=== PATIENT | male | born 1930 | race Two or more races ===

== ENCOUNTER 2017-06-06 03:20 | Inpatient (IN) | payer MEDICARE, OTHER ==
[2017-06-06] VITALS (54 sets, daily range): BP systolic 82–132; BP diastolic 40–76
[~2017-06-06] VITALS: Ht 165.1 cm; Wt 60.8 kg
[~2017-06-06 03:20] MED LIST: ACET650T10 GT; AMLO10TA2 PO; BISA10SU8 RC; COLC0.6T67 GT; DOCU-141 PO; FERR325T24 PO; HYDR-3974 PO; LEVE500T9 GT; MAGN400O6 GT; MULT1CAP34 GT; NA P133E RC; PANT40TA4 PO
--- NOTE | 2017-06-06 03:22 | NUR ---
PT TO ER BED 5. PT [facility]IB[facility] FROM [facility] C/O "TACHYCARDIA/HYPOTENSION AND BLOOD IN GTUBE". PT PLACED ON NRB @15LPM, ROOM AIR O2 SAT AT 81. PT PLACED IN GOWN AND ON GEOPHYSICS PROFESSOR. PT TACHYCARDIC AT 112/RESP EVEN TACHYPNEIC AT 28/NAD NOTED/SKIN WARM AND DRY, RECTAL TEMP AT 102.4/NOTED DARK COLORED DIARRHEA/AOX1. MD AT BEDSIDE. PT HAS F/C AND GTUBE ON ARRIVAL. NOTED DRESSING TO SACRAL AREA.
[2017-06-06] MEDS ORDERED: IV NS 0.9% 1,000 ML BAG IV ONE ×3 (03:30→05:00)
--- NOTE | 2017-06-06 03:35 | NUR ---
18G IV TO R FA X 1 ATTEMPT USING ASEPTIC TECH, BLOOD CULT X 2 AND BLOOD HANDED OVER TO LAB AT BEDSIDE. URINE SPECIMEN FROM SAMANO CATH OBTAINED AND HANDED OVER TO LAB.
[2017-06-06] MEDS ORDERED: PANTOPRAZOLE 40 MG VIAL ONE (03:37)
[2017-06-06] MEDS ORDERED: ACETAMINOPHEN ES 500 MG TABLET ONE (03:38)
[2017-06-06] MEDS ORDERED: PIPERACILLIN /TAZOBACTAM 3.375 G VIAL IV ONE (03:38)
[2017-06-06] MEDS ORDERED: VANCOMYCIN 1 GM VIAL ONE (03:38)
--- NOTE | 2017-06-06 03:45 | NUR ---
EMT AT BEDSIDE TO OBTAIN EKG.
[2017-06-06] MEDS ORDERED: PANTOPRAZOLE 40 MG VIAL IV ONE (04:00)
[2017-06-06] MEDS ORDERED: ACETAMINOPHEN 160 MG/5 ML GT ONE (04:00)
[2017-06-06] MEDS ORDERED: PIPERACILLIN /TAZOBACTAM 3.375 G in IV D5W 50 ML IV ONE (04:00)
[2017-06-06] MEDS ORDERED: VANCOMYCIN 1 GM in IV D5W 250 ML IV ONE (04:00)
--- NOTE | 2017-06-06 04:06 | NUR ---
XRAY AT BEDSIDE.
[2017-06-06 04:14] LABS: APPEARANCE,URINE SL CLOUDY (CLEAR); BILIRUBIN,URINE NEGATIVE (NEGATIVE); BLOOD, URINE 1+ Ery/uL (NEGATIVE); COLOR,URINE YELLOW (YELLOW); KETONES,URINE NEGATIVE (NEGATIVE); LEUKOCYTE ESTERASE ,URINE 1+ (NEGATIVE); NITRITE, URINE NEGATIVE (NEGATIVE); PROTEIN,URINE 1+ mg/dl (NEGATIVE); UGLUCOSE NEGATIVE (NEGATIVE); UROBILINOGEN,URINE 0.2 EU/dL (0.2)
[2017-06-06 04:18] LABS: BASOPHILS # (AUTO) 0.1 /CMM (0.0-0.2); BASOPHILS % (AUTO) 0.3 % (0.0-2.0); EOSINOPHILS # (AUTO) 0.2 /CMM (0.0-0.7); EOSINOPHILS % (AUTO) 1.2 % (0.0-6.0); HEMATOCRIT 28 % (39-51); HEMOGLOBIN 9.7 g/dL (13.5-17.5); LYMPHOCYTES # (AUTO) 0.8 /CMM (0.8-4.8); LYMPHOCYTES % (AUTO) 4.3 % (20.0-44.0); MEAN CORPUSCULAR HEMOGLOBIN 33 PG (26.0-33.0); MEAN CORPUSCULAR HGB CONC 34 g/dl (31.0-36.0); MEAN CORPUSCULAR VOLUME 95 fL (80-96); MONOCYTES # (AUTO) 1.3 /CMM (0.1-1.30); MONOCYTES % (AUTO) 7.4 % (2.0-12.0); NEUTROPHILS # (AUTO) 15.1 /CMM (1.8-8.9); NEUTROPHILS % (AUTO) 86.8 % (43.0-81.0); PLATELET COUNT (AUTO) 357 /CMM (150-450); RDW COEFFICIENT OF VARIATION 15.7 (11.5-15.0); RED BLOOD CELL COUNT(AUTO) 2.97 MIL/uL (4.5-6.0); WHITE BLOOD COUNT (AUTO) 17.5 K/uL (4.3-11.0)
[2017-06-06 04:28] LABS: CALCIUM, SERUM 8.9 mg/dL (8.5-10.1); CARBON DIOXIDE 24 mmol/L (21-32); CHLORIDE 118 mmol/L (98-107); CREATININE 1.8 mg/dL (0.6-1.3); GLUCOSE 108 mg/dL (74-106); POTASSIUM 4.9 mmol/L (3.5-5.1); SODIUM SERUM 153 mmol/L (136-145); UREA NITROGEN, BLOOD 34 mg/dL (7-18)
[2017-06-06 04:30] LABS: BACTERIA,URINE None seen /HPF (None Seen); CALCIUM OXALATE CRYSTALS,UR Few /HPF (None Seen); SQUAMOUS EPITHELIAL CELL,UR Few /HPF (None Seen); YEAST,URINE Many /HPF (None Seen)
[2017-06-06 04:34] LABS: ALANINE AMINOTRANSFERASE 10 U/L (12-78); ALBUMIN 1.5 g/dL (3.4-5.0); ALKALINE PHOSPHATASE 85 U/L (46-116); ASPARTATE AMINOTRANSFERASE 25 U/L (15-37); BILIRUBIN,TOTAL 0.3 mg/dL (0.2-1.0); TOTAL PROTEIN, SERUM 6.1 g/dL (6.4-8.2)
[2017-06-06 04:36] LABS: TROPONIN I < 0.017 ng/mL (0.00-0.056)
[2017-06-06 04:38] LABS: INR 1.05 (0.87-1.13)
[2017-06-06 04:47] LABS: BAND % (MANUAL) 3 % (0.0-5.0); EOSINOPHILS % (MANUAL) 2 % (0-4); LYMPHOCYTES % (MANUAL) 5 % (16-48); MONOCYTES % (MANUAL) 4 % (0-11.0); NEUTROPHILS % (MANUAL) 86 (42-76)
--- NOTE | 2017-06-06 05:11 | NUR ---
SETUP AT BEDSIDE FOR CENTRAL LINE PROCEDURE.
--- NOTE | 2017-06-06 05:34 | NUR ---
AT BEDSIDE FOR CENTRAL LINE PLACEMENT.
--- NOTE | 2017-06-06 06:07 | NUR ---
CALLED WOOD TYPE FINISHER FOR ICU BED
--- NOTE | 2017-06-06 06:07 | NUR ---
CENTRAL LINE TO THE LEFT INTERNAL JUGULAR PLACED BY MD USING CHAIR TRIMMER.
--- NOTE | 2017-06-06 06:10 | NUR ---
ICU 261
[2017-06-06] MEDS ORDERED: NOREPINEPHRINE 4 MG/4 ML AMPUL IV ONE (06:14)
--- NOTE | 2017-06-06 06:18 | NUR ---
XRAY AT BEDSIDE TO CHECK PLACEMENT OF CENTRAL LINE.
--- NOTE | 2017-06-06 06:27 | NUR ---
LEVOPHED 8MG STARTED AT 1MCG/MIN PER MD ORDER. TITRATE PER PROTOCOL.
[2017-06-06] MEDS ORDERED: NOREPINEPHRINE 8 MG in IV D5W 500 ML IV PRN ×8 (06:30→09:30)
--- NOTE | 2017-06-06 06:39 | NUR ---
REPORT GIVEN TO SAE BRUNNER FOR BRYN.
--- NOTE | 2017-06-06 06:43 | NUR ---
LEVOPHED AT 1MCG/MIN INFUSING TO ICU.
[2017-06-06] MEDS ORDERED: ZOLPIDEM TARTRATE 5 MG TABLET PO PRN (07:00)
[2017-06-06] MEDS ORDERED: IV NS 0.9% 1,000 ML IV PRN (07:00)
[2017-06-06] MEDS ORDERED: ONDANSETRON HCL/PF 4 MG/2 ML VIAL IVP PRN (07:00)
[2017-06-06] MEDS ORDERED: ACETAMINOPHEN 325 MG TABLET PO PRN (07:00)
--- NOTE | 2017-06-06 07:00 | NUR ---
LITIGATION SECRETARY RCD PT FROM ER ON ROOM AIR DUSKY COLORED SPO2 70s; PER ER REPORT PT ON NRB MASK. BL SOFT WRIST RESTRAINTS IN PLACE HOWEVER NO ORDER NOTED WILL REMOVE AND ASSESS NEED; SBP 80s WILL START LEVOPHED AT 2 MCG/MIN.
--- NOTE | 2017-06-06 07:05 | NUR ---
HARBOR MASTER C PHYLLIS DOLL WIGS HACKLER AT BEDSIDE TO EVAL PT WITH ORDER FOR ABG.
--- NOTE | 2017-06-06 07:30 | NUR ---
DEVICE PROCESSING ENGINEER NOTES RECEIVED PATIENT LETHARGIC , RESPONSIVE TO TACTILE STIMULI , ON 15LPM NON REBREATHER MASK SPO2 OF 97% AFIB 85 ON BEDSIDE MONITOR , GT PATENT AND INTACT CLAMPED , GREENISH GASTRIC FLUID NOTED UPON ASPIRATION , NO BLEEDING NOTED , FC DRAINING VIA GRAVITY , ON VICKEY BED , SKIN ASSESSMENT DONE , TOOK PICTURES AND PLACED IN THE CHART , WILL ORDER WOUND CONSULT , L IJ TLC PATENT AND INTACT WITH LEVOPHED @ 2MCG/MIN , NS @ 100 ML/HR INFUSING WELL , R FA # 18 PATENT AND INTACT SL , BILATERAL SOFT WRIST RESTRAINS IN PLACE , VISUAL CHECK PER PROTOCOL , ALL NEEDS ATTENDED , BED ON LOW AND LOCKED POSITION , APPLIED PADDED SIDE RAILS X2 , HOB @ 35 , WILL CONTINUE TO MONITOR , AWAITING FOR ADMISSION ORDERS .
[2017-06-06 07:33] LABS: ABG BASE EXCESS -2.4 mmol/L; ABG OXYGEN SATURATION 91.1 % (92.0-98.5); ABG PCO2 34.8 mmHg (35.0-45.0); ABG PH 7.415 (7.350-7.450); AaDO2 609.2 mmHg; COHb 0.3 % (0.5-1.5); MetHb 0.6 % (0.0-1.5); O2Hb 90.3 % (94.0-97.0); SITE, ABG Right Brachial; VENT MODE, BG NON REBREATHER
[2017-06-06 07:52] LABS: BILIRUBIN,DIRECT 0.1 mg/dL (0.0-0.2)
[2017-06-06] MEDS ORDERED: MICAFUNGIN SODIUM 150 MG in IV NS 0.9% 100 ML IV SCH (08:00)
[2017-06-06] MEDS: AMLODIPINE BESYLATE 10 MG TABLET PO SCH (08:37)
[2017-06-06] MEDS ORDERED: FEE PK DOSING 1 MIN EA MC ONE (08:46)
[2017-06-06] MEDS ORDERED: HEPARIN SODIUM, PORCINE 5000 UNITS/1 ML VIAL SQ SCH (09:00)
[2017-06-06] MEDS: FERROUS SULFATE (325 MG) 325 MG/TAB TABLET PO SCH (09:08)
[2017-06-06] MEDS: MULTIVITAMINS,THERAGRAN 1 UDTAB TABLET PO SCH (09:08)
[2017-06-06] MEDS: LEVETIRACETAM (250 MG) 250 MG TABLET PO SCH ×3 (09:08→21:04)
[2017-06-06] MEDS: DOCUSATE SODIUM 100 MG CAPSULE PO SCH ×2 (09:08→16:05)
[2017-06-06] MEDS: COLCHICINE 0.6 MG TABLET PO SCH (09:10)
--- NOTE | 2017-06-06 12:00 | NUR ---
WHITE KID BUFFER NOTES SEEN AND EVALUATED BY TERI GRAHAM , DISCUSSED WOUND ASSESSMENT , BIG MACHINE CONSULTANT AWARE , AWAITING FOR WOUND TX ORDER
[2017-06-06 12:29] LABS: HEMOGLOBIN 7.7 g/dL (13.5-17.5)
[2017-06-06] MEDS: PIPERACILLIN /TAZOBACTAM 2.25 G in IV D5W 50 ML IV SCH ×2 (13:00→16:59)
[2017-06-06] MEDS: IV 1/2NS 1000 ML 1,000 ML IV PRN ×2 (13:05→20:59)
--- NOTE | 2017-06-06 13:20 | NUR ---
CLINICAL ENGINEERING DIRECTOR NOTES AND DAUGHTER AT BEDSIDE , DISCUSSED PLAN OF WOUND DEBRIDEMENT OF SACRAL AND RIGHT BUTTOCK WOUND , DAUGHTER TRANSLATING THE PROCEDURE TO HER MOTHER IN MONTSERRATIAN , DISCUSSED RISK AND BENEFITS OF THE PROCEDURE , AGREED , DR HERRERA AT BEDSIDE , DISCUSSED PATIENT CHIEF COMPLAINT AND DIAGNOSIS , LABS , ABG RESULT AND CHEST XRAY , NOTED WITH MODERATE AMOUNT OF DARK TARRY STOOL , STOOL OB SENT TO LAB , OFF PRESSORS WITH SBP OF 100'S , AWARE AWAITING FOR ORDERS Addendum: 06/06/17 at 1829 by RAMIN AYALA RN PER KEEP PATIENT NPO EXCEPT MEDS
--- NOTE | 2017-06-06 13:27 | NUR ---
SPUDDER NOTES CALLED DR VILLARREAL , DISCUSSED REPEAT H/H RESULT , AWARE , AWAITING FOR ORDERS
[2017-06-06] MEDS ORDERED: IV LR 1000 ML 1,000 ML IV ONE (16:00)
--- NOTE | 2017-06-06 16:00 | NUR ---
ENVIRONMENTAL PROJECTS ADVISOR NOTES SEEN AND EVALUATED BY DR PETERSON , NOTIFIED PT IS OFF PRESSORS SINCE 929 WITH SBP OF 90-100'S , ON 15LPM MASK SPO2 OF 100% DISCUSSED LABS , ABG , CHEST XRAY RESULT , REVIEWED ACTUAL CHEST XRAY FILM TO VERIFY L IJ TLC PLACEMENT , PER MD CENTRAL LINE ON THE RIGHT PLACE , PENDING 1 UNIT PRBC 'S PT HAD MODERATE DARK TARRY STOOL , AWARE
[2017-06-06] MEDS: PANTOPRAZOLE 40 MG VIAL IV SCH (16:06)
[2017-06-06] MEDS: Z GUARD REMEDY 2 OZ OINT TP PRN (16:59)
[2017-06-06 18:11] LABS: HEMOGLOBIN 7.4 g/dL (13.5-17.5)
--- NOTE | 2017-06-06 18:28 | NUR ---
SUCTION DRUM DRIER OPERATOR NOTES TITRATED O2 TO 10LPM MASK , NOTED WITH DESATURATION @ 70% , PLACED BACK PT TO NON REBREATHER MASK @ 15LPM , SPO2 OF 97%
[2017-06-07] VITALS (30 sets, daily range): BP systolic 91–147; BP diastolic 52–77
[2017-06-07] MEDS: PIPERACILLIN /TAZOBACTAM 2.25 G in IV D5W 50 ML IV SCH ×4 (00:15→17:00)
[2017-06-07] MEDS: VANCOMYCIN 0.75 GM in IV D5W 250 ML IV SCH (04:02)
[2017-06-07 04:41] LABS: BASOPHILS % (AUTO) 0.2 % (0.0-2.0); EOSINOPHILS # (AUTO) 1.5 /CMM (0.0-0.7); EOSINOPHILS % (AUTO) 12.7 % (0.0-6.0); HEMATOCRIT 21 % (39-51); LYMPHOCYTES # (AUTO) 0.5 /CMM (0.8-4.8); LYMPHOCYTES % (AUTO) 4.2 % (20.0-44.0); MEAN CORPUSCULAR HEMOGLOBIN 31 PG (26.0-33.0); MEAN CORPUSCULAR HGB CONC 32 g/dl (31.0-36.0); MEAN CORPUSCULAR VOLUME 95 fL (80-96); MONOCYTES # (AUTO) 0.5 /CMM (0.1-1.30); MONOCYTES % (AUTO) 4.5 % (2.0-12.0); NEUTROPHILS # (AUTO) 9.4 /CMM (1.8-8.9); NEUTROPHILS % (AUTO) 78.4 % (43.0-81.0); PLATELET COUNT (AUTO) 199 /CMM (150-450); RDW COEFFICIENT OF VARIATION 16.7 (11.5-15.0)
[2017-06-07 04:51] LABS: HEMOGLOBIN 6.7 g/dL (13.5-17.5)
[2017-06-07 05:03] LABS: CALCIUM, SERUM 7.7 mg/dL (8.5-10.1); CARBON DIOXIDE 28 mmol/L (21-32); CHLORIDE 121 mmol/L (98-107); CREATININE 1.5 mg/dL (0.6-1.3); GLUCOSE 73 mg/dL (74-106); MAGNESIUM 1.6 mg/dL (1.8-2.4); PHOSPHORUS 3.1 mg/dL (2.5-4.9); SODIUM SERUM 151 mmol/L (136-145); UREA NITROGEN, BLOOD 39 mg/dL (7-18)
[2017-06-07 05:04] LABS: CHOLESTEROL 60 mg/dL (<200); HDL CHOLESTEROL 18 mg/dL (40-60); LDL 28 mg/dL (0-99); TRIGLYCERIDES 70 mg/dL (30-150)
[2017-06-07 05:29] LABS: EOSINOPHILS % (MANUAL) 9 % (0-4); LYMPHOCYTES % (MANUAL) 7 % (16-48); MONOCYTES % (MANUAL) 3 % (0-11.0); NEUTROPHILS % (MANUAL) 81 (42-76)
--- NOTE | 2017-06-07 07:05 | NUR ---
RN INITIAL NOTES RECEIVED PT ASLEEP, EASY TO AROUSE. PT ON NON-REBREATHER AT 15LPM. HOB ELEVATED. NO RESPIRATORY DISTRESS NOTED. NO SIGNS OF PAIN NOTED. LIJ TLC IN PLACE. IVF INFUSING. GT IN PLACE, CLAMPED. FC IN PLACE. BLE ELEVATED. PT COMFORTABLE. WILL CONTINUE TO MONITOR.
[2017-06-07] MEDS ORDERED: PANTOPRAZOLE 40 MG TABLET.DR PO SCH (07:30)
[2017-06-07] MEDS: LEVETIRACETAM (250 MG) 250 MG TABLET PO SCH ×2 (08:16→21:04)
[2017-06-07] MEDS: PANTOPRAZOLE 40 MG VIAL IV SCH ×2 (08:16→17:00)
[2017-06-07] MEDS: COLCHICINE 0.6 MG TABLET PO SCH (08:16)
[2017-06-07] MEDS: FERROUS SULFATE (325 MG) 325 MG/TAB TABLET PO SCH (08:16)
[2017-06-07] MEDS: DOCUSATE SODIUM 100 MG CAPSULE PO SCH ×2 (08:16→17:00)
[2017-06-07] MEDS: MULTIVITAMINS,THERAGRAN 1 UDTAB TABLET PO SCH (08:16)
[2017-06-07] MEDS: AMLODIPINE BESYLATE 10 MG TABLET PO SCH (08:16)
--- NOTE | 2017-06-07 08:48 | NUR ---
RN NOTES 1 UNIT OF PRBC STARTED TRANSFUSING. RI TLC IN PLACE. AFEBRILE. VITAL SIGNS STABLE. WILL CLOSELY MONITOR. Addendum: 06/07/17 at 1846 by SINDI SANTOS RN [id number] 1 UNIT OF PRBC TRANSFUSED. NO BT REACTION NOTED. PT REMAINS AFEBRILE. TOLERATED WELL. WILL CLOSELY MONITOR.
[2017-06-07 09:30] LABS: ABG BASE EXCESS -5.6 mmol/L; ABG OXYGEN SATURATION 97.9 % (92.0-98.5); ABG PCO2 31.1 mmHg (35.0-45.0); ABG PH 7.395 (7.350-7.450); ABG PO2 169.7 mmHg (75.0-100.0); AaDO2 512.2 mmHg; COHb 0.3 % (0.5-1.5); MetHb 2.2 % (0.0-1.5); O2Hb 95.5 % (94.0-97.0); SITE, ABG Left Radial; VENT MODE, BG NON REBREATHER
[2017-06-07] MEDS: IV 1/2NS 1000 ML 1,000 ML IV PRN ×2 (09:31→21:22)
--- NOTE | 2017-06-07 09:50 | NUR ---
RN NOTES SEEN AND EXAMINED BY DR. VILLARREAL. AWARE OF LAB VALUES: WBC 12., HGB 6.7, HCT 21, PLATELET 199. NO SIGNS OF ACTIVE BLEEDING NOTED. 1 UNIT OF PRBC TRANSFUSING. SODIUM 151, BUN 19, CREA 1.5. MD ORDERED CONSULT WITH DR. GRIFFIN FOR GI BLEED AND STANDING ORDER TO GIVE 2 UNITS OF PRBC FOR HGB<7. WILL RECHECK H/H 1 HR POST BT. WILL CONTINUE TO MONITOR.
--- NOTE | 2017-06-07 10:04 | NUR ---
WOUND CARE CONSULT WOUND CARE RECEIVED CONSULT. WOUND CARE WILL DEFER TO SURGICAL TEAM AT THIS TIME SURGICAL TEAM FOLLOWING. TREATMENT ORDERS PER SURGICAL TEAM. PATIENT WITH NAFISA AT 11, ALL PRESSURE ULCER PREVENTION MEASURES NOTED TO BE IN PLACE AT THIS TIME.
--- NOTE | 2017-06-07 10:15 | NUR ---
RN NOTES SEEN AND EXAMINED BY DR. ALCARAZ. PT ON NON-REBREATHER AT 15LPM. HOB ELEVATED. AWARE OF LATEST CXR RESULT. AWARE OF ABG RESULT AND ORDERED PLACE ON AT 6LPM AND KEEP O2 SAT ABOVE 91%. WILL CLOSELY MONITOR.
--- NOTE | 2017-06-07 11:15 | NUR ---
RN NOTES SP SACRAL DEBRIDEMENT BY DR. HUYNH. COVERED WITH MEPILEX. WILL KEEP CLEAN AND DRY. WILL REPOSITION Q2. WILL CONTINUE TO MONITOR.
[2017-06-07] MEDS ORDERED: Magnesium 1GM/D5W 100ML PREMIX 100 ML IV SCH (11:30)
[2017-06-07] MEDS: HYDROCODONE/APAP 5/325MG 1 EACH TABLET PO PRN (12:32)
[2017-06-07 13:37] LABS: HEMOGLOBIN 7.8 g/dL (13.5-17.5)
--- NOTE | 2017-06-07 16:30 | NUR ---
RN NOTES SEEN AND EXAMINED BY ROBIN PAREKH. REVIEWED H&P, CURRENT MEDS AND LAB VALUES. ORDERED EGD IN AM. AT BEDSIDE AWARE. CONSENT OBTAINED FROM . WILL KEEP PT NPO. NO SIGNS OF ACTIVE BLEEDING NOTED. WILL MONITOR.
--- NOTE | 2017-06-07 18:42 | NUR ---
RN CLOSING NOTES PT KEPT ON 02 AT 6PM VIA NC. KEPT 02 SAT >91%. KEPT HOB ELEVATED. NO RESPIRATORY DISTRESS NOTED. NO SIGNS OF PAIN NOTED. IV LINE IN PLACE. AWAITING FOR MIDLINE INSERTION. IVF INFUSING. GT CLAMPED. FC IN PLACE. KEPT CLEAN AND DRY. TX PROVIDED ORDERED. REPOSITIONED Q2. KEPT COMFORTABLE. WILL ENDORSE FOR CONTINUITY OF CARE.
--- NOTE | 2017-06-07 18:59 | NUR ---
RN NOTES [facility] CALLED REGARDING POSITIVE MRSA NARES RESULT FOR PT. DR. HERRERA AWARE. ORDERED CONTACT ISOLATION AND BACTROBAN. WILL CONTINUE TO MONITOR.
[2017-06-07 19:29] LABS: HEMOGLOBIN 8.6 g/dL (13.5-17.5)
--- NOTE | 2017-06-07 20:00 | NUR ---
PARK SERVICES SPECIALIST - NOTES - PT KEPT ON 02 AT 6PM VIA NC. KEPT 02 SAT >91%. KEPT HOB ELEVATED. NO RESPIRATORY DISTRESS NOTED. NO SIGNS OF PAIN NOTED. IV LINE IN PLACE. AWAITING FOR MIDLINE INSERTION. IVF INFUSING. GT CLAMPED. FC IN PLACE. KEPT CLEAN AND DRY. TX PROVIDED ORDERED. REPOSITIONED Q2. KEPT COMFORTABLE. WILL CONTINUE TO MONITOR
[2017-06-07] MEDS: MUPIROCIN OINT 2% 22 GM TUBE SCH (21:00)
--- NOTE | 2017-06-07 21:00 | NUR ---
Left upper arm midline inserted by saul Evans, JIM.
[2017-06-08] VITALS (24 sets, daily range): BP systolic 115–140; BP diastolic 58–77
[2017-06-08 05:04] LABS: BASOPHILS % (AUTO) 0.3 % (0.0-2.0); EOSINOPHILS # (AUTO) 2.7 /CMM (0.0-0.7); HEMATOCRIT 23 % (39-51); HEMOGLOBIN 7.9 g/dL (13.5-17.5); LYMPHOCYTES # (AUTO) 0.5 /CMM (0.8-4.8); LYMPHOCYTES % (AUTO) 4.9 % (20.0-44.0); MEAN CORPUSCULAR HEMOGLOBIN 33 PG (26.0-33.0); MEAN CORPUSCULAR HGB CONC 34 g/dl (31.0-36.0); MEAN CORPUSCULAR VOLUME 97 fL (80-96); MONOCYTES # (AUTO) 0.5 /CMM (0.1-1.30); NEUTROPHILS # (AUTO) 6.1 /CMM (1.8-8.9); NEUTROPHILS % (AUTO) 62.1 % (43.0-81.0); PLATELET COUNT (AUTO) 202 /CMM (150-450); RDW COEFFICIENT OF VARIATION 15.9 (11.5-15.0); RED BLOOD CELL COUNT(AUTO) 2.41 MIL/uL (4.5-6.0); WHITE BLOOD COUNT (AUTO) 9.8 K/uL (4.3-11.0)
[2017-06-08 05:11] LABS: EOSINOPHILS % (AUTO) 27.7 % (0.0-6.0)
[2017-06-08 05:28] LABS: CALCIUM, SERUM 7.1 mg/dL (8.5-10.1); CARBON DIOXIDE 23 mmol/L (21-32); CHLORIDE 116 mmol/L (98-107); CREATININE 1.5 mg/dL (0.6-1.3); GLUCOSE 56 mg/dL (74-106); MAGNESIUM 1.8 mg/dL (1.8-2.4); PHOSPHORUS 3.4 mg/dL (2.5-4.9); POTASSIUM 3.6 mmol/L (3.5-5.1); SODIUM SERUM 146 mmol/L (136-145); UREA NITROGEN, BLOOD 35 mg/dL (7-18)
[2017-06-08] MEDS: PIPERACILLIN /TAZOBACTAM 2.25 G in IV D5W 50 ML IV SCH ×6 (05:38→23:15)
[2017-06-08] MEDS: VANCOMYCIN 0.75 GM in IV D5W 250 ML IV SCH (05:38)
[2017-06-08 05:44] LABS: EOSINOPHILS % (MANUAL) 22 % (0-4); LYMPHOCYTES % (MANUAL) 2 % (16-48); MONOCYTES % (MANUAL) 5 % (0-11.0); NEUTROPHILS % (MANUAL) 71 (42-76)
--- NOTE | 2017-06-08 07:10 | NUR ---
RN INITIAL NOTES RECEIVED PT ASLEEP, EASY TO AROUSE. PT ON 02 AT 6LPM VIA NC. HOB ELEVATED. NO RESPIRATORY DISTRESS NOTED. NO SIGNS OF PAIN NOTED. RADHA MIDLINE IN PLACE. IVF INFUSING. GT IN PLACE, CLAMPED. FC IN PLACE. BLE ELEVATED. PT COMFORTABLE. WILL CONTINUE TO MONITOR.
[2017-06-08] MEDS: PANTOPRAZOLE 40 MG VIAL IV SCH (08:34)
[2017-06-08] MEDS: LEVETIRACETAM (250 MG) 250 MG TABLET PO SCH ×2 (08:34→20:30)
[2017-06-08] MEDS: COLCHICINE 0.6 MG TABLET PO SCH (08:42)
[2017-06-08] MEDS: MULTIVITAMINS,THERAGRAN 1 UDTAB TABLET PO SCH (08:42)
[2017-06-08] MEDS: DOCUSATE SODIUM 100 MG CAPSULE PO SCH ×2 (08:42→17:04)
[2017-06-08] MEDS: FERROUS SULFATE (325 MG) 325 MG/TAB TABLET PO SCH (08:42)
[2017-06-08] MEDS: AMLODIPINE BESYLATE 10 MG TABLET PO SCH (08:45)
[2017-06-08 09:25] LABS: INR 1.02 (0.87-1.13)
[2017-06-08] MEDS: IV 1/2NS 1000 ML 1,000 ML IV PRN ×2 (09:26→22:12)
--- NOTE | 2017-06-08 09:30 | NUR ---
RN NOTES SEEN AND EXAMINED BY DR. ALCARAZ. PT ON AT 6LPM VIA NC. 02 SAT >91%. HOB ELEVATED. PT FOR EGD. WILL CONTINUE TO MONITOR.
--- NOTE | 2017-06-08 09:50 | NUR ---
RN NOTES PT LEFT FOR EGD. PT AWAKE, A/0X1. ON 02 AT 6LPM VIA NC. VS WNL. RADHA MIDLINE IN PLACE. LEFT IN STABLE CONDITION
--- NOTE | 2017-06-08 11:01 | NUR ---
RN NOTES DR. JAMA IN THE UNIT. PT IN THE RECOVERY ROOM, SP EGD. MD AWARE OF LAB VALUES AND EGD RESULT. DR. HARTMANN IN THE UNIT. PER DR. HARTMANN, MAY START GTF. WILL CLOSELY MONITOR ONCE PT GETS BACK IN THE UNIT FROM RECOVERY.
--- NOTE | 2017-06-08 11:10 | NUR ---
RN NOTES PT BACK FOR RECOVERY. SP EGD. PT DROWSY, ON 02 MASK AT 10LPM. PT CONNECTED TO MONITOR. HOB ELEVATED. NO SIGNS OF PAIN NOTED. ALL ORDERED NOTED AND CARRIED OUT. WILL START GTF ORDERED BY DR. HARTMANN. WILL CLOSELY MONITOR.
[2017-06-08] MEDS: MUPIROCIN OINT 2% 22 GM TUBE SCH ×2 (11:46→20:31)
[2017-06-08 12:19] LABS: THYROID STIMULATING HORMONE 118.23 uIU/mL (0.358-3.74)
[2017-06-08] MEDS: FIBERSOURCE HN 1,000 ML BOTTLE GT PRN (15:29)
[2017-06-08] MEDS ORDERED: PANTOPRAZOLE 40 MG TABLET.DR PO SCH (17:00)
--- NOTE | 2017-06-08 18:37 | NUR ---
RN CLOSING NOTES NO SIGNIFICANT CHANGE NOTED. TOLERATING 6LPM VIA NC. HOB ELEVATED. NO RESPIRATORY DISTRESS NOTED. MIDLINE IN PLACE. IVF INFUSING. GT IN PLACE. GTF STARTED. NO RESIDUAL NOTED. FC IN PLACE. TX PROVIDED ORDERED. KEPT CLEAN AND DRY. REPOSITIONED Q2. BLE ELEVATED.KEPT COMFORTABLE. WILL ENDORSE FOR CONTINUITY OF CARE.
[2017-06-08] MEDS: FLUCONAZOLE (100 MG) 100 MG TABLET PO SCH (19:34)
--- NOTE | 2017-06-08 20:00 | NUR ---
WOOD ROUTER - NOTES - PT KEPT ON 02 AT 6PM VIA NC. KEPT 02 SAT >91%. KEPT HOB ELEVATED. NO RESPIRATORY DISTRESS NOTED. NO SIGNS OF PAIN NOTED. RADHA MIDLINE AND RIGHT HAND 20G IV LINE IN PLACE. AWAITING FOR MIDLINE INSERTION. IVF INFUSING. PEG WITH FIBERSOURCE @ 20 ML/HR, GOAL 60 ML/HR, NO RESIDUALS TOLERATING WELL. FC IN PLACE. KEPT CLEAN AND DRY. TX PROVIDED ORDERED. REPOSITIONED Q2. KEPT COMFORTABLE. WILL CONTINUE TO MONITOR
[2017-06-09] VITALS (25 sets, daily range): BP systolic 101–138; BP diastolic 45–85
[2017-06-09] MEDS: VANCOMYCIN 0.75 GM in IV D5W 250 ML IV SCH (04:49)
[2017-06-09 05:08] LABS: BASOPHILS % (AUTO) 0.5 % (0.0-2.0); EOSINOPHILS # (AUTO) 2.8 /CMM (0.0-0.7); HEMATOCRIT 25 % (39-51); HEMOGLOBIN 8.4 g/dL (13.5-17.5); LYMPHOCYTES # (AUTO) 0.5 /CMM (0.8-4.8); MEAN CORPUSCULAR HEMOGLOBIN 32 PG (26.0-33.0); MEAN CORPUSCULAR HGB CONC 34 g/dl (31.0-36.0); MEAN CORPUSCULAR VOLUME 95 fL (80-96); MONOCYTES # (AUTO) 0.4 /CMM (0.1-1.30); MONOCYTES % (AUTO) 5.1 % (2.0-12.0); NEUTROPHILS % (AUTO) 51.8 % (43.0-81.0); PLATELET COUNT (AUTO) 187 /CMM (150-450); WHITE BLOOD COUNT (AUTO) 7.6 K/uL (4.3-11.0)
[2017-06-09 05:12] LABS: EOSINOPHILS % (AUTO) 36.6 % (0.0-6.0)
[2017-06-09 05:28] LABS: CALCIUM, SERUM 7.5 mg/dL (8.5-10.1); CARBON DIOXIDE 19 mmol/L (21-32); CHLORIDE 113 mmol/L (98-107); CREATININE 1.6 mg/dL (0.6-1.3); GLUCOSE 83 mg/dL (74-106); POTASSIUM 3.7 mmol/L (3.5-5.1); SODIUM SERUM 144 mmol/L (136-145); UREA NITROGEN, BLOOD 32 mg/dL (7-18)
[2017-06-09 06:03] LABS: NEUTROPHILS % (MANUAL) 57 (42-76)
[2017-06-09 06:04] LABS: BAND % (MANUAL) 1 % (0.0-5.0); EOSINOPHILS % (MANUAL) 34 % (0-4); LYMPHOCYTES % (MANUAL) 5 % (16-48); MONOCYTES % (MANUAL) 3 % (0-11.0)
[2017-06-09] MEDS: PIPERACILLIN /TAZOBACTAM 2.25 G in IV D5W 50 ML IV SCH ×4 (06:06→23:04)
--- NOTE | 2017-06-09 06:39 | NUR ---
PT DESATTING INTO LOW 80S AND STARTING TO HAVE ECTOPY PVCS, COUPLETS ON 6L NC, PT SOUNDS VERY CONGESTED UNABLE TO EFFECTIVELY CLEAR SECRETIONS, NT SUCTION DONE X2 WITH THICK MUCUS SUCTIONED, DR BAIN NOTIFIED, AND ORDERED BREATHING TREATMENTS, WILL CONTINUE TO MONITOR
--- NOTE | 2017-06-09 07:39 | NUR ---
GEAR SETTER NOTES RECEIVED PATIENT AROUSABLE TO VERBAL STIMULI , NOT IN ACUTE DISTRESS , SPO2 OF 94% VIA 6LPM NC , SR WITH 1ST DEGREE AV BLOCK 61 ON BEDSIDE MONITOR , GT PATENT AND INTACT WITH GT FEEDING OF FIBERSOURCE @ 60ML/HR TOLERATING WELL WITH NO RESIDUALS NOTED , FC DRAINING VIA GRAVITY , ON VICKEY BED , RADHA MIDLINE PATENT AND INTACT WITH 1/2 NS @ 100ML/HR INFUSING WELL , R HAND # 20 PATENT AND INTACT SL , BILATERAL SOFT WRIST RESTRAINS IN PLACE , VISUAL CHECK PER PROTOCOL , ALL NEEDS ATTENDED , BED ON LOW AND LOCKED POSITION , PADDED SIDE RAILS X2 , HOB @ 35 , WILL CONTINUE TO MONITOR ,
[2017-06-09] MEDS: FERROUS SULFATE (325 MG) 325 MG/TAB TABLET PO SCH (08:02)
[2017-06-09] MEDS: MULTIVITAMINS,THERAGRAN 1 UDTAB TABLET PO SCH (08:02)
[2017-06-09] MEDS: AMLODIPINE BESYLATE 10 MG TABLET PO SCH (08:02)
[2017-06-09] MEDS: PANTOPRAZOLE 40 MG/PACK PACK GT SCH ×2 (08:02→21:26)
[2017-06-09] MEDS: DOCUSATE SODIUM 100 MG CAPSULE PO SCH ×2 (08:02→17:00)
[2017-06-09] MEDS: COLCHICINE 0.6 MG TABLET PO SCH (08:02)
[2017-06-09] MEDS: LEVETIRACETAM (250 MG) 250 MG TABLET PO SCH ×2 (08:06→21:26)
[2017-06-09] MEDS: MUPIROCIN OINT 2% 22 GM TUBE SCH ×2 (08:07→21:27)
[2017-06-09] MEDS: FLUCONAZOLE (100 MG) 100 MG TABLET PO SCH (08:07)
[2017-06-09 08:08] LABS: T3, FREE 1.2 pg/mL (2.0-4.4)
[2017-06-09] MEDS: ACETYLCYSTEINE 10% SOLN 400 MG/4 ML VIAL NEB SCH ×3 (08:47→23:13)
[2017-06-09] MEDS: IPRATROPIUM NEB FS 0.5 MG/2.5 ML AMPUL.NEB NEB SCH ×3 (08:47→19:23)
[2017-06-09] MEDS: ALBUTEROL FS 2.5 MG/0.5 ML VIAL.NEB NEB SCH ×5 (08:47→23:13)
--- NOTE | 2017-06-09 09:30 | NUR ---
RN NOTES SEEN AND EXAMINED BY DR. ALCARAZ. DISCUSSED LABS , PENDING ABG RESULT , PT ON AT 6LPM VIA NC. 02 SAT >92%-94%. NOTED WITH CONGESTION , DEEP SUCTION PATIENT NOTED WITH THICK SECRETIONS WITH MUCUS PLUG , AFEBRILE , V/S STABLE , DISCUSSED RESULT OF EGD , PT NOTED OT HAVE DARK TARRY STOOLS . Addendum: 06/09/17 at 0934 by RAMIN AYALA RN DISCUSSED THAT PATIENT HAD EPISODES OF DESATURATION LAST NIGHT SPO2 OF 70-80% ON 6LPM , DEEP SUCTION PATIENT , AND PLACED ON NON REBREATHER MASK PER NIGHT RN ,
[2017-06-09 09:40] LABS: ABG BASE EXCESS -6.7 mmol/L; ABG OXYGEN SATURATION 95.9 % (92.0-98.5); ABG PH 7.403 (7.350-7.450); ABG PO2 88.1 mmHg (75.0-100.0); AaDO2 251.3 mmHg; COHb 0.3 % (0.5-1.5); MetHb 0.5 % (0.0-1.5); O2Hb 95.1 % (94.0-97.0); SITE, ABG Right Radial; VENT MODE, BG ON RESP TX MASK
[2017-06-09] MEDS: IV 1/2NS 1000 ML 1,000 ML IV PRN ×2 (10:10→18:33)
--- NOTE | 2017-06-09 11:13 | NUR ---
WOOL SHEARER NOTES SEEN AND EVALUATED BY DR JAMA , PT MORE AWAKE , DISCUSSED LABS , CHEST XRAY AND ABG RESULT , CURRENTLY @ 6LPM NC SPO2 OF 90-92% , DEEP SUCTIONED PT NOTED WITH MUCUS PLUG AND THICK YELLOWISH SECRETIONS , AFEBRILE NOTED WITH MOD AMOUNT OF DARK TARRY STOOLS , MD AWARE
--- NOTE | 2017-06-09 11:31 | NUR ---
BRANCH SPECIALIST NOTES PATIENT NOTEDWITH DESATURATION SPO2 OF 87-88 SUSTAINING , DEEP SUCTIONED PT NOTED WITH THICK SECRETIONS , PLACED PT ON 10LPM SIMPLE MASK, WILL CONTINUE TO MONITOR
--- NOTE | 2017-06-09 12:36 | NUR ---
PENS AND PENCILS DIPPER NOTES RELAYED ABG RESULT TO DR ALCARAZ , NO NEW ORDERS RECEIVED .
[2017-06-09] MEDS: FIBERSOURCE HN 1,000 ML BOTTLE GT PRN (13:06)
--- NOTE | 2017-06-09 13:10 | NUR ---
FISHER POUND NET OR TRAP NOTES SEEN AND EVALUATED BY IGLESIA KELLY , DISCUSSED LABS , V/S , NOTED WITH MODERATE AMOUNT OF DARK TARRY STOOLS , TOLERATING GT FEEDING , SENIOR TABLEAU DEVELOPER AWARE
[2017-06-09] MEDS: HYDROCODONE/APAP 5/325MG 1 EACH TABLET PO PRN (13:28)
--- NOTE | 2017-06-09 20:40 | NUR ---
received pt from day shift, alert, does not follow commands, SR 1 degree AV block, on simple mask at 8L, sat well, lungs congested/diminished, deep suction done, GT feeding tolerates well, f/c low output MD aware, v/s stable, no pain, pt turned and repositioned.
[2017-06-10] VITALS (25 sets, daily range): BP systolic 107–135; BP diastolic 57–73
--- NOTE | 2017-06-10 00:31 | NUR ---
pt is resting in the bed, v/s stable, no pain, pt turned and repositioned q2hrs.
[2017-06-10] MEDS: ALBUTEROL FS 2.5 MG/0.5 ML VIAL.NEB NEB SCH ×6 (02:45→23:12)
[2017-06-10] MEDS: IPRATROPIUM NEB FS 0.5 MG/2.5 ML AMPUL.NEB NEB SCH ×4 (02:45→19:01)
[2017-06-10] MEDS: IV 1/2NS 1000 ML 1,000 ML IV PRN ×2 (03:36→17:02)
--- NOTE | 2017-06-10 04:21 | NUR ---
pt is resting in the bed, no acute distress overnight, tolerates feeding, v/s stable, no pain, pt cleaned, changed and repositioned q2hrs.
[2017-06-10] MEDS: PIPERACILLIN /TAZOBACTAM 2.25 G in IV D5W 50 ML IV SCH ×4 (05:14→23:21)
[2017-06-10] MEDS: VANCOMYCIN 0.75 GM in IV D5W 250 ML IV SCH (05:14)
[2017-06-10 05:22] LABS: BASOPHILS % (AUTO) 0.3 % (0.0-2.0); EOSINOPHILS # (AUTO) 2.5 /CMM (0.0-0.7); HEMATOCRIT 24 % (39-51); HEMOGLOBIN 8.2 g/dL (13.5-17.5); LYMPHOCYTES # (AUTO) 0.5 /CMM (0.8-4.8); LYMPHOCYTES % (AUTO) 6.3 % (20.0-44.0); MEAN CORPUSCULAR HEMOGLOBIN 33 PG (26.0-33.0); MEAN CORPUSCULAR HGB CONC 34 g/dl (31.0-36.0); MEAN CORPUSCULAR VOLUME 96 fL (80-96); MONOCYTES # (AUTO) 0.7 /CMM (0.1-1.30); MONOCYTES % (AUTO) 8.2 % (2.0-12.0); NEUTROPHILS # (AUTO) 4.4 /CMM (1.8-8.9); NEUTROPHILS % (AUTO) 54.5 % (43.0-81.0); PLATELET COUNT (AUTO) 173 /CMM (150-450); RDW COEFFICIENT OF VARIATION 16.1 (11.5-15.0)
[2017-06-10 05:35] LABS: EOSINOPHILS % (AUTO) 30.7 % (0.0-6.0)
[2017-06-10 05:43] LABS: CALCIUM, SERUM 7.1 mg/dL (8.5-10.1); CARBON DIOXIDE 21 mmol/L (21-32); CHLORIDE 109 mmol/L (98-107); CREATININE 1.7 mg/dL (0.6-1.3); GLUCOSE 114 mg/dL (74-106); MAGNESIUM 1.5 mg/dL (1.8-2.4); POTASSIUM 3.7 mmol/L (3.5-5.1); SODIUM SERUM 139 mmol/L (136-145); UREA NITROGEN, BLOOD 33 mg/dL (7-18)
[2017-06-10 06:03] LABS: EOSINOPHILS % (MANUAL) 27 % (0-4); LYMPHOCYTES % (MANUAL) 2 % (16-48); MONOCYTES % (MANUAL) 8 % (0-11.0); NEUTROPHILS % (MANUAL) 63 (42-76)
--- NOTE | 2017-06-10 07:15 | NUR ---
CONTRACTS MANAGER NOTES ISO MRSA NARES. PT RESTING COMFORTABLY. DNR INTUBATION OKAY. SR AVB. SIMPLE MASK 8L. HOB ELEVATED. FIBERSOURCE 60ML HR PEG. SACRUM STAGE III, SCROTAL ABRASION. RADHA MIDLINE 1/2 NS @100ML. MG 1.5L. OB STOOL POS HGB STABLE PROTONIX. BED IN LOW LOCKED POSITION. CALL LIGHT IN REACH. SIDE RAILS UP X 2. WILL CONT TO MONITOR CLOSELY.
[2017-06-10] MEDS: ACETYLCYSTEINE 10% SOLN 400 MG/4 ML VIAL NEB SCH ×3 (07:33→23:13)
[2017-06-10] MEDS: FERROUS SULFATE (325 MG) 325 MG/TAB TABLET PO SCH (08:33)
[2017-06-10] MEDS: LEVOTHYROXINE SODIUM 75 MCG TABLET PO SCH (08:33)
[2017-06-10] MEDS: FLUCONAZOLE (100 MG) 100 MG TABLET PO SCH (08:33)
[2017-06-10] MEDS: MULTIVITAMINS,THERAGRAN 1 UDTAB TABLET PO SCH (08:33)
[2017-06-10] MEDS: COLCHICINE 0.6 MG TABLET PO SCH (08:33)
[2017-06-10] MEDS: PANTOPRAZOLE 40 MG/PACK PACK GT SCH ×2 (08:34→20:54)
[2017-06-10] MEDS: MUPIROCIN OINT 2% 22 GM TUBE SCH ×2 (08:34→20:54)
[2017-06-10] MEDS: LEVETIRACETAM (250 MG) 250 MG TABLET PO SCH ×2 (08:34→20:54)
[2017-06-10] MEDS: DOCUSATE SODIUM 100 MG CAPSULE PO SCH ×2 (08:34→17:00)
[2017-06-10] MEDS: AMLODIPINE BESYLATE 10 MG TABLET PO SCH (08:34)
[2017-06-10] MEDS ORDERED: Magnesium 1GM/D5W 100ML PREMIX 100 ML IV SCH (10:28)
[2017-06-10] MEDS: FIBERSOURCE HN 1,000 ML BOTTLE GT PRN (13:17)
--- NOTE | 2017-06-10 17:51 | NUR ---
CLINICAL TEAM LEAD CLOSING NOTE AAO1. HOB ELEVATED. GT FEED 60 ML HR NO RESIDUALS. 1/2 NS @ 100 ML/HR. IV PATENT AND INTACT. NO ACUTE EVENTS. PT TO BE HELD IN ICU OVERNIGHT. REDUCED TO 6LNC SATS >92%. SR AVB. BED IN LOW LOCKED POSITION. SIDE RAILS U PX 3. AT BEDSIDE. BED BATH AND LINEN CHANGE AT THIS TIME. WILL ENDORSE REPORT TO NOC RN.
--- NOTE | 2017-06-10 20:33 | NUR ---
received pt from day shift, alert, follows simple commands, SR, NC on 6L 02, sat well, lungs congested, pitting edema all extremities, GT to feeding, f/c good output, restraints on, v/s stable, no pain, pt turned and repositioned.
[2017-06-10] MEDS ORDERED: ACETYLCYSTEINE 20% SOLN 800 MG/4 ML VIAL ONE (23:09)
[2017-06-10] MEDS ORDERED: ACETYLCYSTEINE 10% SOLN 400 MG/4 ML VIAL ONE (23:11)
[2017-06-11] VITALS (24 sets, daily range): BP systolic 94–124; BP diastolic 47–84
--- NOTE | 2017-06-11 00:18 | NUR ---
pt is resting in the bed, v/s stable, no pain, tolerates feeding, pt turned and repositioned q2hrs.
[2017-06-11] MEDS: IV 1/2NS 1000 ML 1,000 ML IV PRN ×2 (02:22→14:46)
[2017-06-11] MEDS: ALBUTEROL FS 2.5 MG/0.5 ML VIAL.NEB NEB SCH ×6 (03:25→22:40)
[2017-06-11] MEDS: IPRATROPIUM NEB FS 0.5 MG/2.5 ML AMPUL.NEB NEB SCH ×4 (03:25→19:35)
[2017-06-11] MEDS: VANCOMYCIN 0.75 GM in IV D5W 250 ML IV SCH ×2 (04:04→05:00)
--- NOTE | 2017-06-11 04:20 | NUR ---
pt is resting in the bed, no acute distress overnight, SR, on simple mask at 8L, tolerates feeding, v/s stable, no pain, pt cleaned, changed and repositioned q2hrs.
[2017-06-11 05:08] LABS: CALCIUM, SERUM 7.1 mg/dL (8.5-10.1); CARBON DIOXIDE 20 mmol/L (21-32); CHLORIDE 110 mmol/L (98-107); CREATININE 1.6 mg/dL (0.6-1.3); GLUCOSE 81 mg/dL (74-106); MAGNESIUM 1.8 mg/dL (1.8-2.4); POTASSIUM 3.8 mmol/L (3.5-5.1); SODIUM SERUM 140 mmol/L (136-145); UREA NITROGEN, BLOOD 30 mg/dL (7-18)
[2017-06-11] MEDS: PIPERACILLIN /TAZOBACTAM 2.25 G in IV D5W 50 ML IV SCH ×3 (05:12→17:25)
[2017-06-11 05:21] LABS: BASOPHILS % (AUTO) 0.2 % (0.0-2.0); EOSINOPHILS # (AUTO) 2.8 /CMM (0.0-0.7); HEMATOCRIT 23 % (39-51); LYMPHOCYTES # (AUTO) 0.4 /CMM (0.8-4.8); LYMPHOCYTES % (AUTO) 5.7 % (20.0-44.0); MEAN CORPUSCULAR HEMOGLOBIN 35 PG (26.0-33.0); MEAN CORPUSCULAR HGB CONC 35 g/dl (31.0-36.0); MEAN CORPUSCULAR VOLUME 100 fL (80-96); MONOCYTES # (AUTO) 0.7 /CMM (0.1-1.30); MONOCYTES % (AUTO) 9.3 % (2.0-12.0); NEUTROPHILS # (AUTO) 3.2 /CMM (1.8-8.9); NEUTROPHILS % (AUTO) 45.2 % (43.0-81.0); PLATELET COUNT (AUTO) 153 /CMM (150-450); RDW COEFFICIENT OF VARIATION 16.2 (11.5-15.0); RED BLOOD CELL COUNT(AUTO) 2.31 MIL/uL (4.5-6.0); WHITE BLOOD COUNT (AUTO) 7.2 K/uL (4.3-11.0)
[2017-06-11 05:22] LABS: EOSINOPHILS % (AUTO) 39.6 % (0.0-6.0)
[2017-06-11 06:09] LABS: BAND % (MANUAL) 5 % (0.0-5.0); EOSINOPHILS % (MANUAL) 44 % (0-4); LYMPHOCYTES % (MANUAL) 4 % (16-48); MONOCYTES % (MANUAL) 9 % (0-11.0); NEUTROPHILS % (MANUAL) 38 (42-76)
[2017-06-11] MEDS: LEVOTHYROXINE SODIUM 75 MCG TABLET PO SCH (07:30)
[2017-06-11] MEDS: ACETYLCYSTEINE 10% SOLN 400 MG/4 ML VIAL NEB SCH ×3 (07:35→22:40)
[2017-06-11] MEDS: AMLODIPINE BESYLATE 10 MG TABLET PO SCH (09:00)
[2017-06-11] MEDS: LEVETIRACETAM (250 MG) 250 MG TABLET PO SCH ×2 (09:59→21:43)
[2017-06-11] MEDS: PANTOPRAZOLE 40 MG/PACK PACK GT SCH ×2 (10:00→21:43)
[2017-06-11] MEDS: COLCHICINE 0.6 MG TABLET PO SCH (10:00)
[2017-06-11] MEDS: DOCUSATE SODIUM 100 MG CAPSULE PO SCH ×2 (10:01→16:05)
[2017-06-11] MEDS: FERROUS SULFATE (325 MG) 325 MG/TAB TABLET PO SCH (10:01)
[2017-06-11] MEDS: MULTIVITAMINS,THERAGRAN 1 UDTAB TABLET PO SCH (10:01)
[2017-06-11] MEDS: FLUCONAZOLE (100 MG) 100 MG TABLET PO SCH (10:02)
[2017-06-11] MEDS: ASCORBIC ACID 500 MG TABLET PO SCH (10:02)
[2017-06-11] MEDS: MUPIROCIN OINT 2% 22 GM TUBE SCH ×2 (10:02→21:44)
[2017-06-11] MEDS: ZINC SULFATE 220 MG CAPSULE PO SCH (10:02)
[2017-06-11 11:07] LABS: ALBUMIN 1.1 g/dL (3.4-5.0)
[2017-06-11] MEDS ORDERED: ALBUMIN 25% 12.5 GM/50 ML BOTTLE IV ONE (12:00)
[2017-06-11] MEDS ORDERED: ALBUMIN 25% 25 GM in PREMIX 1 EA IV ONE (12:30)
[2017-06-11] MEDS: METOCLOPRAMIDE HCL 10 MG/2 ML VIAL IV SCH ×2 (16:17→21:43)
--- NOTE | 2017-06-11 19:00 | NUR ---
RN NOTE PT REMAINED STABLE, ON SIMPLE MASK 8 L/MIN, WHEN RELEASED FROM RESTRAINS, PT GRABS ONTO TUBES, ALL MEDS GIVEN AND NEEDS MET, KEPT CLEAN AND DRY, PT HAD HIGH RESIDUALS, 420ML WHICH DECREASED BY THE END OF SHIFT TO 80 ML. SAFETY MEASURERS AND ISOLATION PRECAUTIONS MAINTAINED, WILL ENDORSE TO FUEL VERIFICATION TECHNICIAN.
[2017-06-11] MEDS: FIBERSOURCE HN 1,000 ML BOTTLE GT PRN (21:50)
[2017-06-12] VITALS (23 sets, daily range): BP systolic 93–118; BP diastolic 48–80
[2017-06-12] MEDS: PIPERACILLIN /TAZOBACTAM 2.25 G in IV D5W 50 ML IV SCH ×4 (00:31→17:08)
[2017-06-12] MEDS: IV 1/2NS 1000 ML 1,000 ML IV PRN ×3 (01:22→22:53)
[2017-06-12] MEDS: IPRATROPIUM NEB FS 0.5 MG/2.5 ML AMPUL.NEB NEB SCH ×4 (01:40→20:05)
[2017-06-12] MEDS: ALBUTEROL FS 2.5 MG/0.5 ML VIAL.NEB NEB SCH ×6 (01:40→23:52)
[2017-06-12] MEDS: METOCLOPRAMIDE HCL 10 MG/2 ML VIAL IV SCH ×4 (03:48→21:45)
[2017-06-12] MEDS ORDERED: VANCOMYCIN 0.75 GM in IV D5W 250 ML IV SCH (05:00)
[2017-06-12 05:25] LABS: BASOPHILS % (AUTO) 0.3 % (0.0-2.0); EOSINOPHILS # (AUTO) 2.8 /CMM (0.0-0.7); HEMATOCRIT 23 % (39-51); HEMOGLOBIN 7.9 g/dL (13.5-17.5); LYMPHOCYTES # (AUTO) 0.4 /CMM (0.8-4.8); LYMPHOCYTES % (AUTO) 5.1 % (20.0-44.0); MEAN CORPUSCULAR HEMOGLOBIN 35 PG (26.0-33.0); MEAN CORPUSCULAR HGB CONC 35 g/dl (31.0-36.0); MEAN CORPUSCULAR VOLUME 100 fL (80-96); MONOCYTES # (AUTO) 0.6 /CMM (0.1-1.30); MONOCYTES % (AUTO) 8.9 % (2.0-12.0); NEUTROPHILS # (AUTO) 3.4 /CMM (1.8-8.9); NEUTROPHILS % (AUTO) 46.9 % (43.0-81.0); PLATELET COUNT (AUTO) 127 /CMM (150-450); RDW COEFFICIENT OF VARIATION 16.3 (11.5-15.0); RED BLOOD CELL COUNT(AUTO) 2.27 MIL/uL (4.5-6.0); WHITE BLOOD COUNT (AUTO) 7.2 K/uL (4.3-11.0)
[2017-06-12 05:29] LABS: CALCIUM, SERUM 7.2 mg/dL (8.5-10.1); CARBON DIOXIDE 21 mmol/L (21-32); CHLORIDE 109 mmol/L (98-107); CREATININE 1.6 mg/dL (0.6-1.3); GLUCOSE 64 mg/dL (74-106); SODIUM SERUM 139 mmol/L (136-145); UREA NITROGEN, BLOOD 27 mg/dL (7-18)
[2017-06-12 05:39] LABS: EOSINOPHILS % (AUTO) 38.8 % (0.0-6.0)
[2017-06-12 06:16] LABS: BAND % (MANUAL) 4 % (0.0-5.0); EOSINOPHILS % (MANUAL) 48 % (0-4); LYMPHOCYTES % (MANUAL) 4 % (16-48); MONOCYTES % (MANUAL) 8 % (0-11.0); NEUTROPHILS % (MANUAL) 36 (42-76)
[2017-06-12] MEDS: LEVOTHYROXINE SODIUM 75 MCG TABLET PO SCH (07:30)
[2017-06-12] MEDS: ACETYLCYSTEINE 10% SOLN 400 MG/4 ML VIAL NEB SCH ×3 (07:35→23:30)
--- NOTE | 2017-06-12 07:50 | NUR ---
RN INITIAL NOTES RECEIVED PT AWAKE AND RESPONSIVE; NAD. REMAINS ON O2 INH @ 8 l/MIN AND TOLERATING WELL. IVF INFUSING WELL . GT IN PLACE ; HOB KEPT ELEVATED. SAMANO CATH DRAINING TO CLEAR YELLOW URINE OUTPUT. SR ON THE MONITOR WITH 1ST DEGREE AV BLOCK. SAFETY AND COMFORT ENSURED. WILL MONITOR
[2017-06-12] MEDS: COLCHICINE 0.6 MG TABLET PO SCH (09:13)
[2017-06-12] MEDS: FERROUS SULFATE (325 MG) 325 MG/TAB TABLET PO SCH (09:14)
[2017-06-12] MEDS: ZINC SULFATE 220 MG CAPSULE PO SCH (09:14)
[2017-06-12] MEDS: DOCUSATE SODIUM 100 MG CAPSULE PO SCH ×2 (09:14→16:17)
[2017-06-12] MEDS: LEVETIRACETAM (250 MG) 250 MG TABLET PO SCH ×2 (09:14→21:45)
[2017-06-12] MEDS: ASCORBIC ACID 500 MG TABLET PO SCH (09:14)
[2017-06-12] MEDS: FLUCONAZOLE (100 MG) 100 MG TABLET PO SCH (09:15)
[2017-06-12] MEDS: MULTIVITAMINS,THERAGRAN 1 UDTAB TABLET PO SCH (09:15)
[2017-06-12] MEDS: AMLODIPINE BESYLATE 10 MG TABLET PO SCH (09:15)
[2017-06-12] MEDS: PANTOPRAZOLE 40 MG/PACK PACK GT SCH ×2 (09:15→21:45)
[2017-06-12] MEDS: MUPIROCIN OINT 2% 22 GM TUBE SCH ×2 (09:16→21:49)
[2017-06-12 10:17] LABS: ALBUMIN 1.5 g/dL (3.4-5.0); CALCIUM, SERUM 7.5 mg/dL (8.5-10.1)
--- NOTE | 2017-06-12 19:00 | NUR ---
CD REACTOR OPERATOR NOTES Received patient awake,alert,with Portex tracheostomy ,on Trache collar 35%(8Liters O2),able to talk with trache,coherent and appropriate,not in distress,.Unable to move both upper extremities,very weak on both lower ecxtremities but able to move.New PICC line QUINTEN .Comfort care done,needs attended.Old G tube site on left lower abdomen draining cream colored drainage.Suctioned via trache,obtained thick bloodtinged ,secretions. 2100 PM bath done,sacral decub care done. 2200 Finger stick=92 mg/dl, held Lantus dose for tonight ( patient has no feeding ). Addendum: 06/13/17 at 0546 by COLLIN BINGHAM RN Above note in error,wrong patient.
--- NOTE | 2017-06-12 19:00 | NUR ---
VIOLIN MAKER HAND NOTES Received patient asleep,but easily awakens,responds to name calling.On O2 via simole face mask @ 8 liters,O2 sat ,92-96%.Not in acute distress,breathing regular,non labored.Feeding via GT with residual=10 ml. IV access Midline RADHA.Comfort care done,needs attended.
--- NOTE | 2017-06-12 19:10 | NUR ---
RN CLOSING NOTES PT RESTING IN BED; ON 8 L /MIN O2 INH VIA MASK. RESTRAINTS RELEASED AND ROM DONE AT INTERVALS; SKIN AND CIRCULATION WNL. SUCTIONED NEEDED. GT FEEDING TOLERATED WELL; HOB KEPT ELEVATED AND ASPIRATION PRECAUTION OBSERVED AT ALL TIMES. TURNED AND REPOSITION. IVF INFUSING WELL. ON SINUS RHYTHM . ENDORSED TO NEXT SHIFT RN FOR CONTINUITY OF CARE IN STABLE CONDITION
--- NOTE | 2017-06-12 22:00 | NUR ---
sap portal developer NOTES 2200 Remains stable,desaturates on and off to 88-89%.Suctioned orally and nasally,obtained some bloody secretions .Repoistioned,PM care done.
[2017-06-13] VITALS (25 sets, daily range): BP systolic 98–130; BP diastolic 33–66
--- NOTE | 2017-06-13 | NUR ---
HOSPITALITY HOUSE SUPERVISOR nOTES Status unchanged,seems more responsive,still desaturates on and off,although no signs of respiratory distress.Frequent suvtioning done,maintained on high balbuena's position.Aspiration precaution observed.
[2017-06-13] MEDS: PIPERACILLIN /TAZOBACTAM 2.25 G in IV D5W 50 ML IV SCH ×5 (01:21→23:05)
[2017-06-13] MEDS: IPRATROPIUM NEB FS 0.5 MG/2.5 ML AMPUL.NEB NEB SCH ×5 (01:30→19:09)
[2017-06-13] MEDS: METOCLOPRAMIDE HCL 10 MG/2 ML VIAL IV SCH ×4 (03:12→20:26)
[2017-06-13] MEDS: ALBUTEROL FS 2.5 MG/0.5 ML VIAL.NEB NEB SCH ×5 (03:58→19:09)
--- NOTE | 2017-06-13 04:00 | NUR ---
BOBBIN DRIER NOTES AM care done,sacral decub care done.Feeding residual = 80 ml.Stable,awake,alert ,not in distress saturating 90-95% ,titrated O2 as needed..Pulmonary toileting done.
[2017-06-13] MEDS: FIBERSOURCE HN 1,000 ML BOTTLE GT PRN (05:29)
[2017-06-13 06:16] LABS: BASOPHILS % (AUTO) 0.1 % (0.0-2.0); EOSINOPHILS # (AUTO) 2.5 /CMM (0.0-0.7); HEMATOCRIT 23 % (39-51); HEMOGLOBIN 7.8 g/dL (13.5-17.5); LYMPHOCYTES # (AUTO) 0.4 /CMM (0.8-4.8); LYMPHOCYTES % (AUTO) 6.4 % (20.0-44.0); MEAN CORPUSCULAR HEMOGLOBIN 30 PG (26.0-33.0); MEAN CORPUSCULAR HGB CONC 33 g/dl (31.0-36.0); MEAN CORPUSCULAR VOLUME 90 fL (80-96); MONOCYTES # (AUTO) 0.6 /CMM (0.1-1.30); MONOCYTES % (AUTO) 9.6 % (2.0-12.0); NEUTROPHILS # (AUTO) 2.5 /CMM (1.8-8.9); NEUTROPHILS % (AUTO) 41.9 % (43.0-81.0); PLATELET COUNT (AUTO) 121 /CMM (150-450); RDW COEFFICIENT OF VARIATION 16.7 (11.5-15.0); RED BLOOD CELL COUNT(AUTO) 2.59 MIL/uL (4.5-6.0); WHITE BLOOD COUNT (AUTO) 6.1 K/uL (4.3-11.0)
[2017-06-13 06:30] LABS: CARBON DIOXIDE 21 mmol/L (21-32); CHLORIDE 108 mmol/L (98-107); CREATININE 1.7 mg/dL (0.6-1.3); GLUCOSE 103 mg/dL (74-106); MAGNESIUM 1.5 mg/dL (1.8-2.4); POTASSIUM 3.8 mmol/L (3.5-5.1); SODIUM SERUM 138 mmol/L (136-145); UREA NITROGEN, BLOOD 28 mg/dL (7-18)
[2017-06-13 06:41] LABS: ALBUMIN 1.2 g/dL (3.4-5.0)
[2017-06-13] MEDS: ACETYLCYSTEINE 10% SOLN 400 MG/4 ML VIAL NEB SCH ×3 (07:21→23:30)
--- NOTE | 2017-06-13 08:00 | NUR ---
PHILOSOPHY SPECIALIST NOTE PATIENT IN BED , ALL NEEDS ATTENDED , ON TELE MONITOR SR 67 , WITH G TUBE FEEDING FIBERSOURCE AT 60 ML PER HOUR KEEP HOB ELEVATED ,WILL MONITOR FOR RESIDUAL ,LT UPPER ARM MID LINE IN PLACE, NO S]S INFECTION NOTED , BED ON LOWEST AND LOCKED POSITION , ON FACE MASK 8L ,SAT 94% ON IVF ORDERED ,WITH SAMANO CATH TO GRAVITY WITH YELLOW COLOR URINE , CONT SOFT RESTRAIN , PATIENT AT RISK TO REMOVE ALL LINES ,WILL CONT TO MONITOR CLOSELY
[2017-06-13] MEDS: LEVETIRACETAM (250 MG) 250 MG TABLET PO SCH ×2 (08:46→20:25)
[2017-06-13] MEDS: FERROUS SULFATE (325 MG) 325 MG/TAB TABLET PO SCH (08:46)
[2017-06-13] MEDS: COLCHICINE 0.6 MG TABLET PO SCH (08:47)
[2017-06-13] MEDS: ASCORBIC ACID 500 MG TABLET PO SCH (08:47)
[2017-06-13] MEDS: ZINC SULFATE 220 MG CAPSULE PO SCH (08:47)
[2017-06-13] MEDS: MULTIVITAMINS,THERAGRAN 1 UDTAB TABLET PO SCH (08:47)
[2017-06-13] MEDS: PANTOPRAZOLE 40 MG/PACK PACK GT SCH ×2 (08:47→20:26)
[2017-06-13] MEDS: FLUCONAZOLE (100 MG) 100 MG TABLET PO SCH (08:47)
[2017-06-13] MEDS: DOCUSATE SODIUM 100 MG CAPSULE PO SCH ×2 (08:47→16:14)
[2017-06-13] MEDS: AMLODIPINE BESYLATE 10 MG TABLET PO SCH (08:48)
[2017-06-13] MEDS: MUPIROCIN OINT 2% 22 GM TUBE SCH ×2 (08:50→20:31)
[2017-06-13] MEDS: LEVOTHYROXINE SODIUM 75 MCG TABLET PO SCH (08:55)
--- NOTE | 2017-06-13 09:39 | NUR ---
BREAD PAN GREASER NOTER RT AT BEDSIDE OROPHARYNGEAL SUCTION DONE WITH MOD AMT PICK TINGED SECRETION AND YELLOW COLOR NOTED , REPOSITION DONE, KEEP CLEAN DRY , DR THORNE AT BEDSIDE NOTIFIED THAT PATIENT ON IVF 1/2NS AT 100 ML PER HOUR, AWARE THAT G TUBE RESIDUAL 12O ML AT THIS TIME ,WILL MONITOR CLOSELY, MOUTH CARE DONE Addendum: 06/13/17 at 1732 by YAZMIN HOBBS RN CORRECTION IVF AT 75 ML PER HOUR
[2017-06-13 09:49] LABS: EOSINOPHILS % (MANUAL) 36 % (0-4); LYMPHOCYTES % (MANUAL) 1 % (16-48); MONOCYTES % (MANUAL) 7 % (0-11.0); NEUTROPHILS % (MANUAL) 56 (42-76)
[2017-06-13] MEDS ORDERED: Calcium Gluconate 1GM/10ML 9.3 MEQ in IV D5W 250 ML IV ONE (10:00)
[2017-06-13] MEDS: Magnesium 1GM/D5W 100ML PREMIX 100 ML IV SCH ×2 (10:08→12:42)
[2017-06-13] MEDS ORDERED: Magnesium 1GM/D5W 100ML PREMIX 100 ML IV SCH (10:30)
--- NOTE | 2017-06-13 11:34 | NUR ---
IVU RN NOTE DR TRIVEDI BOTANY TEACHER AT BESIDE ,SPOKE WITH FAMILY , ALSO DR NOTIFIED THAT PATIENT NOW ON 8L OF O2 BY SIMPLE MASK ,SAT 92-91% STATED WILL CONT TO MONITOR CLOSELY
--- NOTE | 2017-06-13 12:01 | NUR ---
CAN REFORMING MACHINE OPERATOR NOTE ON BREATHING TX BY RT ALL NEEDS ATTENDED, FAMILY AT BESIDE
[2017-06-13] MEDS: IV 1/2NS 1000 ML 1,000 ML IV PRN (13:38)
--- NOTE | 2017-06-13 15:39 | NUR ---
CLICKER OPERATOR NOTE PER DAUGHTER REQUEST , CHANGED SOFT RESTRAIN TO MITTENS , PATIENT STILL TRYING TO REMOVE ALL LINES AND FACE MASK , WILL CONT TO MONITOR CLOSELY, TRYING TO WEAN FROM RESTRAIN BUT PATIENT STILL TRYING TO REMOVE ALL LINES
[2017-06-13] MEDS: MICAFUNGIN SODIUM 100 MG in IV NS 0.9% 100 ML IV SCH (15:53)
--- NOTE | 2017-06-13 18:03 | NUR ---
NETSUITE CONSULTANT NOTE IGLESIA SOFTWARE ENGINEER DEVELOPER FOR DR HARTMANN GI DOCTOR SEEN PATIENT NOTIFIED THAT EARLIER RESIDUAL FROM G TUBE WAS 120ML AND LATEST 20 ML AND AWARE THAT HG TODAY 7.8
--- NOTE | 2017-06-13 18:48 | NUR ---
ADJUNCT INSTRUCTOR CHEMISTRY NOTE PATIENT IN BED , ALL NEEDS ATTENDED ,RESTING COMFORTABLY IN BED ,STILL WITH SIMPLE MASK WITH 8L OF O2, SAT 93% , KEEP HOB ELEVATED AT ALL TIME ,NOTED RESIDUAL 20 ML ,CONT ON G TUBE FEEDING ORDERED , WILL CONT TO MONITOR CLOSELY
--- NOTE | 2017-06-13 19:30 | NUR ---
RN INITIAL NOTES RECEIVED PATIENT IN BED, AWAKE, ALERT AND ORIENTED X1 TO SELF, MONTSERRATIAN SPEAKING. BREATHING IS EVEN AND NONLABORED, CURRENTLY RECEIVING BREATHING TREATMENT BY RT, OTHERWISE ON O2 VIA SIMPLE MASK @ 8LPM, TOLERATING WELL, FREE FROM ANY S/S OF RESPIRATORY DISTRESS AT THIS TIME. GT PATENT AND INTACT, FLUSHED WITH 30ML WATER. NOTED WITH APPROXIMATELY 20 ML OF STRAW COLORED GASTRIC RESIDUALS. BILATERAL MITTENS IN PLACE, REMOVED TO ASSESS FOR CIRCULATION, REAPPLIED. CALL LIGHT LEFT WITHIN EASY REACH, BED IN LOWEST AND LOCKED POSITION. WILL CONTINUE TO CLOSELY MONITOR.
[2017-06-14] VITALS (25 sets, daily range): BP systolic 97–140; BP diastolic 49–76
[2017-06-14] MEDS: ALBUTEROL FS 2.5 MG/0.5 ML VIAL.NEB NEB SCH ×7 (00:11→23:36)
[2017-06-14] MEDS: IPRATROPIUM NEB FS 0.5 MG/2.5 ML AMPUL.NEB NEB SCH ×4 (01:27→19:40)
[2017-06-14] MEDS: METOCLOPRAMIDE HCL 10 MG/2 ML VIAL IV SCH ×4 (02:00→20:47)
--- NOTE | 2017-06-14 04:00 | NUR ---
RN NOTES FULL BED BATH RENDERED, WOUND CARE PERFORMED PRESCRIBED, SKIN ISSUES PHOTOGRAPHED AND DOCUMENTED PER PROTOCOL, PATIENT TOLERATED PROCEDURE WELL. DEEP NASOTRACHEAL SUCTION PERFORMED, WITH MODERATE AMOUNT OF PINK TINGED OUTPUT
[2017-06-14 05:23] LABS: CALCIUM, SERUM 7.8 mg/dL (8.5-10.1); CARBON DIOXIDE 22 mmol/L (21-32); CHLORIDE 107 mmol/L (98-107); CREATININE 1.6 mg/dL (0.6-1.3); GLUCOSE 78 mg/dL (74-106); POTASSIUM 4.1 mmol/L (3.5-5.1); SODIUM SERUM 138 mmol/L (136-145); UREA NITROGEN, BLOOD 28 mg/dL (7-18)
[2017-06-14 05:24] LABS: CALCIUM, SERUM 7.4 mg/dL (8.5-10.1); MAGNESIUM 1.9 mg/dL (1.8-2.4)
[2017-06-14] MEDS: PIPERACILLIN /TAZOBACTAM 2.25 G in IV D5W 50 ML IV SCH ×3 (06:02→17:38)
[2017-06-14] MEDS: FIBERSOURCE HN 1,000 ML BOTTLE GT PRN (06:06)
[2017-06-14] MEDS: IV 1/2NS 1000 ML 1,000 ML IV PRN (06:06)
[2017-06-14] MEDS: ACETYLCYSTEINE 10% SOLN 400 MG/4 ML VIAL NEB SCH ×3 (06:57→23:30)
--- NOTE | 2017-06-14 07:00 | NUR ---
RN CLOSING NOTES PATIENT RESTING IN BED, APPEARS COMFORTABLE, NO ACUTE CHANGES THROUGHOUT SHIFT. WILL ENDORSE THE PATIENT TO THE AM SHIFT NURSE FOR BRYN
--- NOTE | 2017-06-14 07:30 | NUR ---
RN NOTES RECEIVED PATIENT IN BED ASLEEP WITH BREATHING NORMAL, EVEN AND UNLABORED. NO SOB NOTED. NO ACUTE DISTRESS NOTED. ON 8L O2 VIA MASK. SATURATING WELL. TELE MONITOR REVEALS SR, HR=80. RADHA MIDLINE IS PATENT AND INTACT, RUNNING IVF PER ORDER. ON GT FEED, FIBERSOURCE @60CC/HR, TOLERATED WELL. POSITIVE PLACEMENT. HOB ELEVATED. ASPIRATION PRECAUTION TAKEN. F/C IS PATENT AND INTACT, DRAINING WITH GRAVITY. KEPT CLEAN, DRY AND COMFORTABLE. ALL NEEDS ATTENDED. SAFETY MEASURE OBSERVED. CALL LIGHT WITH IN REACH. WILL CONT TO MONITOR.
[2017-06-14] MEDS ORDERED: VANCOMYCIN 0.75 GM in IV D5W 250 ML IV SCH (08:00)
[2017-06-14] MEDS: LEVOTHYROXINE SODIUM 75 MCG TABLET PO SCH (08:27)
[2017-06-14] MEDS: AMLODIPINE BESYLATE 10 MG TABLET PO SCH (08:34)
[2017-06-14] MEDS: COLCHICINE 0.6 MG TABLET PO SCH (08:34)
[2017-06-14] MEDS: ZINC SULFATE 220 MG CAPSULE PO SCH (08:34)
[2017-06-14] MEDS: MULTIVITAMINS,THERAGRAN 1 UDTAB TABLET PO SCH (08:34)
[2017-06-14] MEDS: LEVETIRACETAM (250 MG) 250 MG TABLET PO SCH ×2 (08:34→20:47)
[2017-06-14] MEDS: ASCORBIC ACID 500 MG TABLET PO SCH (08:34)
[2017-06-14] MEDS: PANTOPRAZOLE 40 MG/PACK PACK GT SCH ×2 (08:35→20:47)
[2017-06-14] MEDS: MUPIROCIN OINT 2% 22 GM TUBE SCH ×2 (08:58→20:48)
[2017-06-14] MEDS: FERROUS SULFATE (325 MG) 325 MG/TAB TABLET PO SCH (08:58)
[2017-06-14] MEDS: DOCUSATE SODIUM LIQ 100 MG/10 ML UDC GT SCH ×2 (09:39→17:38)
[2017-06-14] MEDS ORDERED: Calcium Gluconate 1GM/10ML 9.3 MEQ in IV D5W 250 ML IV ONE (11:00)
[2017-06-14] MEDS: MICAFUNGIN SODIUM 100 MG in IV NS 0.9% 100 ML IV SCH (17:38)
--- NOTE | 2017-06-14 18:36 | NUR ---
RN NOTES PATIENT ENDORSED TO NEXT SHIFT IN STABLE
--- NOTE | 2017-06-14 18:50 | NUR ---
RN NOTES PATIENT ENDORSED TO NEXT SHIFT IN STABLE CONDITION WITH BREATHING NORMAL, EVEN AND UNLABORED. NO SOB NOTED. NO ACUTE DISTRESS NOTED. KEPT CLEAN, DRY AND COMFORTABLE. ALL NEEDS ATTENDED. SAFETY MEASURE OBSERVED. CALL LIGHT WITH IN REACH. WILL CONT TO MONITOR.
--- NOTE | 2017-06-14 20:00 | NUR ---
PIZZA HUT TEAM MEMBER NOTE PT IN BED LETHARGIC. NO DISTRESS OR DISCOMFORT NOTED. NO S/S OF PAIN NOTED. ON TELE SR WITH 1ST DEGREE OF AV BLOCK HR 72. F/C INTACT AND PATENT DRAINING YELLOWISH COLOR URINE. GTF FIBERSOURCE 60 ML/HR INFUSING WELL, 20 ML RESIDUAL NOTED. QUINTEN WITH MID LINE INTACT AND PATENT INFUSING 1/2 NS @75 ML/HR, NO S/S OF INFILTRATION NOTED. KEPT HOB ELEVATED. BILATERAL HAND MITTENS ON. REPOSITION HIM Q2H, KEPT HIM DRY AND CLEAN. SIDE RAILS UP X 3 AND CALL LIGHT WITHIN REACH. VSS. CONTINUE TO MONITOR. Addendum: 06/14/17 at 2133 by FANNY TRAN RN PT ON SIMPLE MASK O2 10 L, O2 SAT 94%.
[2017-06-14] MEDS: LEVOFLOXACIN (250MG) 250 MG TABLET PO SCH (20:47)
[2017-06-15] VITALS (24 sets, daily range): BP systolic 96–126; BP diastolic 49–69
[2017-06-15] MEDS: FIBERSOURCE HN 1,000 ML BOTTLE GT PRN (00:55)
[2017-06-15] MEDS: IV 1/2NS 1000 ML 1,000 ML IV PRN ×2 (00:56→15:28)
[2017-06-15] MEDS: IPRATROPIUM NEB FS 0.5 MG/2.5 ML AMPUL.NEB NEB SCH ×4 (01:30→20:10)
[2017-06-15] MEDS ORDERED: LORAZEPAM INJ 2 MG/ML VIAL IV PRN (03:30)
[2017-06-15] MEDS: METOCLOPRAMIDE HCL 10 MG/2 ML VIAL IV SCH ×5 (03:39→21:03)
--- NOTE | 2017-06-15 04:00 | NUR ---
HISTOLOGY MANAGER NOTE BED BATH GIVEN. ALSO WOUND TX GIVEN ORDERED. PT TOLERATED WELL. BM X 1.
[2017-06-15] MEDS: ALBUTEROL FS 2.5 MG/0.5 ML VIAL.NEB NEB SCH ×4 (04:03→20:10)
[2017-06-15 04:57] LABS: EOSINOPHILS # (AUTO) 2.4 /CMM (0.0-0.7); HEMATOCRIT 25 % (39-51); HEMOGLOBIN 8.5 g/dL (13.5-17.5); LYMPHOCYTES # (AUTO) 0.5 /CMM (0.8-4.8); MEAN CORPUSCULAR HEMOGLOBIN 33 PG (26.0-33.0); MEAN CORPUSCULAR HGB CONC 34 g/dl (31.0-36.0); MEAN CORPUSCULAR VOLUME 96 fL (80-96); MONOCYTES # (AUTO) 0.6 /CMM (0.1-1.30); MONOCYTES % (AUTO) 10.3 % (2.0-12.0); NEUTROPHILS # (AUTO) 2.6 /CMM (1.8-8.9); NEUTROPHILS % (AUTO) 42.7 % (43.0-81.0); PLATELET COUNT (AUTO) 118 /CMM (150-450); RDW COEFFICIENT OF VARIATION 17.6 (11.5-15.0); RED BLOOD CELL COUNT(AUTO) 2.59 MIL/uL (4.5-6.0); WHITE BLOOD COUNT (AUTO) 6.1 K/uL (4.3-11.0)
[2017-06-15 05:15] LABS: CALCIUM, SERUM 7.7 mg/dL (8.5-10.1); CARBON DIOXIDE 23 mmol/L (21-32); CHLORIDE 105 mmol/L (98-107); CREATININE 1.5 mg/dL (0.6-1.3); GLUCOSE 83 mg/dL (74-106); POTASSIUM 4.3 mmol/L (3.5-5.1); SODIUM SERUM 137 mmol/L (136-145); UREA NITROGEN, BLOOD 27 mg/dL (7-18)
[2017-06-15 05:34] LABS: EOSINOPHILS % (MANUAL) 28 % (0-4); LYMPHOCYTES % (MANUAL) 8 % (16-48); MONOCYTES % (MANUAL) 9 % (0-11.0); NEUTROPHILS % (MANUAL) 55 (42-76)
--- NOTE | 2017-06-15 06:43 | NUR ---
CHILD AND YOUTH PROGRAM ASSISTANT NOTE PT IN BED ASLEEP, AROUSABLE. NO DISTRESS OR DISCOMFORT NOTED. NO S/S OF PAIN NOTED. GT INTACT AND PATENT INFUSING FIBERSOURCE AT 60 ML/HR, 25 ML RESIDUAL NOTED. KEPT HOB ELEVATED. ON TELE SR WITH 1ST DEGREE AV BLOCK HR 68. F/C INTACT AND PATENT DRAINING YELLOWISH COLOR URINE. KEPT HIM DRY AND CLEAN. ALL NEEDS ATTENDED. SIDE RAILS UP X 3 AND CALL LIGHT WITHIN REACH. WILL ENDORSE TO DAY SHIFT NURSE FOR CONTINUE TO CARE.
[2017-06-15] MEDS: ACETYLCYSTEINE 10% SOLN 400 MG/4 ML VIAL NEB SCH ×3 (07:10→23:30)
--- NOTE | 2017-06-15 08:00 | NUR ---
ICU/RN INITIAL NOTES,AM RECEIVED REPORT FROM NIGHT NURSE. PT LETHARGIC, OPENS EYES, DOES NOT FOLLOW SIMPLE COMMANDS. PT ON SIMPLE MASK, TOLERATING WELL, NO ACUTE DISTRESS NOTED. PT ON TELE, SINUS RHYTHM WITH FIRST DEGREE AV BLOCK. PT NOTED TO BE SLIGHTLY HYPOTHERMIC, BEAR HUGGER INITIATED PER MD. SAMANO CATH IN PLACE, DRAINING YELLOW URINE. TUBE FEEDING INFUSING AT ORDERED VIA GTUBE. WILL CONTINUE TO MONITOR RESIDUAL. PT TURNED AND REPOSITIONED. ALL NEEDS WILL BE MET, SAFETY MEASURES TAKEN, BED IN LOW POSITION, SIDE RAILS UP, CALL LIGHT WITHIN REACH WILL CONTINUE CARE.
[2017-06-15] MEDS: LEVETIRACETAM (250 MG) 250 MG TABLET PO SCH ×2 (08:28→20:09)
[2017-06-15] MEDS: LEVOTHYROXINE SODIUM 75 MCG TABLET PO SCH (08:28)
[2017-06-15] MEDS: ZINC SULFATE 220 MG CAPSULE PO SCH (08:28)
[2017-06-15] MEDS: COLCHICINE 0.6 MG TABLET PO SCH (08:28)
[2017-06-15] MEDS: PANTOPRAZOLE 40 MG/PACK PACK GT SCH ×2 (08:28→20:10)
[2017-06-15] MEDS: MULTIVITAMINS,THERAGRAN 1 UDTAB TABLET PO SCH (08:28)
[2017-06-15] MEDS: DOCUSATE SODIUM LIQ 100 MG/10 ML UDC GT SCH ×2 (08:28→17:00)
[2017-06-15] MEDS: FERROUS SULFATE (325 MG) 325 MG/TAB TABLET PO SCH (08:28)
[2017-06-15] MEDS: ASCORBIC ACID 500 MG TABLET PO SCH (08:29)
[2017-06-15] MEDS: AMLODIPINE BESYLATE 10 MG TABLET PO SCH (08:29)
[2017-06-15] MEDS: MUPIROCIN OINT 2% 22 GM TUBE SCH ×2 (08:30→20:23)
--- NOTE | 2017-06-15 09:00 | NUR ---
ICU/RN: JORGE HELD DUE TO SHORTAGE. NOTIFIED
[2017-06-15 10:44] LABS: ABG BASE EXCESS -2.8 mmol/L; ABG PCO2 36.8 mmHg (35.0-45.0); ABG PO2 54.8 mmHg (75.0-100.0); AaDO2 260.3 mmHg; COHb 0.3 % (0.5-1.5); MetHb 0.7 % (0.0-1.5); O2Hb 86.1 % (94.0-97.0); SITE, ABG Right Radial; VENT MODE, BG SIMPLE MASK
--- NOTE | 2017-06-15 11:00 | NUR ---
ICU/RN: PER MD, ABG DONE, PT PLACED ON 15 LITERS NON REBREATHER MASK, WILL CONTINUE TO MONITOR
--- NOTE | 2017-06-15 19:25 | NUR ---
ICU/RN ENDING NOTES,AM REPORT ENDORSED TO NIGHT NURSE FOR BRYN. ALL NEEDS MET, SAFETY MEASURE TAKEN. ON 15LITERS NRB MASK. SINUS ON TELE. SAMANO IN PLACE, DRAINING YELLOW URINE. BED IN LOW POSITION, SIDE RAILS UP, CALL LIGHT WITHIN REACH,WILL CONTINUE CARE
[2017-06-15] MEDS: LEVOFLOXACIN (250MG) 250 MG TABLET PO SCH (20:10)
--- NOTE | 2017-06-15 20:53 | NUR ---
received pt from day shift, lethargic, does not follow commands, SR, on non rebreather at 15L, sat well, lungs congested, pitting edema all extremities, GT to feeding tolerates well, f/c good output, diaper on, v/s stable, no pain, pt turned and repositioned.
[2017-06-16] VITALS (28 sets, daily range): BP systolic 105–136; BP diastolic 35–76
--- NOTE | 2017-06-16 00:23 | NUR ---
pt is resting in the bed, v/s stable, no pain, deep suctioning done, sat well, tolerates feeding, pt turned and repositioned q2hrs.
[2017-06-16] MEDS: ALBUTEROL FS 2.5 MG/0.5 ML VIAL.NEB NEB SCH ×4 (01:50→19:34)
[2017-06-16] MEDS: IPRATROPIUM NEB FS 0.5 MG/2.5 ML AMPUL.NEB NEB SCH ×4 (01:50→19:34)
[2017-06-16] MEDS: METOCLOPRAMIDE HCL 10 MG/2 ML VIAL IV SCH ×4 (02:25→20:13)
[2017-06-16] MEDS: FIBERSOURCE HN 1,000 ML BOTTLE GT PRN (03:11)
[2017-06-16] MEDS: IV 1/2NS 1000 ML 1,000 ML IV PRN ×2 (03:12→16:28)
--- NOTE | 2017-06-16 04:33 | NUR ---
pt is resting in the bed, no acute distress overnight, alert, does not follow commands, on non rebreather at 15L, sat well, tolerates feeding, good urine output, v/s stable, no pain, pt cleaned, changed and repositioned q2hrs.
[2017-06-16 05:13] LABS: CALCIUM, SERUM 7.6 mg/dL (8.5-10.1); CARBON DIOXIDE 24 mmol/L (21-32); CHLORIDE 104 mmol/L (98-107); CREATININE 1.5 mg/dL (0.6-1.3); GLUCOSE 77 mg/dL (74-106); POTASSIUM 4.7 mmol/L (3.5-5.1); SODIUM SERUM 136 mmol/L (136-145); UREA NITROGEN, BLOOD 27 mg/dL (7-18)
[2017-06-16] MEDS: ACETYLCYSTEINE 10% SOLN 400 MG/4 ML VIAL NEB SCH ×3 (07:31→23:28)
--- NOTE | 2017-06-16 08:00 | NUR ---
ICU/RN INITIAL NOTES,AM RECEIVED REPORT FROM NIGHT NURSE. PT LETHARGIC, OPENS EYES, DOES NOT FOLLOW SIMPLE COMMANDS. PT ON NON REBREATHER MASK, 15 LITERS. NO ACUTE DISTRESS NOTED. PT ON TELE, SINUS RHYTHM WITH FIRST DEGREE AV BLOCK. SAMANO CATH IN PLACE, DRAINING YELLOW URINE. TUBE FEEDING INFUSING AT ORDERED VIA GTUBE. WILL CONTINUE TO MONITOR RESIDUAL. PT TURNED AND REPOSITIONED. ALL NEEDS WILL BE MET, SAFETY MEASURES TAKEN, BED IN LOW POSITION, SIDE RAILS UP, CALL LIGHT WITHIN REACH WILL CONTINUE CARE.
[2017-06-16] MEDS: DOCUSATE SODIUM LIQ 100 MG/10 ML UDC GT SCH ×2 (09:00→16:18)
[2017-06-16] MEDS: MUPIROCIN OINT 2% 22 GM TUBE SCH ×2 (09:11→20:14)
[2017-06-16] MEDS: MULTIVITAMINS,THERAGRAN 1 UDTAB TABLET PO SCH (09:22)
[2017-06-16] MEDS: LEVETIRACETAM (250 MG) 250 MG TABLET PO SCH ×2 (09:22→20:13)
[2017-06-16] MEDS: PANTOPRAZOLE 40 MG/PACK PACK GT SCH ×2 (09:22→20:13)
[2017-06-16] MEDS: ASCORBIC ACID 500 MG TABLET PO SCH (09:22)
[2017-06-16] MEDS: FERROUS SULFATE (325 MG) 325 MG/TAB TABLET PO SCH (09:22)
[2017-06-16] MEDS: LEVOTHYROXINE SODIUM 75 MCG TABLET PO SCH (09:22)
[2017-06-16] MEDS: COLCHICINE 0.6 MG TABLET PO SCH (09:22)
[2017-06-16] MEDS: ZINC SULFATE 220 MG CAPSULE PO SCH (09:26)
[2017-06-16] MEDS: AMLODIPINE BESYLATE 10 MG TABLET PO SCH (09:27)
--- NOTE | 2017-06-16 10:30 | NUR ---
ICU/RN: MD ROUNDS PT SEEN AND ASSESSED BY WARDROBE ATTENDANT, ABG DONE, PT CONTINUES TO STAY ON NON REBREATHER MASK. WILL CONTINUE TO MONITOR AND ASSESS.
[2017-06-16 14:28] LABS: ABG BASE EXCESS 0.1 mmol/L; ABG OXYGEN SATURATION 91.4 % (92.0-98.5); ABG PCO2 39.3 mmHg (35.0-45.0); ABG PH 7.414 (7.350-7.450); AaDO2 609.7 mmHg; COHb 0.3 % (0.5-1.5); MetHb 1.1 % (0.0-1.5); O2Hb 90.1 % (94.0-97.0); SITE, ABG Right Radial; VENT MODE, BG NON REBREATHER
[2017-06-16] MEDS: FUROSEMIDE 40 MG/4 ML VIAL IV SCH (15:24)
[2017-06-16] MEDS: LEVOFLOXACIN (250MG) 250 MG TABLET PO SCH (20:13)
--- NOTE | 2017-06-16 20:39 | NUR ---
received pt from day shift, lethargic, does not follow commands, SR, on non rebreather at 15L, lungs congested, pitting edema all extremities, GT to feeding tolerates well, f/c good output, mittens on, v/s stable, no pain, pt turned and repositioned.
[2017-06-17] VITALS (61 sets, daily range): BP systolic 84–135; BP diastolic 42–74
--- NOTE | 2017-06-17 00:21 | NUR ---
pt is resting in the bed, v/s stable, no pain, pt turned and repositioned q2hrs.
[2017-06-17] MEDS: IPRATROPIUM NEB FS 0.5 MG/2.5 ML AMPUL.NEB NEB SCH ×4 (01:51→19:38)
[2017-06-17] MEDS: ALBUTEROL FS 2.5 MG/0.5 ML VIAL.NEB NEB SCH ×4 (01:51→19:38)
[2017-06-17] MEDS: METOCLOPRAMIDE HCL 10 MG/2 ML VIAL IV SCH ×5 (04:08→23:24)
--- NOTE | 2017-06-17 04:26 | NUR ---
pt is resting in the bed, no acute distress overnight, SR, on non rebreather, sat well, tolerates feeding, good urine output, v/s stable, no pain, pt cleaned, changed and repositioned q2hrs.
[2017-06-17] MEDS: IV 1/2NS 1000 ML 1,000 ML IV PRN ×2 (04:34→18:02)
[2017-06-17 05:26] LABS: CALCIUM, SERUM 7.4 mg/dL (8.5-10.1); CARBON DIOXIDE 26 mmol/L (21-32); CHLORIDE 102 mmol/L (98-107); CREATININE 1.6 mg/dL (0.6-1.3); GLUCOSE 78 mg/dL (74-106); POTASSIUM 4.5 mmol/L (3.5-5.1); SODIUM SERUM 135 mmol/L (136-145); UREA NITROGEN, BLOOD 29 mg/dL (7-18)
[2017-06-17] MEDS: ACETYLCYSTEINE 10% SOLN 400 MG/4 ML VIAL NEB SCH ×3 (07:35→23:30)
--- NOTE | 2017-06-17 08:00 | NUR ---
MANAGER MSW: pt.is obtunded, can open eyes by touch, no eyes contact, spont.arms weak activity, on B.mittens, SR, SBP 112-126 over night, on NRBM 100% 15L flow during days, O2 sat. 93-96%, pO2 54-64%, spoke with RT/going to give resp.Tx, nasopharyngeal suction
[2017-06-17] MEDS: LEVOTHYROXINE SODIUM 75 MCG TABLET PO SCH (08:24)
[2017-06-17] MEDS: ASCORBIC ACID 500 MG TABLET PO SCH (08:49)
[2017-06-17] MEDS: PANTOPRAZOLE 40 MG/PACK PACK GT SCH ×2 (08:49→20:18)
[2017-06-17] MEDS: LEVETIRACETAM (250 MG) 250 MG TABLET PO SCH ×2 (08:49→20:18)
[2017-06-17] MEDS: COLCHICINE 0.6 MG TABLET PO SCH (08:49)
[2017-06-17] MEDS: DOCUSATE SODIUM LIQ 100 MG/10 ML UDC GT SCH ×2 (08:49→17:28)
[2017-06-17] MEDS: FERROUS SULFATE (325 MG) 325 MG/TAB TABLET PO SCH (08:49)
[2017-06-17] MEDS: ZINC SULFATE 220 MG CAPSULE PO SCH (08:49)
[2017-06-17] MEDS: FUROSEMIDE 40 MG/4 ML VIAL IV SCH (08:50)
[2017-06-17] MEDS: AMLODIPINE BESYLATE 10 MG TABLET PO SCH (08:50)
[2017-06-17] MEDS: MULTIVITAMINS,THERAGRAN 1 UDTAB TABLET PO SCH (08:50)
[2017-06-17] MEDS: MUPIROCIN OINT 2% 22 GM TUBE SCH ×2 (08:53→20:19)
--- NOTE | 2017-06-17 10:00 | NUR ---
GLASS TUBE BENDER: pt.was nasopharyngeal suctioned with large yellowish thick secretion, getting resp.Tx, O2 sat. 87-90% now, is in room, updated with all above, last ABGs, pt.is on NRBM for last couple days per night nurse report, neurostatus, VS, I/O, GTF, ordered: intubate pt.
--- NOTE | 2017-06-17 10:05 | NUR ---
AUTOMATIC DIE CUTTING MACHINE OPERATOR: notified pharmacy: no Reglan is in pyxis
--- NOTE | 2017-06-17 10:15 | NUR ---
CHIEF ENGINEER DRILLING AND RECOVERY: spoke with pt.daughter Malika for code status confirmation and pt. Luxembourgish translation by Malika, they confirmed with charge nurse verification: status - DNR, Ok for intubation, ER MD was paged
--- NOTE | 2017-06-17 10:40 | NUR ---
TAX AUDITOR: pt.is on NRBM 15L now, O2 sat. 98-100%, RR WNL, SR, SBP over 100, pt.room is prepared for intubation, ER MD is in unit/notified re pt.history, current condition, ABGs, VS, labs, status, evaluated pt., charge nurse, RT are in room, but MD was called back to ER for emergency STAT. Intubation waiting.
--- NOTE | 2017-06-17 11:20 | NUR ---
RN ENT: pt.is intubated by ER , O2sat. 98-100%, SR, BP WNL, Diprivan gtt order placed in
[2017-06-17] MEDS: PROPOFOL 100 ML IV PRN (11:51)
[2017-06-17] MEDS ORDERED: ETOMIDATE 2 MG/ML VIAL IV ONE (14:47)
[2017-06-17] MEDS ORDERED: SUCCINYLCHOLINE CHLORIDE 20 MG/ML VIAL IV ONE (14:47)
[2017-06-17 14:54] LABS: ABG BASE EXCESS 0.5 mmol/L; ABG OXYGEN SATURATION 98.6 % (92.0-98.5); ABG PCO2 42.5 mmHg (35.0-45.0); ABG PH 7.396 (7.350-7.450); ABG PO2 193.4 mmHg (75.0-100.0); AaDO2 477.1 mmHg; COHb 0.3 % (0.5-1.5); MetHb 0.6 % (0.0-1.5); O2Hb 97.7 % (94.0-97.0); PEEP,BG 5 cm H2O; SITE, ABG Right Radial; VT, ABG 450 mL
--- NOTE | 2017-06-17 15:00 | NUR ---
CONTRACT WRITER: pt.is sedated well, rest, reactive by pain, ST, O2 sat. 98-100%, SBP over 90, Reglan 5mg IV was given at 13.00, before pyxis was empty
--- NOTE | 2017-06-17 16:53 | NUR ---
PT ORALLY INTUBATED BY BERTA MEEHAN WITH 7.0 ETT SECURED AT 21CM. SETTINGS ORDERED ZERO DISTRESS NOTED. B/S EQUAL. POSITIVE C02 EXCHANGE. PT PLACED ON VENT. ALARMS SET AND AUDIBLE. MOD. SEVERINO SPUTUM. VENT PLUGGED INTO RED OUTLET. Addendum: 06/17/17 at 1655 by JOSE MCCAULEY RT Amended: Links added.
--- NOTE | 2017-06-17 17:32 | NUR ---
MAGISTRATE JUDGE: last dose of Reglan 5 mg IV was given at 12.30 (got available dose from pyxis at 12.00), changed schedule time for same q6hr regime per MD order. next dose at 18.00. Pt.is sedated well, O2sat. 98-100%, SR, SBP over 90, was notified before re with ABG, CXR after intubation, see new orders
[2017-06-17] MEDS: LEVOFLOXACIN (250MG) 250 MG TABLET PO SCH (20:18)
--- NOTE | 2017-06-17 20:51 | NUR ---
received pt from day shift, s/p intubation, sedated on Diprivan at 5mcg, SR, on the vent, lungs congested/diminished, GT to feeding, low residual, f/c good output, mittens on, v/s stable, no pain, pt turned and repositioned, family at the bedside.
[2017-06-18] VITALS (63 sets, daily range): BP systolic 82–120; BP diastolic 39–57
--- NOTE | 2017-06-18 00:35 | NUR ---
pt is resting in the bed, v/s stable, no pain, pt turned and repositioned q2hrs.
[2017-06-18] MEDS: IPRATROPIUM NEB FS 0.5 MG/2.5 ML AMPUL.NEB NEB SCH ×4 (01:51→19:01)
[2017-06-18] MEDS: ALBUTEROL FS 2.5 MG/0.5 ML VIAL.NEB NEB SCH ×4 (01:51→19:01)
--- NOTE | 2017-06-18 04:40 | NUR ---
pt is resting in the bed, no acute distress overnight, on Diprivan at 5mcg, SR, tolerates feeding, v/s stable, no pain, pt cleaned, changed and repositioned q2hrs.
[2017-06-18 04:56] LABS: CALCIUM, SERUM 7.6 mg/dL (8.5-10.1); CARBON DIOXIDE 30 mmol/L (21-32); CHLORIDE 99 mmol/L (98-107); CREATININE 1.6 mg/dL (0.6-1.3); GLUCOSE 76 mg/dL (74-106); POTASSIUM 4.4 mmol/L (3.5-5.1); SODIUM SERUM 133 mmol/L (136-145); UREA NITROGEN, BLOOD 31 mg/dL (7-18)
[2017-06-18] MEDS: METOCLOPRAMIDE HCL 10 MG/2 ML VIAL IV SCH ×4 (05:50→23:44)
[2017-06-18] MEDS: PROPOFOL 100 ML IV PRN ×2 (05:50→23:44)
[2017-06-18] MEDS: IV 1/2NS 1000 ML 1,000 ML IV PRN (06:11)
[2017-06-18] MEDS: ACETYLCYSTEINE 10% SOLN 400 MG/4 ML VIAL NEB SCH ×3 (07:25→23:30)
--- NOTE | 2017-06-18 07:26 | NUR ---
mucomyst not given. medication unavailable Addendum: 06/18/17 at 0727 by DICKSON SCHWARZ RT Amended: Links added.
[2017-06-18] MEDS: LEVOTHYROXINE SODIUM 75 MCG TABLET PO SCH (07:50)
--- NOTE | 2017-06-18 07:56 | NUR ---
RESEARCH CONSULTANT: pt. is sedated well with 5mcg/kg/m Diprivan gtt and was rest over night per report, on B.mittens, SR, SBP 97-109, MAP 70-75, O2 sat. 95-100% on 60% FiO2, GTF residual 15ml, I/O 400ml negative, Na 133, getting IVF 1/2NS@75ml/h, Lasix 40mg IV daily, will s/w MD
[2017-06-18] MEDS: AMLODIPINE BESYLATE 10 MG TABLET PO SCH (09:00)
[2017-06-18] MEDS: PANTOPRAZOLE 40 MG/PACK PACK GT SCH ×2 (09:07→20:04)
[2017-06-18] MEDS: ASCORBIC ACID 500 MG TABLET PO SCH (09:07)
[2017-06-18] MEDS: DOCUSATE SODIUM LIQ 100 MG/10 ML UDC GT SCH ×2 (09:07→17:00)
[2017-06-18] MEDS: COLCHICINE 0.6 MG TABLET PO SCH (09:07)
[2017-06-18] MEDS: LEVETIRACETAM (250 MG) 250 MG TABLET PO SCH ×2 (09:07→20:04)
[2017-06-18] MEDS: MULTIVITAMINS,THERAGRAN 1 UDTAB TABLET PO SCH (09:07)
[2017-06-18] MEDS: FERROUS SULFATE (325 MG) 325 MG/TAB TABLET PO SCH (09:07)
[2017-06-18] MEDS: MUPIROCIN OINT 2% 22 GM TUBE SCH ×2 (09:08→20:05)
[2017-06-18] MEDS: ZINC SULFATE 220 MG CAPSULE PO SCH (09:08)
[2017-06-18 09:35] LABS: ABG BASE EXCESS 2.5 mmol/L; ABG OXYGEN SATURATION 94.4 % (92.0-98.5); ABG PCO2 45.4 mmHg (35.0-45.0); ABG PH 7.402 (7.350-7.450); ABG PO2 78.8 mmHg (75.0-100.0); AaDO2 299.1 mmHg; COHb 0.3 % (0.5-1.5); MetHb 1.4 % (0.0-1.5); O2Hb 92.8 % (94.0-97.0); SITE, ABG Right Radial; VENT MODE, BG AC 12 450 60% +5
--- NOTE | 2017-06-18 10:15 | NUR ---
HIDE DYER: pt.daughter is at BS/got detailed report re POC, pt.VS, I/O, orders, skin problem, suctions amount, sedation
--- NOTE | 2017-06-18 10:30 | NUR ---
COLLISION TECHNICIAN: notified re pt.current condition, VS, SBP 90-100, I/O, IVF, labs, Lasix, BP meds, see new orders
--- NOTE | 2017-06-18 11:15 | NUR ---
HUNTER GUIDE: RICHARD Sherman is in room, updated with all above
--- NOTE | 2017-06-18 11:30 | NUR ---
FIELD LOGISTICS COORDINATOR: is in room, updated with pt.VS, suctions amount, I/O, IVF, GTF, sedation level, see new orders
[2017-06-18] MEDS: FUROSEMIDE 40 MG/4 ML VIAL IV SCH (12:12)
--- NOTE | 2017-06-18 13:30 | NUR ---
AUTOMOTIVE ACCESSORY INSTALLER: stopped Diprivan gtt for sedation vacation
[2017-06-18] MEDS ORDERED: IV NS 0.9% 250 ML IV ONE (14:00)
--- NOTE | 2017-06-18 14:17 | NUR ---
CHIP APPLYING MACHINE TENDER: pt.is off of sedation, can open eyes spontaneously/by touch for seconds, little grimacing, coughing, bitting ETT, arms activity+, unable to follow commands, will resume sedation
--- NOTE | 2017-06-18 15:00 | NUR ---
THERAPIST'S ASSISTANT: pt., daughter got detailed report re pt.condition, VS, orders, POC. GLADYS Sutton updated with GTF, I/O, meds, VS
--- NOTE | 2017-06-18 16:15 | NUR ---
CLEANER HOUSEKEEPING: GTF residual 110ml, hold for 2 hrs, HOB over 40
--- NOTE | 2017-06-18 18:00 | NUR ---
INDUSTRIAL ELECTRICIAN: GT residual 30ml, restarted GTF
--- NOTE | 2017-06-18 18:08 | NUR ---
PT REC'D ORALLY INTUBATED ON CURRENT VENT SETTINGS CHARTED. NO SOB OR DISTRESS NOTED. NO CHANGES MADE THROUGH OUT THE SHIFT. VENT PLUGGED INTO RED OUTLET. ALARMS ARE SET AND AUDIBLE. DARWIN JAMES BEDSIDE. WILL CONTINUE TO MONITOR Addendum: 06/18/17 at 1809 by DICKSON SCHWARZ RT Amended: Links added.
[2017-06-18] MEDS: LEVOFLOXACIN (250MG) 250 MG TABLET PO SCH (20:04)
[2017-06-18] MEDS: FIBERSOURCE HN 1,000 ML BOTTLE GT PRN (23:43)
--- NOTE | 2017-06-18 23:58 | NUR ---
Received pt on vent support, pt stable on current settings, no SOB or respiratory distress noted, ventilator is plugged into red outlet, alarms audible and on. Ambu bag at bedside, will continue monitoring per MDS orders. Addendum: 06/18/17 at 2358 by TRACY LOUIS RT Amended: Links added.
[2017-06-19] VITALS (52 sets, daily range): BP systolic 58–106; BP diastolic 33–59
[2017-06-19] MEDS: IPRATROPIUM NEB FS 0.5 MG/2.5 ML AMPUL.NEB NEB SCH ×4 (01:23→19:39)
[2017-06-19] MEDS: ALBUTEROL FS 2.5 MG/0.5 ML VIAL.NEB NEB SCH ×4 (01:23→19:39)
[2017-06-19 05:11] LABS: BASOPHILS % (AUTO) 0.1 % (0.0-2.0); EOSINOPHILS # (AUTO) 2.1 /CMM (0.0-0.7); HEMATOCRIT 23 % (39-51); HEMOGLOBIN 8.1 g/dL (13.5-17.5); LYMPHOCYTES # (AUTO) 0.5 /CMM (0.8-4.8); LYMPHOCYTES % (AUTO) 6.8 % (20.0-44.0); MEAN CORPUSCULAR HEMOGLOBIN 36 PG (26.0-33.0); MEAN CORPUSCULAR HGB CONC 35 g/dl (31.0-36.0); MEAN CORPUSCULAR VOLUME 102 fL (80-96); MONOCYTES # (AUTO) 0.8 /CMM (0.1-1.30); MONOCYTES % (AUTO) 11.3 % (2.0-12.0); NEUTROPHILS # (AUTO) 4.1 /CMM (1.8-8.9); NEUTROPHILS % (AUTO) 54.3 % (43.0-81.0); PLATELET COUNT (AUTO) 136 /CMM (150-450); RDW COEFFICIENT OF VARIATION 20.2 (11.5-15.0); RED BLOOD CELL COUNT(AUTO) 2.25 MIL/uL (4.5-6.0); WHITE BLOOD COUNT (AUTO) 7.5 K/uL (4.3-11.0)
[2017-06-19 05:17] LABS: CALCIUM, SERUM 7.6 mg/dL (8.5-10.1); CARBON DIOXIDE 30 mmol/L (21-32); CHLORIDE 97 mmol/L (98-107); CREATININE 1.7 mg/dL (0.6-1.3); GLUCOSE 95 mg/dL (74-106); MAGNESIUM 1.3 mg/dL (1.8-2.4); PHOSPHORUS 2.9 mg/dL (2.5-4.9); POTASSIUM 4.1 mmol/L (3.5-5.1); SODIUM SERUM 134 mmol/L (136-145); UREA NITROGEN, BLOOD 31 mg/dL (7-18)
[2017-06-19 05:26] LABS: EOSINOPHILS % (AUTO) 27.5 % (0.0-6.0)
[2017-06-19 05:56] LABS: BAND % (MANUAL) 5 % (0.0-5.0); EOSINOPHILS % (MANUAL) 21 % (0-4); LYMPHOCYTES % (MANUAL) 8 % (16-48); MONOCYTES % (MANUAL) 13 % (0-11.0); NEUTROPHILS % (MANUAL) 53 (42-76)
[2017-06-19] MEDS: ACETYLCYSTEINE 10% SOLN 400 MG/4 ML VIAL NEB SCH ×3 (07:35→22:39)
[2017-06-19] MEDS: FERROUS SULFATE (325 MG) 325 MG/TAB TABLET PO SCH (08:35)
[2017-06-19] MEDS: ASCORBIC ACID 500 MG TABLET PO SCH (08:35)
[2017-06-19] MEDS: ZINC SULFATE 220 MG CAPSULE PO SCH (08:35)
[2017-06-19] MEDS: MULTIVITAMINS,THERAGRAN 1 UDTAB TABLET PO SCH (08:35)
[2017-06-19] MEDS: FUROSEMIDE 40 MG/4 ML VIAL IV SCH ×2 (08:35→09:00)
[2017-06-19] MEDS: PANTOPRAZOLE 40 MG/PACK PACK GT SCH ×2 (08:35→20:03)
[2017-06-19] MEDS: LEVETIRACETAM (250 MG) 250 MG TABLET PO SCH ×2 (08:35→20:03)
[2017-06-19] MEDS: COLCHICINE 0.6 MG TABLET PO SCH (08:35)
[2017-06-19] MEDS: DOCUSATE SODIUM LIQ 100 MG/10 ML UDC GT SCH ×2 (08:35→17:00)
[2017-06-19] MEDS: LEVOTHYROXINE SODIUM 75 MCG TABLET PO SCH (08:35)
[2017-06-19] MEDS: MUPIROCIN OINT 2% 22 GM TUBE SCH ×2 (08:36→20:03)
[2017-06-19] MEDS: METOCLOPRAMIDE HCL 10 MG/2 ML VIAL IV SCH ×3 (08:40→17:04)
--- NOTE | 2017-06-19 10:36 | NUR ---
HEADHUNTER NOTE 0720: Received patient sedated, lethargic. With ETT to vent, tolerated settings. NO respiratory distress noted at this time. With GT intact, feeding tolerated, no residuals noted at this time. Kept HOB elevated. SR 1st AVB 70's on the monitor. Corbin cath intact, noted with clear yellow urine drained to BSD. With B hand mittens on for safety. On isolation prec for MRSA nares, maintained and observed. 0800: Turned off Diprivan for sedation vacation, will monitor need of sedation medication. Reglan given as ordered for no available in the flat spring assembler per previous shift. 0900: Held Lasix for low BP, will continue to monitor, noted with good UOP at this time. 1030: No any significant changes noted at this time. Turned and repositioned q2. Patient lethargic, able to open eyes when called. Noted respond to touch and light pain. No any distress noted at this time.
[2017-06-19] MEDS: Magnesium 1GM/D5W 100ML PREMIX 100 ML IV SCH ×2 (12:13→13:12)
--- NOTE | 2017-06-19 18:35 | NUR ---
SPANISH LITERATURE PROFESSOR NOTE No any significant changes noted. Able to gather specimen for CDiff test, noted with one time loose stool, held Colace for the afternoon dose. Kept clean, warm and dry.Needs attended. Isolation precaution maintained and observed. and daughter visited and given update, all questions and concerns were answered
--- NOTE | 2017-06-19 19:45 | NUR ---
DRIVER MATERIAL HANDLER INITIAL NOTE RECEIVED PATIENT FROM DIANE QUEVEDO. PT IN BED. ON VENT. INTUBATED WITH VENT SETTINGS AC12 TV 450 FIO2 40 PEEP 5. LUNG SOUNDS DIMINISHED. BOWEL SOUNDS PRESENT. GT FEEDING FIBERSOURCE AT 60ML/HR WITH 30CC RESIDUAL. SAMANO INTACT AND DRAINING URINE. IV PATENT AND INTACT. REPOSITIONED FOR COMFORT. BED IN LOW LOCKED POSITION. WILL CONTINUE TO MONITOR.
--- NOTE | 2017-06-19 20:37 | NUR ---
PT RECEIVED INTUBATED ON [facility] VENT. NO RESP DISTRESS NOTED. PT TOLERATING VENT SETTINGS. SX'D FOR SML AMT OF THIN SECRETIONS. VENT ALARMS SET AND AUDIBLE. AMBU BAG AT BEDSIDE. VENT PLUGGED INTO RED OUTLET. WILL CONTINUE TO MONITOR. Addendum: 06/19/17 at 2037 by RAFAT BRANTLEY RT Amended: Links added.
[2017-06-19] MEDS: FIBERSOURCE HN 1,000 ML BOTTLE GT PRN (22:17)
[2017-06-20] VITALS (42 sets, daily range): BP systolic 81–122; BP diastolic 42–61
[2017-06-20] MEDS: IPRATROPIUM NEB FS 0.5 MG/2.5 ML AMPUL.NEB NEB SCH ×4 (01:02→19:57)
[2017-06-20] MEDS: ALBUTEROL FS 2.5 MG/0.5 ML VIAL.NEB NEB SCH ×4 (01:02→19:57)
[2017-06-20 04:57] LABS: EOSINOPHILS # (AUTO) 1.9 /CMM (0.0-0.7); HEMATOCRIT 24 % (39-51); HEMOGLOBIN 7.9 g/dL (13.5-17.5); LYMPHOCYTES # (AUTO) 0.6 /CMM (0.8-4.8); LYMPHOCYTES % (AUTO) 7.3 % (20.0-44.0); MEAN CORPUSCULAR HEMOGLOBIN 31 PG (26.0-33.0); MEAN CORPUSCULAR HGB CONC 34 g/dl (31.0-36.0); MEAN CORPUSCULAR VOLUME 93 fL (80-96); MONOCYTES # (AUTO) 0.8 /CMM (0.1-1.30); MONOCYTES % (AUTO) 10.1 % (2.0-12.0); NEUTROPHILS # (AUTO) 4.4 /CMM (1.8-8.9); NEUTROPHILS % (AUTO) 57.5 % (43.0-81.0); PLATELET COUNT (AUTO) 154 /CMM (150-450); RDW COEFFICIENT OF VARIATION 19.6 (11.5-15.0); RED BLOOD CELL COUNT(AUTO) 2.53 MIL/uL (4.5-6.0); WHITE BLOOD COUNT (AUTO) 7.7 K/uL (4.3-11.0)
[2017-06-20 04:58] LABS: EOSINOPHILS % (AUTO) 25.1 % (0.0-6.0)
[2017-06-20 05:15] LABS: CALCIUM, SERUM 7.6 mg/dL (8.5-10.1); CARBON DIOXIDE 29 mmol/L (21-32); CHLORIDE 97 mmol/L (98-107); CREATININE 1.6 mg/dL (0.6-1.3); GLUCOSE 96 mg/dL (74-106); MAGNESIUM 1.7 mg/dL (1.8-2.4); POTASSIUM 4.2 mmol/L (3.5-5.1); SODIUM SERUM 133 mmol/L (136-145); UREA NITROGEN, BLOOD 32 mg/dL (7-18)
[2017-06-20 05:28] LABS: EOSINOPHILS % (MANUAL) 19 % (0-4); LYMPHOCYTES % (MANUAL) 9 % (16-48); MONOCYTES % (MANUAL) 7 % (0-11.0); NEUTROPHILS % (MANUAL) 65 (42-76)
[2017-06-20] MEDS: METOCLOPRAMIDE HCL 10 MG/2 ML VIAL IV SCH ×5 (06:00→23:47)
[2017-06-20] MEDS: ACETYLCYSTEINE 10% SOLN 400 MG/4 ML VIAL NEB SCH ×3 (07:35→23:24)
--- NOTE | 2017-06-20 07:40 | NUR ---
RN INITIAL NOTE PATIENT RECEIVED RESTING IN BED, TRANSFER CARE FROM LEONIDAS: ICU NURSE. PATIENT IS SLEEPING, UNRESPONSIVE. NO S/S OF PAIN OR DISCOMFORT. SINUS RHYTHM WITH FIRST DEGREE AV BLOCK ON TELE MONITOR. HEART RATE: 78. PATIENT IS INTUBATED. TOLERATING VENT SETTINGS WELL. GTUBE FLUSHED, PATENT. TOLERATING FEEDING WELL. PLACEMENT VERIFIED. SAMANO CATHETER DRAINING TO GRAVITY. SKIN IS WARM AND DRY TO TOUCH. IV SITE FLUSHED, PATENT. SAFETY PRECAUTIONS IMPLEMENTED: BED IN LOCKED, LOW POSITION WITH TWO SIDE RAILS UP. CALL LIGHT AND BELONGINGS WITHIN EASY REACH. WILL CONTINUE TO MONITOR.
[2017-06-20] MEDS: PANTOPRAZOLE 40 MG/PACK PACK GT SCH ×2 (09:29→21:52)
[2017-06-20] MEDS: COLCHICINE 0.6 MG TABLET PO SCH (09:29)
[2017-06-20] MEDS: DOCUSATE SODIUM LIQ 100 MG/10 ML UDC GT SCH ×2 (09:29→16:19)
[2017-06-20] MEDS: LEVETIRACETAM (250 MG) 250 MG TABLET PO SCH ×2 (09:29→21:53)
[2017-06-20] MEDS: ASCORBIC ACID 500 MG TABLET PO SCH (09:30)
[2017-06-20] MEDS ORDERED: Magnesium 1GM/D5W 100ML PREMIX 100 ML IV SCH (09:30)
[2017-06-20] MEDS: FERROUS SULFATE (325 MG) 325 MG/TAB TABLET PO SCH (09:30)
[2017-06-20] MEDS: MULTIVITAMINS,THERAGRAN 1 UDTAB TABLET PO SCH (09:30)
[2017-06-20] MEDS: FUROSEMIDE 40 MG/4 ML VIAL IV SCH (09:30)
[2017-06-20] MEDS: ZINC SULFATE 220 MG CAPSULE PO SCH (09:30)
[2017-06-20] MEDS: LEVOTHYROXINE SODIUM 75 MCG TABLET PO SCH (09:36)
[2017-06-20] MEDS: MUPIROCIN OINT 2% 22 GM TUBE SCH ×2 (09:51→21:54)
[2017-06-20] MEDS: FIBERSOURCE HN 1,000 ML BOTTLE GT PRN (16:19)
[2017-06-20] MEDS: HYDROGEL DRESSING 90 GM TUBE TP SCH (18:51)
--- NOTE | 2017-06-20 20:00 | NUR ---
agricultural labor camp manager notes pts received intubated on mechanical vent with ac settings will tolerated , with ett of 7.5 /21cm lips no sob no distress noted , hob elevated for aspiration precaution , gt feeding on progress no residual noted, v/s stable afebrile all needs attended too call light with in reach , kept pts clean dry and comfortable
[2017-06-21] VITALS (39 sets, daily range): BP systolic 82–114; BP diastolic 40–64
[2017-06-21] MEDS: IPRATROPIUM NEB FS 0.5 MG/2.5 ML AMPUL.NEB NEB SCH ×4 (01:09→19:46)
[2017-06-21] MEDS: ALBUTEROL FS 2.5 MG/0.5 ML VIAL.NEB NEB SCH ×4 (01:09→19:46)
[2017-06-21] MEDS: METOCLOPRAMIDE HCL 10 MG/2 ML VIAL IV SCH ×3 (05:00→15:32)
[2017-06-21 05:32] LABS: BASOPHILS % (AUTO) 0.2 % (0.0-2.0); EOSINOPHILS # (AUTO) 1.4 /CMM (0.0-0.7); EOSINOPHILS % (AUTO) 23.3 % (0.0-6.0); HEMATOCRIT 25 % (39-51); HEMOGLOBIN 8.5 g/dL (13.5-17.5); LYMPHOCYTES # (AUTO) 0.6 /CMM (0.8-4.8); LYMPHOCYTES % (AUTO) 10.1 % (20.0-44.0); MEAN CORPUSCULAR HEMOGLOBIN 33 PG (26.0-33.0); MEAN CORPUSCULAR HGB CONC 34 g/dl (31.0-36.0); MEAN CORPUSCULAR VOLUME 98 fL (80-96); MONOCYTES # (AUTO) 0.7 /CMM (0.1-1.30); MONOCYTES % (AUTO) 11.3 % (2.0-12.0); NEUTROPHILS # (AUTO) 3.3 /CMM (1.8-8.9); NEUTROPHILS % (AUTO) 55.1 % (43.0-81.0); PLATELET COUNT (AUTO) 168 /CMM (150-450); RDW COEFFICIENT OF VARIATION 19.7 (11.5-15.0); RED BLOOD CELL COUNT(AUTO) 2.55 MIL/uL (4.5-6.0); WHITE BLOOD COUNT (AUTO) 5.9 K/uL (4.3-11.0)
[2017-06-21 05:56] LABS: CALCIUM, SERUM 7.7 mg/dL (8.5-10.1); CARBON DIOXIDE 33 mmol/L (21-32); CHLORIDE 95 mmol/L (98-107); CREATININE 1.7 mg/dL (0.6-1.3); GLUCOSE 98 mg/dL (74-106); MAGNESIUM 1.8 mg/dL (1.8-2.4); PHOSPHORUS 2.2 mg/dL (2.5-4.9); POTASSIUM 4.5 mmol/L (3.5-5.1); SODIUM SERUM 132 mmol/L (136-145); UREA NITROGEN, BLOOD 34 mg/dL (7-18)
[2017-06-21 06:21] LABS: BAND % (MANUAL) 1 % (0.0-5.0); EOSINOPHILS % (MANUAL) 15 % (0-4); LYMPHOCYTES % (MANUAL) 7 % (16-48); MONOCYTES % (MANUAL) 4 % (0-11.0); NEUTROPHILS % (MANUAL) 73 (42-76)
--- NOTE | 2017-06-21 06:41 | NUR ---
icu manager notes pts remains in bed intubated and remains on vent on ac settings well tolerated, on contact isolation mrsa nares . precautionary measures observed all the time , v/s stable afebrile sating 95-97 % no sob no distress noted , will endorse to rn daY SHIFT FOR CONTINUITY OF CARE.
--- NOTE | 2017-06-21 07:30 | NUR ---
CYLINDER MACHINE OPERATOR INITIAL NOTES RECEIVED PATIENT FROM CYLINDER MACHINE OPERATOR DIANNE, PATIENT IS SLEEPING, LETHARGIC, INTUBATED WITH ETT 7.0/ 22 CM AT THE LIP, SATURATING 99% O2 SAT ON TELE MONITOR SR 79 HR, FC TO GRAVITY DRAINING YELLOW CLEAR URINE, G-TUBE FEEDING FIBERSOURCE 60 ML/HR, NO RESIDUAL NOTED, HOB ELEVATED, IV RADHA MIDLINE, BED IN LOW AND LOCKED POSITION, WILL CONTINUE TO MONITOR CLOSELY.
[2017-06-21] MEDS: ACETYLCYSTEINE 10% SOLN 400 MG/4 ML VIAL NEB SCH ×3 (07:35→23:30)
[2017-06-21] MEDS: ASCORBIC ACID 500 MG TABLET PO SCH (08:34)
[2017-06-21] MEDS: FUROSEMIDE 40 MG/4 ML VIAL IV SCH (08:34)
[2017-06-21] MEDS: ZINC SULFATE 220 MG CAPSULE PO SCH (08:34)
[2017-06-21] MEDS: MULTIVITAMINS,THERAGRAN 1 UDTAB TABLET PO SCH (08:34)
[2017-06-21] MEDS: PANTOPRAZOLE 40 MG/PACK PACK GT SCH ×2 (08:34→21:51)
[2017-06-21] MEDS: COLCHICINE 0.6 MG TABLET PO SCH (08:34)
[2017-06-21] MEDS: FERROUS SULFATE (325 MG) 325 MG/TAB TABLET PO SCH (08:34)
[2017-06-21] MEDS: LEVETIRACETAM (250 MG) 250 MG TABLET PO SCH ×2 (08:34→21:51)
[2017-06-21] MEDS: LEVOTHYROXINE SODIUM 75 MCG TABLET PO SCH (08:34)
[2017-06-21] MEDS: HYDROGEL DRESSING 90 GM TUBE TP SCH (08:35)
[2017-06-21] MEDS: DOCUSATE SODIUM LIQ 100 MG/10 ML UDC GT SCH ×2 (08:35→15:32)
[2017-06-21] MEDS: MUPIROCIN OINT 2% 22 GM TUBE SCH ×2 (08:36→21:53)
[2017-06-21] MEDS: FIBERSOURCE HN 1,000 ML BOTTLE GT PRN (10:27)
--- NOTE | 2017-06-21 13:15 | NUR ---
PUBLIC HEALTH SANITARIAN NOTES REPORT GIVEN TO PUBLIC HEALTH SANITARIAN KIM FOR CONTINUITY OF CARE, PATIENT RESTING IN BED NO DISTRESS NOTED. FAMILY AT BEDSIDE.
--- NOTE | 2017-06-21 14:00 | NUR ---
icu note- received report from karthik for tabatha familt at bedside, pt resting comfortably, will monitor closely
[2017-06-21] MEDS ORDERED: NEUTRA PHOS 1 POWD.PACKET NG ONE (16:00)
[2017-06-21] MEDS: IV NS 0.9% 250 ML IV PRN (16:06)
--- NOTE | 2017-06-21 19:40 | NUR ---
MANUFACTURING ENGINEERING PROFESSOR INITIAL NOTE PT RECEIVED RESTING COMFORTABLE. ETT 7.0 AND 22 AT THE LIP WITH SETTINGS WELL TOLERATED. HOB ELEVATED AND ON ASPIRATION PRECAUTIONS. GTUBE FEEDING WELL TOLERATED AND NO RESIDUALS NOTED. IV RADHA MIDLINE CLEAN, PATENT AND FLUSHING WELL. SAMANO CATHETER IN PLACE AND DRAINING BY GRAVITY. CONTACT ISOLATION PRECAUTIONS OBSERVED. WILL CONTINUE TO MONITOR.
[2017-06-22] VITALS (38 sets, daily range): BP systolic 93–124; BP diastolic 43–66
[2017-06-22] MEDS ORDERED: METOCLOPRAMIDE HCL 10 MG/2 ML VIAL ONE ×2 (00:04→00:05)
[2017-06-22] MEDS: METOCLOPRAMIDE HCL 10 MG/2 ML VIAL IV SCH ×3 (00:07→11:37)
[2017-06-22] MEDS: ALBUTEROL FS 2.5 MG/0.5 ML VIAL.NEB NEB SCH ×4 (01:31→19:52)
[2017-06-22] MEDS: IPRATROPIUM NEB FS 0.5 MG/2.5 ML AMPUL.NEB NEB SCH ×4 (01:31→19:52)
[2017-06-22] MEDS: FIBERSOURCE HN 1,000 ML BOTTLE GT PRN (05:25)
[2017-06-22 05:30] LABS: CALCIUM, SERUM 7.8 mg/dL (8.5-10.1); CARBON DIOXIDE 32 mmol/L (21-32); CHLORIDE 96 mmol/L (98-107); CREATININE 1.7 mg/dL (0.6-1.3); GLUCOSE 106 mg/dL (74-106); MAGNESIUM 1.7 mg/dL (1.8-2.4); PHOSPHORUS 2.4 mg/dL (2.5-4.9); POTASSIUM 4.9 mmol/L (3.5-5.1); SODIUM SERUM 132 mmol/L (136-145); UREA NITROGEN, BLOOD 36 mg/dL (7-18)
--- NOTE | 2017-06-22 06:57 | NUR ---
SENIOR ACCOUNTING ASSOCIATE CLOSING NOTE PT REMAINED STABLE DURING SHIFT. NO ACUTE DISTRESS NOTED. ETT 7.0 AND 22CM AT THE LIP. HOB REMAINED ELEVATED. ON ASPIRATION PRECAUTIONS. NO RESIDUALS NOTED TO GTUBE FEEDING. REPOSITIONED Q2H. KEPT CLEAN AND DRY. ISOLATION PRECAUTIONS OBSERVED. ALL NEEDS ATTENDED TO PROMPTLY. WILL ENDORSE TO NEXT SHIFT FOR CONTINUITY OF CARE.
[2017-06-22] MEDS: ACETYLCYSTEINE 10% SOLN 400 MG/4 ML VIAL NEB SCH ×3 (07:04→23:30)
--- NOTE | 2017-06-22 07:05 | NUR ---
PT RECEIVED ORALLY INTUBATED ON MECHANICAL VENT W/ SETTINGS PER MD. VENT IN RED OUTLET, VENT ALARMS CHECKED AND AUDIBLE. PT SX'ED AND LAVAGED PRN TO MOD AMOUNTS OF THICK PALE YELLOW SECRETIONS. ETT SECURED WITH ANCHOFAST, PATENT, CLEAN AND DRY. BREATH SOUNDS EQUAL, DIMINISHED. PLAN IS TO CONTINUE CURRENT CARE UNDER MD ORDERS AND MONITOR FOR CHANGES IN STATUS. Addendum: 06/22/17 at 0742 by SHANKAR YOUNG RT Amended: Links added.
--- NOTE | 2017-06-22 07:20 | NUR ---
ICU/RN - Initial Notes Received pt orally intubated to mechanical vent with settings as ordered. No s/s of respiratory distress. Pt lethargic, moved to localized pain. On tele SR 1st deg AVB 77. Corbin catheter intact draining urine to gravity. GT intact, tolerating tube feeding well. Safety and comfort measures in place. Will continue to monitor pt closely.
[2017-06-22] MEDS: PANTOPRAZOLE 40 MG/PACK PACK GT SCH ×2 (08:09→21:08)
[2017-06-22] MEDS: FUROSEMIDE 40 MG/4 ML VIAL IV SCH (08:09)
[2017-06-22] MEDS: MULTIVITAMINS,THERAGRAN 1 UDTAB TABLET PO SCH (08:09)
[2017-06-22] MEDS: HYDROGEL DRESSING 90 GM TUBE TP SCH (08:09)
[2017-06-22] MEDS: ASCORBIC ACID 500 MG TABLET PO SCH (08:09)
[2017-06-22] MEDS: COLCHICINE 0.6 MG TABLET PO SCH (08:09)
[2017-06-22] MEDS: DOCUSATE SODIUM LIQ 100 MG/10 ML UDC GT SCH ×2 (08:09→16:23)
[2017-06-22] MEDS: LEVETIRACETAM (250 MG) 250 MG TABLET PO SCH ×2 (08:09→21:08)
[2017-06-22] MEDS: ZINC SULFATE 220 MG CAPSULE PO SCH (08:09)
[2017-06-22] MEDS: FERROUS SULFATE (325 MG) 325 MG/TAB TABLET PO SCH (08:09)
[2017-06-22] MEDS: LEVOTHYROXINE SODIUM 75 MCG TABLET PO SCH (08:09)
[2017-06-22] MEDS: MUPIROCIN OINT 2% 22 GM TUBE SCH ×2 (08:10→21:08)
[2017-06-22] MEDS ORDERED: Magnesium 1GM/D5W 100ML PREMIX 100 ML IV SCH (09:59)
[2017-06-22] MEDS: IV NS 0.9% 250 ML IV PRN (10:12)
--- NOTE | 2017-06-22 11:25 | NUR ---
ICU/RN - Notes ABG on CPAP: pH 7.462 pCO2 45.7 pO2 67.7 HCO3 31.[address] Stephen. No change on vent settings per MD.
[2017-06-22] MEDS ORDERED: NEUTRA PHOS 1 POWD.PACKET NG ONE (14:00)
[2017-06-22] MEDS: METOCLOPRAMIDE HCL 10 MG/10 ML UDC PO SCH (17:32)
[2017-06-22] MEDS ORDERED: METOCLOPRAMIDE HCL 10 MG/10 ML UDC PO SCH (18:00)
--- NOTE | 2017-06-22 18:05 | NUR ---
ICU/RN - Notes Pt tolerating CPAP well with no s/s of respiratory distress. Pt appears comfortable with eyes closed.
--- NOTE | 2017-06-22 19:20 | NUR ---
RN INITIAL NOTE RECEIVED PT IN NO ACUTE DISTRESS IN BED. PT IS OBTUNDED. PT IS ON O2 VIA ETT THAT IS CLEAN DRY AND INTACT. ETT IS 12/05 AT THE LIP. PT IS ON CPAP SETTINGS @ PSV 12 PEEP 5. PT IS ON TELE WITH SR WITH 1ST DEGREE AV BLOCK IN THE 80'S. PT HAS GTUBE THAT IS CLEAN DRY INTACT AND PATENT WITH FREE WATER FLUSH. PT IS ON GTUBE FEEDING FIBERSOURCE @ 60ML/HR AND TOLERATING WELL WITH 0 RESIDUAL. PT HAS F/C THAT IS CLEAN DRY INTACT AND PATENT WITH YELLOW URINE DRAINING. PT HAS RADHA MIDLINE THAT IS CLEAN DRY INTACT AND PATENT WITH NS @ TKO. BED IN LOW LOCK POSITION WITH RIALS UP X 2. CALL LIGHT WITHIN REACH AND ALL SAFETY MEASURES ENSURED AND CARRIED OUT. WILL CONTINUE TO MONITOR PT.
--- NOTE | 2017-06-22 21:23 | NUR ---
PT RECEIVED ON VENT VIA CHARTED SETTINGS AND ROUTE. VENT PLUGGED INTO RED OUTLET. VENT ALARMS SET AND AUDIBLE. DISCONNECT ALARMS CHECKED. AMBU BAG AT BEDSIDE. TOLERATING VENT SETTINGS. Addendum: 06/22/17 at 2124 by SLOAN BATES RT Amended: Links added.
[2017-06-22] MEDS ORDERED: PIPERACILLIN /TAZOBACTAM 2.25 G VIAL IV ONE (23:54)
[2017-06-23] VITALS (39 sets, daily range): BP systolic 89–128; BP diastolic 18–87
[2017-06-23] MEDS: METOCLOPRAMIDE HCL 10 MG/10 ML UDC PO SCH ×3 (00:01→11:04)
[2017-06-23] MEDS: IPRATROPIUM NEB FS 0.5 MG/2.5 ML AMPUL.NEB NEB SCH ×4 (01:19→20:05)
[2017-06-23] MEDS: ALBUTEROL FS 2.5 MG/0.5 ML VIAL.NEB NEB SCH ×4 (01:19→20:05)
[2017-06-23 05:04] LABS: CALCIUM, SERUM 8.1 mg/dL (8.5-10.1); CARBON DIOXIDE 35 mmol/L (21-32); CHLORIDE 95 mmol/L (98-107); CREATININE 1.7 mg/dL (0.6-1.3); GLUCOSE 94 mg/dL (74-106); MAGNESIUM 1.7 mg/dL (1.8-2.4); PHOSPHORUS 3.3 mg/dL (2.5-4.9); POTASSIUM 4.9 mmol/L (3.5-5.1); SODIUM SERUM 132 mmol/L (136-145); UREA NITROGEN, BLOOD 39 mg/dL (7-18)
--- NOTE | 2017-06-23 07:25 | NUR ---
RN NOTE PT REMAINS IN NO ACUTE DISTRESS IN BED. PT DID NOT HAVE ANY SIGNIFICANT CHANGE IN CONDITION DURING SHIFT. PT TOLERATED VENT SETTING WELL. ALL NEEDS MET, ALL ORDERS CARRIED OUT. WILL ENDORSE CARE TO AM RN FOR CONTINUITY OF CARE.
[2017-06-23] MEDS: ACETYLCYSTEINE 10% SOLN 400 MG/4 ML VIAL NEB SCH ×3 (07:35→23:41)
[2017-06-23] MEDS: ASCORBIC ACID 500 MG TABLET PO SCH (08:19)
[2017-06-23] MEDS: ZINC SULFATE 220 MG CAPSULE PO SCH (08:19)
[2017-06-23] MEDS: LEVOTHYROXINE SODIUM 75 MCG TABLET PO SCH (08:19)
[2017-06-23] MEDS: COLCHICINE 0.6 MG TABLET PO SCH (08:19)
[2017-06-23] MEDS: DOCUSATE SODIUM LIQ 100 MG/10 ML UDC GT SCH ×2 (08:19→16:45)
[2017-06-23] MEDS: LEVETIRACETAM (250 MG) 250 MG TABLET PO SCH ×2 (08:19→20:30)
[2017-06-23] MEDS: FERROUS SULFATE (325 MG) 325 MG/TAB TABLET PO SCH (08:19)
[2017-06-23] MEDS: FUROSEMIDE 40 MG/4 ML VIAL IV SCH (08:19)
[2017-06-23] MEDS: PANTOPRAZOLE 40 MG/PACK PACK GT SCH ×2 (08:19→20:30)
[2017-06-23] MEDS: MULTIVITAMINS,THERAGRAN 1 UDTAB TABLET PO SCH (08:19)
[2017-06-23] MEDS: MUPIROCIN OINT 2% 22 GM TUBE SCH ×2 (08:20→20:30)
[2017-06-23] MEDS: HYDROGEL DRESSING 90 GM TUBE TP SCH (08:20)
--- NOTE | 2017-06-23 08:45 | NUR ---
PLACED PT ON COOL AEROSOL 40%, 10/L PER DR ALCARAZ. KEEP SAT > 94%. PT LINDA WELL AT THIS TIME. HR-89, SPO2: 96%, RESP RATE: 25. NO RESP DISTRESS NOTED. WILL CONTINUE TO MONITOR PT. Addendum: 06/23/17 at 0940 by YOHAN BRAMBILA RT Amended: Links added.
--- NOTE | 2017-06-23 09:44 | NUR ---
MUCOMYST NOT GIVEN. MUCOMYST NOT AV IN OMNICELL.
--- NOTE | 2017-06-23 09:50 | NUR ---
PT PLACED ON COOL AEROSOL AT 0850 AND 1HR SUBSEQUENT ABG DRAWN AND SHOWN TO DR. ALCARAZ. HE ORDERS TO TITRATE UP THE FI02 TO 60%. PLAN IS TO KEEP ON COOL AEROSOL AND FREQUENT SUCTIONING, FOR PULMONARY HYGIENE, NO EXTUBATION TODAY.
[2017-06-23 10:18] LABS: ABG BASE EXCESS 4.1 mmol/L; ABG PCO2 37.7 mmHg (35.0-45.0); ABG PH 7.485 (7.350-7.450); ABG PO2 60.6 mmHg (75.0-100.0); AaDO2 181.2 mmHg; COHb 1.2 % (0.5-1.5); MetHb 0.1 % (0.0-1.5); O2Hb 89.8 % (94.0-97.0); SITE, ABG Right Brachial
--- NOTE | 2017-06-23 11:05 | NUR ---
HOLDING 1200 DOSE OF REGLAN, PT HAS LOOSE STOOL AND NO GASTRIC RESIDUALS, WILL CONTINUE TO ASSESS FOR INTOLERANCE/POOR ABSORPTION.
[2017-06-23] MEDS ORDERED: Magnesium 1GM/D5W 100ML PREMIX 100 ML IV SCH (12:00)
--- NOTE | 2017-06-23 14:59 | NUR ---
IGLESIA Tariq NP WORKING WITH DR. HARTMANN ON THE UNIT. REPORTED THE LOOSE STOOL, NO RESIDUALS AND HOLDING OF THE REGLAN, SHE ORDERS TO DC THE REGLAN. ORDERS PLACED.
--- NOTE | 2017-06-23 16:10 | NUR ---
PT RECEIVED INTUBATED ON MECHANICAL VENTILATOR ON SETTINGS NOTED. CPAP MODE, PER MD ORDER. PT WAS PLACED ON COOL AEROSOL FIO2 40%, 10/L. THEN FIO2 WAS INCREASED TO 60%, 10/L PER DR ALCARAZ ORDER AFTER ABG WAS DONE. SUCTIONED COPIOUS AMOUNT OF YELLOW, THICK SECRETIONS Q2 HRS AND PRN. PT REMAINS INTUBATED WITH 7.0/ 21 AT LIP ON C/A PER MD ORDER. WILL CONTINUE TO MONITOR PT. Addendum: 06/23/17 at 1617 by YOHAN BRAMBILA RT Amended: Links added.
--- NOTE | 2017-06-23 19:30 | NUR ---
RECEIVED PATIENT IN BED, PATIENT IS ORALLY INTUBATED 7/22 CM@ LIP ON AEROSOL COOLING MASK WITH SETTINGS 10L/FIO2 60% NO DISTRESS NOTED. VSS,AFEBRILE. SAFETY MEASURES IMPLEMENTED CONTINUE TO MONITOR
[2017-06-24] VITALS (38 sets, daily range): BP systolic 87–116; BP diastolic 37–85
[2017-06-24] MEDS: IPRATROPIUM NEB FS 0.5 MG/2.5 ML AMPUL.NEB NEB SCH ×4 (01:24→19:47)
[2017-06-24] MEDS: ALBUTEROL FS 2.5 MG/0.5 ML VIAL.NEB NEB SCH ×4 (01:24→19:47)
--- NOTE | 2017-06-24 03:30 | NUR ---
AFTER PATIENT'S BATH- PATIENT DESATURATED TO 82% TO 90% ON 60% COOL AEROSOL, PATIENT WAS SUCTIONED WITH MINIMAL IMPROVEMENT. RESPIRATORY THERAPIST CALLED AND PATIENT WAS LAVAGE SUCTIONED AFTER THAT SATURATION SLOWLY WENT UP TO 94%. CONTINUE TO MONITOR
[2017-06-24 05:25] LABS: CALCIUM, SERUM 8.3 mg/dL (8.5-10.1); CARBON DIOXIDE 34 mmol/L (21-32); CHLORIDE 94 mmol/L (98-107); CREATININE 1.9 mg/dL (0.6-1.3); GLUCOSE 79 mg/dL (74-106); POTASSIUM 4.6 mmol/L (3.5-5.1); SODIUM SERUM 133 mmol/L (136-145); UREA NITROGEN, BLOOD 45 mg/dL (7-18)
[2017-06-24] MEDS: FIBERSOURCE HN 1,000 ML BOTTLE GT PRN (06:05)
[2017-06-24] MEDS: ACETYLCYSTEINE 10% SOLN 400 MG/4 ML VIAL NEB SCH ×3 (07:35→23:30)
[2017-06-24] MEDS: DOCUSATE SODIUM LIQ 100 MG/10 ML UDC GT SCH ×2 (09:00→17:00)
[2017-06-24] MEDS: ZINC SULFATE 220 MG CAPSULE PO SCH (09:04)
[2017-06-24] MEDS: MULTIVITAMINS,THERAGRAN 1 UDTAB TABLET PO SCH (09:05)
[2017-06-24] MEDS: PANTOPRAZOLE 40 MG/PACK PACK GT SCH ×2 (09:05→21:30)
[2017-06-24] MEDS: COLCHICINE 0.6 MG TABLET PO SCH (09:05)
[2017-06-24] MEDS: ASCORBIC ACID 500 MG TABLET PO SCH (09:05)
[2017-06-24] MEDS: LEVETIRACETAM (250 MG) 250 MG TABLET PO SCH ×2 (09:05→21:30)
[2017-06-24] MEDS: FERROUS SULFATE (325 MG) 325 MG/TAB TABLET PO SCH (09:05)
[2017-06-24] MEDS: FUROSEMIDE 40 MG/4 ML VIAL IV SCH (09:05)
[2017-06-24] MEDS: HYDROGEL DRESSING 90 GM TUBE TP SCH (09:05)
[2017-06-24] MEDS: MUPIROCIN OINT 2% 22 GM TUBE SCH (09:06)
[2017-06-24] MEDS: LEVOTHYROXINE SODIUM 75 MCG TABLET PO SCH (09:06)
--- NOTE | 2017-06-24 09:50 | NUR ---
DR. ALCARAZ ON THE UNIT TO ANASTACIO PT, REPORTED TO HIM PT REMAINS STABLE ON T PIECE AND 60% FIO2, MODERATE THICK SECRETIONS, WITH FREQUENT SUCTIONING. NO PLAN FOR EXTUBATION TODAY PER DR. ALCARAZ.
--- NOTE | 2017-06-24 20:12 | NUR ---
TD RN INITIAL NOTE RECEIVED PATIENT IN BED, PATIENT IS ORALLY INTUBATED 7/22 CM@ LIP ON AEROSOL COOLING MASK WITH SETTINGS 10L/FIO2 60% NO DISTRESS NOTED. VSS,AFEBRILE. SAFETY MEASURES IMPLEMENTED CONTINUE TO MONITOR.
[2017-06-25] VITALS (33 sets, daily range): BP systolic 90–119; BP diastolic 36–62
[2017-06-25] MEDS: IPRATROPIUM NEB FS 0.5 MG/2.5 ML AMPUL.NEB NEB SCH ×4 (02:10→19:45)
[2017-06-25] MEDS: ALBUTEROL FS 2.5 MG/0.5 ML VIAL.NEB NEB SCH ×4 (02:10→19:45)
[2017-06-25] MEDS: FIBERSOURCE HN 1,000 ML BOTTLE GT PRN ×2 (04:09→23:01)
--- NOTE | 2017-06-25 06:57 | NUR ---
TD RN CLOSING NOTE ENDORSED PATIENT IN BED, PATIENT IS ORALLY INTUBATED 7/22 CM@ LIP ON AEROSOL COOLING MASK WITH SETTINGS 10L/FIO2 60% NO DISTRESS NOTED. VSS,AFEBRILE. SAFETY MEASURES IMPLEMENTED CONTINUE TO MONITOR.
--- NOTE | 2017-06-25 07:30 | NUR ---
DIE REPAIRER TRIMMER DIES RECEIVED PATIENT ASLEEP, EASY TO WAKE UP\ ON COOL AEROSOL CONNECTED TO ET TUBE SUCTIONED BROWNISH YELLOWISH TENACIOUS SECRETION LARGE IN AMOUNT OPENS EYE WITH TRACKING, UNABLE TO KNOW HIS ORIENTATION (+) STIMULUS TO PAIN AFEBRILE ON FEEDING TUBE, NO RESIDUAL WITH SAMANO CATHETER DRAINING TO URINE BAG, MODERATE IN AMOUNT YELLOWISH IN COLOR
[2017-06-25] MEDS: ACETYLCYSTEINE 10% SOLN 400 MG/4 ML VIAL NEB SCH ×3 (07:35→23:30)
[2017-06-25] MEDS: LEVOTHYROXINE SODIUM 75 MCG TABLET PO SCH (07:57)
[2017-06-25] MEDS: FUROSEMIDE 40 MG/4 ML VIAL IV SCH (08:33)
[2017-06-25] MEDS: PANTOPRAZOLE 40 MG/PACK PACK GT SCH ×2 (08:35→20:21)
[2017-06-25] MEDS: COLCHICINE 0.6 MG TABLET PO SCH (08:35)
[2017-06-25] MEDS: FERROUS SULFATE (325 MG) 325 MG/TAB TABLET PO SCH (08:36)
[2017-06-25] MEDS: LEVETIRACETAM (250 MG) 250 MG TABLET PO SCH ×2 (08:36→20:21)
[2017-06-25] MEDS: ASCORBIC ACID 500 MG TABLET PO SCH (08:36)
[2017-06-25] MEDS: MULTIVITAMINS,THERAGRAN 1 UDTAB TABLET PO SCH (08:36)
[2017-06-25] MEDS: HYDROGEL DRESSING 90 GM TUBE TP SCH (08:37)
[2017-06-25] MEDS: DOCUSATE SODIUM LIQ 100 MG/10 ML UDC GT SCH ×2 (08:38→16:38)
[2017-06-25] MEDS: ZINC SULFATE 220 MG CAPSULE PO SCH (08:38)
--- NOTE | 2017-06-25 09:00 | NUR ---
INFRASTRUCTURE DEVELOPER RT PLACED PATIENT ON 50% FI02 SINCE SATURATION IS BETWEEN 95%-97% MONITORED CLOSELY
[2017-06-25 09:27] LABS: BASOPHILS % (AUTO) 0.3 % (0.0-2.0); EOSINOPHILS # (AUTO) 0.9 /CMM (0.0-0.7); EOSINOPHILS % (AUTO) 12.6 % (0.0-6.0); HEMATOCRIT 25 % (39-51); HEMOGLOBIN 8.6 g/dL (13.5-17.5); LYMPHOCYTES # (AUTO) 1.3 /CMM (0.8-4.8); LYMPHOCYTES % (AUTO) 18.9 % (20.0-44.0); MEAN CORPUSCULAR HEMOGLOBIN 34 PG (26.0-33.0); MEAN CORPUSCULAR HGB CONC 35 g/dl (31.0-36.0); MEAN CORPUSCULAR VOLUME 97 fL (80-96); MONOCYTES % (AUTO) 14.6 % (2.0-12.0); NEUTROPHILS # (AUTO) 3.7 /CMM (1.8-8.9); NEUTROPHILS % (AUTO) 53.6 % (43.0-81.0); PLATELET COUNT (AUTO) 216 /CMM (150-450); RED BLOOD CELL COUNT(AUTO) 2.57 MIL/uL (4.5-6.0); WHITE BLOOD COUNT (AUTO) 6.8 K/uL (4.3-11.0)
[2017-06-25 09:41] LABS: CALCIUM, SERUM 8.2 mg/dL (8.5-10.1); CARBON DIOXIDE 32 mmol/L (21-32); CHLORIDE 96 mmol/L (98-107); GLUCOSE 95 mg/dL (74-106); POTASSIUM 4.2 mmol/L (3.5-5.1); SODIUM SERUM 134 mmol/L (136-145); UREA NITROGEN, BLOOD 50 mg/dL (7-18)
[2017-06-25] MEDS ORDERED: SILVER NITRATE APPLICATOR 1 EA BOX TP ONE (12:30)
[2017-06-25] MEDS ORDERED: LIDOCAINE 1%-EPI 1:100,000 20 ML VIAL TP ONE (12:30)
--- NOTE | 2017-06-25 14:28 | NUR ---
SCRAP DEALER SEEN AND EXAMINED BY JULIA LYNCH AND ROBIN WILLIAMSON WITH NEW ORDERS MADE AND CARRIED OUT CONSENT FOR DEBRIDEMENT SIGNED BY TRANSLATED BY SAE EDGAR Addendum: 06/25/17 at 1431 by LEONIDAS RICHARDS RN ROBIN WILLIAMSON SAW THE WOUND AND ORDERED FOR DEBRIDEMENT OF SACRAL WOUND TOMORROW
--- NOTE | 2017-06-25 19:30 | NUR ---
SLOT OPERATIONS MANAGER: RECEIVED ORALLY INTUBATED PT ON C/A AT 40% FI02. NO ACUTE DISTRESS, NO EVIDENCE OF DISCOMFORT. OPENS EYES AT TIMES AND ABLE TO TRACK. UNABLE TO FOLLOW SIMPLE COMMANDS. SR WT 1ST DEGREE AV BLOCK ON COMMUNITY ENGAGEMENT MANAGER. AFEBRILE. GT PATENT AND VERIFIED PLACEMENT, RUNNING FIBERSOURCE HN AT 60ML/HR WT NO RESIDUAL. RADHA MIDLINE TKO WT NO S/S OF INFILTRATION. F/C PATENT AND INTACT DRAINING CLEAR YELLOW URINE. HOB AT 45 DEGREES. SAFETY, SEIZURE AND ASPIRATION PRECAUTIONS NOTED. WILL CONTINUE TO MONITOR.
[2017-06-25] MEDS ORDERED: LEVETIRACETAM SOL (5 ML) 100 MG/ML UDC GT SCH (21:00)
[2017-06-26] VITALS (26 sets, daily range): BP systolic 87–126; BP diastolic 43–71
--- NOTE | 2017-06-26 | NUR ---
AIRPLANE NAVIGATOR: NO BRYN. VS WITHIN HIS BASELINE. REPOSITIONED FOR COMFORT. ORAL AND ETT SUCTIONING DONE WT MODERATE AMT. OF THICK WHITE SECRETIONS. WILL CONTINUE TO MONITOR.
[2017-06-26] MEDS: ALBUTEROL FS 2.5 MG/0.5 ML VIAL.NEB NEB SCH ×4 (01:39→20:19)
[2017-06-26] MEDS: IPRATROPIUM NEB FS 0.5 MG/2.5 ML AMPUL.NEB NEB SCH ×4 (01:39→20:19)
--- NOTE | 2017-06-26 04:15 | NUR ---
I U RN: BED BATH GIVEN AND TOLERATED WELL. VS WITHIN HIS BASELINE.
[2017-06-26] MEDS: ACETYLCYSTEINE 10% SOLN 400 MG/4 ML VIAL NEB SCH ×3 (07:25→23:30)
--- NOTE | 2017-06-26 07:45 | NUR ---
ICU/RN PT IS INTUBATED ON T-TUBE ,FIO2-40%,SAT O2-95%.V/S STABLE AFEBRILE.NO PAIN REPORTED AT THIS TIME.PT OPEN EYES,REACTIVE ON PAIN STIMULATION .CONTRACTED.G-TUBE INFUSING WITH FIBERSOURCE AT 60 ML/HR.NO RESIDUAL NOTED.F/C DRAINING WITH YELLOW URINE.SACRAL WOUND COVERED WITH DRESSING.SUCTION PROVIDED.REPOSITION FOR COMFORT.CONTINUE MONITORING
[2017-06-26] MEDS: Z GUARD REMEDY 2 OZ OINT TP PRN (08:27)
[2017-06-26] MEDS: LEVETIRACETAM SOL (5 ML) 100 MG/ML UDC GT SCH ×2 (08:27→20:39)
[2017-06-26] MEDS: LEVOTHYROXINE SODIUM 75 MCG TABLET PO SCH (08:28)
[2017-06-26] MEDS: PANTOPRAZOLE 40 MG/PACK PACK GT SCH ×2 (08:28→20:39)
[2017-06-26] MEDS: ASCORBIC ACID 500 MG TABLET PO SCH (08:28)
[2017-06-26] MEDS: FUROSEMIDE 20 MG/2 ML VIAL IV SCH (08:28)
[2017-06-26] MEDS: MULTIVITAMINS,THERAGRAN 1 UDTAB TABLET PO SCH (08:28)
[2017-06-26] MEDS: ZINC SULFATE 220 MG CAPSULE PO SCH (08:28)
[2017-06-26] MEDS: FERROUS SULFATE (325 MG) 325 MG/TAB TABLET PO SCH (08:28)
[2017-06-26] MEDS: COLCHICINE 0.6 MG TABLET PO SCH (08:28)
[2017-06-26] MEDS: DOCUSATE SODIUM LIQ 100 MG/10 ML UDC GT SCH ×2 (08:29→16:52)
[2017-06-26] MEDS: HYDROGEL DRESSING 90 GM TUBE TP SCH (08:29)
[2017-06-26] MEDS: CADEXOMER IODINE 40 GM TUBE TP SCH (16:53)
--- NOTE | 2017-06-26 19:30 | NUR ---
ERADICATOR: PT RECEIVED ORALLY INTUBATED, ON C/A AT 40% FI02. NO ACUTE DISTRESS. NO EVIDENCE OF DISCOMFORT. OPENS EYES INTERMITTENTLY AND TRACKS, UNABLE TO FOLLOW SIMPLE COMMANDS AND WITHDRAWS TO LOCALIZED PAIN. SR WT 1ST DEGREE AVB ON STAGE ELECTRICIAN HELPER. AFEBRILE. BP WITHIN HIS BASELINE. GTF TOLERATING WELL WT 5CC RESIDUAL. F/C DRAINING CLEAR YELLOW URINE. HOB AT 45 DEGREES. SAFETY PRECAUTION NOTED. WILL CONTINUE TO MONITOR.
--- NOTE | 2017-06-26 22:00 | NUR ---
ICU/CLASSROOM TEACHER TOOK OVER CARE FROM NIGHT NURSE, REPORT RECEIVED FROM SAE SHEPHERD. REPORT REFLECTS THE ASSESSMENT OF THE PT ON THE FLOW SHEET, THERE IS NO NEW DOCUMENTATION THAT NEEDS TO BE UPDATED. PT WAS TURNED AND REPOSITION FROM COMFORT AND CARE.
[2017-06-27] VITALS (26 sets, daily range): BP systolic 86–120; BP diastolic 40–66
--- NOTE | 2017-06-27 00:10 | NUR ---
ICU/COVERAGE SPECIALIST RN MUCOMYST HHN NOT GIVEN DUE TO HOSPITAL DOES NOT HAVE STOCK OF THIS. PT WILL CONTINUE TO GET OTHER SCHEDULED BREATHING TREATMENT
[2017-06-27] MEDS: ALBUTEROL FS 2.5 MG/0.5 ML VIAL.NEB NEB SCH ×5 (01:30→19:32)
[2017-06-27] MEDS: IPRATROPIUM NEB FS 0.5 MG/2.5 ML AMPUL.NEB NEB SCH ×5 (01:30→19:32)
[2017-06-27] MEDS: FIBERSOURCE HN 1,000 ML BOTTLE GT PRN (04:31)
[2017-06-27 05:17] LABS: CALCIUM, SERUM 8.6 mg/dL (8.5-10.1); CARBON DIOXIDE 31 mmol/L (21-32); CHLORIDE 98 mmol/L (98-107); GLUCOSE 87 mg/dL (74-106); POTASSIUM 4.5 mmol/L (3.5-5.1); SODIUM SERUM 134 mmol/L (136-145); UREA NITROGEN, BLOOD 50 mg/dL (7-18)
[2017-06-27] MEDS: ACETYLCYSTEINE 10% SOLN 400 MG/4 ML VIAL NEB SCH ×3 (07:23→23:30)
--- NOTE | 2017-06-27 08:00 | NUR ---
BASS GUITAR TEACHER: pt. is without sedation, rest, reactive by touch, can open eyes for seconds, no eyes contact, SR, SBP 90-100, O2 sat. WNL now on 35% T-piece O2 flow 10L via ETT, GTF residual WNL, getting NS 200ml via GT q6h, Na 134, will s/w MD, and Flexiseal tube order?,pt has III sacral wound, multiple liquid BMs
[2017-06-27] MEDS: LEVOTHYROXINE SODIUM 75 MCG TABLET PO SCH (08:01)
[2017-06-27] MEDS: FUROSEMIDE 20 MG/2 ML VIAL IV SCH (08:54)
[2017-06-27] MEDS: FERROUS SULFATE (325 MG) 325 MG/TAB TABLET PO SCH (08:54)
[2017-06-27] MEDS: PANTOPRAZOLE 40 MG/PACK PACK GT SCH ×2 (08:54→21:12)
[2017-06-27] MEDS: LEVETIRACETAM SOL (5 ML) 100 MG/ML UDC GT SCH ×2 (08:54→21:13)
[2017-06-27] MEDS: MULTIVITAMINS,THERAGRAN 1 UDTAB TABLET PO SCH (08:54)
[2017-06-27] MEDS: COLCHICINE 0.6 MG TABLET PO SCH (08:54)
[2017-06-27] MEDS: ZINC SULFATE 220 MG CAPSULE PO SCH (08:54)
[2017-06-27] MEDS: ASCORBIC ACID 500 MG TABLET PO SCH (08:54)
[2017-06-27] MEDS: DOCUSATE SODIUM LIQ 100 MG/10 ML UDC GT SCH ×2 (08:55→16:24)
[2017-06-27] MEDS: CADEXOMER IODINE 40 GM TUBE TP SCH (09:01)
--- NOTE | 2017-06-27 09:30 | NUR ---
ASSISTANT PROFESSOR OF SOCIOLOGY: is in room, updated with pt.current condition, VS, I/O, GTF, ETT T-piece 35% O2, meds, Na 134, said: continue NS 200ml via GT q6h, ok to place flexiseal tube for sacral wound protection if diarrhea present, waiting family for trach placement consent
--- NOTE | 2017-06-27 14:14 | NUR ---
RADIO MECHANIC: suctioned pt.x4 with lavage/thick large suction amount episodes, tolerated well for ETT T-piece 35% cool O2, liquid stool/sacral wound dressing was contaminated with stool/placed in flexiseal rectal tube, IIIstage sacral wound: w/c done, waiting debridement, consent+, pt.is rest, reactive by touch/rest, O2 sat. 91-94%, sent message to get consent for trach placement for pt
--- NOTE | 2017-06-27 17:45 | NUR ---
CALLS IN EGYPTIAN TO PT'S AND TO DAUGHTER RED REGARDING NEED TO SIGN CONSENT FOR TRACH. TO COME Wednesday06/28/17 AM
--- NOTE | 2017-06-27 17:52 | NUR ---
WET MILLING WHEEL OPERATOR: pt. is rest, reactive by touch, SR, SBP over 90, on 35%/10L ETT T-piece O2, O2 sat. WNL, had small flexiseal leak, fixed, wound care done again, message in Romanian was sent before to pt., nobody called back, charge nurse spoke with pt.daughter, pt. is going to come in tomorrow and sign consent
--- NOTE | 2017-06-27 21:00 | NUR ---
RN NOTE NOTIFIED DR HARRIS PT MAGNESIUM IS 1.7. RECEIVED ORDERS TO GIVE 1G IVPB MAGNESIUM. READBACK ORDERS PERFORMED. Addendum: 06/28/17 at 0641 by NAYLA KAYE RN DISMISS NOTE. CHARTED ON WRONG PT.
[2017-06-28] VITALS (30 sets, daily range): BP systolic 76–112; BP diastolic 32–60
[2017-06-28] MEDS: IPRATROPIUM NEB FS 0.5 MG/2.5 ML AMPUL.NEB NEB SCH ×4 (01:26→19:21)
[2017-06-28] MEDS: ALBUTEROL FS 2.5 MG/0.5 ML VIAL.NEB NEB SCH ×4 (01:26→19:21)
[2017-06-28 05:22] LABS: INR 0.95 (0.87-1.13)
[2017-06-28 05:56] LABS: BASOPHILS % (AUTO) 0.4 % (0.0-2.0); EOSINOPHILS # (AUTO) 0.6 /CMM (0.0-0.7); EOSINOPHILS % (AUTO) 12.4 % (0.0-6.0); HEMATOCRIT 22 % (39-51); HEMOGLOBIN 7.6 g/dL (13.5-17.5); LYMPHOCYTES # (AUTO) 0.5 /CMM (0.8-4.8); LYMPHOCYTES % (AUTO) 11.4 % (20.0-44.0); MEAN CORPUSCULAR HEMOGLOBIN 32 PG (26.0-33.0); MEAN CORPUSCULAR HGB CONC 34 g/dl (31.0-36.0); MEAN CORPUSCULAR VOLUME 93 fL (80-96); MONOCYTES # (AUTO) 0.7 /CMM (0.1-1.30); MONOCYTES % (AUTO) 15.7 % (2.0-12.0); NEUTROPHILS # (AUTO) 2.8 /CMM (1.8-8.9); NEUTROPHILS % (AUTO) 60.1 % (43.0-81.0); PLATELET COUNT (AUTO) 245 /CMM (150-450); RDW COEFFICIENT OF VARIATION 18.5 (11.5-15.0); RED BLOOD CELL COUNT(AUTO) 2.38 MIL/uL (4.5-6.0); WHITE BLOOD COUNT (AUTO) 4.7 K/uL (4.3-11.0)
--- NOTE | 2017-06-28 06:43 | NUR ---
RN NOTE PT REMAINS IN NO ACUTE DISTRESS IN BED. PT IS TOLERATING COOL AEROSOL WELL WITH O2 SAT @ 94-96%. PT NOT SHOWING ANY S/S OF SOB, DIFFICULTY BREATHING OR PAIN AT THIS TIME. ALL NEEDS MET, ALL ORDERS CARRIED OUT. WILL ENDORSE CARE TO AM RN FOR CONTINUITY OF CARE.
[2017-06-28 06:56] LABS: CALCIUM, SERUM 8.3 mg/dL (8.5-10.1); CARBON DIOXIDE 33 mmol/L (21-32); CHLORIDE 105 mmol/L (98-107); CREATININE 1.9 mg/dL (0.6-1.3); GLUCOSE 105 mg/dL (74-106); POTASSIUM 4.3 mmol/L (3.5-5.1); SODIUM SERUM 144 mmol/L (136-145); UREA NITROGEN, BLOOD 52 mg/dL (7-18)
--- NOTE | 2017-06-28 07:30 | NUR ---
VETERINARY ASSISTANT TECHNICIAN INITIAL NOTES RECEIVED PATIENT SLEEPING IN BED, OPENS EYES, LETHARGIC, EXTREMITIES CONTRACTED, ON T PIECE 10 LPM ETT 12/05 AT THE LIP FIO2 40%, ON TELE MONITOR WITH SR WITH BBB 74 HR, FIBERSOURCE @ 60 ML/HR, IV RADHA MIDLINE AND LAC 20G, CLEAN AND PATENT, F/C TO GRAVITY DRAINING CLEAR YELLOW URINE, FLEXISEAL WITH LOOSE BROWN STOOL, AWAITING FAMILY TO SIGN CONSENT FOR TRACH PLACEMENT, NO ORDERS OF NPO FOR PROCEDURE AT THIS TIME, BED IN LOW AND LOCKED POSITION WILL CONTINUE TO MONITOR
[2017-06-28] MEDS: ACETYLCYSTEINE 10% SOLN 400 MG/4 ML VIAL NEB SCH ×3 (07:35→22:38)
[2017-06-28] MEDS: COLCHICINE 0.6 MG TABLET PO SCH (08:16)
[2017-06-28] MEDS: ASCORBIC ACID 500 MG TABLET PO SCH (08:16)
[2017-06-28] MEDS: PANTOPRAZOLE 40 MG/PACK PACK GT SCH ×2 (08:16→20:07)
[2017-06-28] MEDS: ZINC SULFATE 220 MG CAPSULE PO SCH (08:16)
[2017-06-28] MEDS: LEVETIRACETAM SOL (5 ML) 100 MG/ML UDC GT SCH ×2 (08:16→20:07)
[2017-06-28] MEDS: LEVOTHYROXINE SODIUM 75 MCG TABLET PO SCH (08:16)
[2017-06-28] MEDS: FERROUS SULFATE (325 MG) 325 MG/TAB TABLET PO SCH (08:16)
[2017-06-28] MEDS: FUROSEMIDE 20 MG/2 ML VIAL IV SCH (08:16)
[2017-06-28] MEDS: MULTIVITAMINS,THERAGRAN 1 UDTAB TABLET PO SCH (08:16)
[2017-06-28] MEDS: DOCUSATE SODIUM LIQ 100 MG/10 ML UDC GT SCH ×2 (08:17→16:29)
[2017-06-28] MEDS: CADEXOMER IODINE 40 GM TUBE TP SCH (08:19)
[2017-06-28 11:37] LABS: BAND % (MANUAL) 2 % (0.0-5.0); EOSINOPHILS % (MANUAL) 20 % (0-4); LYMPHOCYTES % (MANUAL) 6 % (16-48); MONOCYTES % (MANUAL) 16 % (0-11.0); NEUTROPHILS % (MANUAL) 56 (42-76)
--- NOTE | 2017-06-28 18:54 | NUR ---
DISABILITY LIAISON OFFICER NOTES PATIENT RESTING IN BED, NO SIGNS OF DISTRESS, CLEAN AND REPOSITIONED Q2H, CONSENT SIGNED FOR TRACH PLACEMENT, AWAITING MD CALL FOR DATE AND TIME, POSSIBLY TOMORROW. WILL ENDORSE TO DRIER AND PULVERIZER TENDER FOR CONTINUITY OF CARE.
--- NOTE | 2017-06-28 19:30 | NUR ---
RN INITIAL NOTES RECEIVED PATIENT IN BED, EYES CLOSED AT THIS TIME. PATIENT ORALLY INTUBATED, 7.0/22 @ LIP, ON COOL AEROSOL, FIO2 @ 40% AT THIS TIME, TOLERATING WELL, FREE FROM ANY S/S OF RESPIRATORY DISTRESS. GT PATENT AND INTACT, FLUSHED WITH WATER, AUSCULTATED FOR PLACEMENT. SAMANO CATHETER PATENT AND INTACT, DRAINING CLEAR YELLOW URINE TO BAG VIA GRAVITY. IV SITES PATENT AND INTACT, FLUSHED WITH NS, SALINE LOCKED. CONSENTS FOR TRACH PLACEMENT IN CHART, SIGNED. WILL CONTINUE TO CLOSELY MONITOR THE PATIENT
[2017-06-29] VITALS (25 sets, daily range): BP systolic 89–125; BP diastolic 44–65
[2017-06-29] MEDS: ALBUTEROL FS 2.5 MG/0.5 ML VIAL.NEB NEB SCH ×4 (00:39→18:56)
[2017-06-29] MEDS: IPRATROPIUM NEB FS 0.5 MG/2.5 ML AMPUL.NEB NEB SCH ×4 (00:39→18:56)
[2017-06-29] MEDS: FIBERSOURCE HN 1,000 ML BOTTLE GT PRN (03:06)
[2017-06-29 05:21] LABS: BASOPHILS % (AUTO) 0.1 % (0.0-2.0); EOSINOPHILS # (AUTO) 0.4 /CMM (0.0-0.7); EOSINOPHILS % (AUTO) 8.2 % (0.0-6.0); HEMATOCRIT 22 % (39-51); HEMOGLOBIN 7.6 g/dL (13.5-17.5); LYMPHOCYTES # (AUTO) 0.6 /CMM (0.8-4.8); LYMPHOCYTES % (AUTO) 10.2 % (20.0-44.0); MEAN CORPUSCULAR HEMOGLOBIN 35 PG (26.0-33.0); MEAN CORPUSCULAR HGB CONC 35 g/dl (31.0-36.0); MEAN CORPUSCULAR VOLUME 101 fL (80-96); MONOCYTES # (AUTO) 0.9 /CMM (0.1-1.30); MONOCYTES % (AUTO) 16.3 % (2.0-12.0); NEUTROPHILS # (AUTO) 3.5 /CMM (1.8-8.9); NEUTROPHILS % (AUTO) 65.2 % (43.0-81.0); PLATELET COUNT (AUTO) 258 /CMM (150-450); RDW COEFFICIENT OF VARIATION 18.4 (11.5-15.0); RED BLOOD CELL COUNT(AUTO) 2.17 MIL/uL (4.5-6.0); WHITE BLOOD COUNT (AUTO) 5.4 K/uL (4.3-11.0)
[2017-06-29 05:39] LABS: INR 0.9 (0.87-1.13)
[2017-06-29 05:51] LABS: CALCIUM, SERUM 8.4 mg/dL (8.5-10.1); CARBON DIOXIDE 32 mmol/L (21-32); CHLORIDE 104 mmol/L (98-107); CREATININE 1.8 mg/dL (0.6-1.3); GLUCOSE 105 mg/dL (74-106); MAGNESIUM 1.6 mg/dL (1.8-2.4); PHOSPHORUS 2.3 mg/dL (2.5-4.9); POTASSIUM 3.9 mmol/L (3.5-5.1); SODIUM SERUM 142 mmol/L (136-145); UREA NITROGEN, BLOOD 46 mg/dL (7-18)
--- NOTE | 2017-06-29 07:00 | NUR ---
RN NOTES PATIENT RESTING IN BED, APPEARS COMFORTABLE, NO S/S OF DISTRESS NOTED. PATIENT NOT ON SURGERY SCHEDULE, TUBE FEEDING REMAINS ON, TOLERATING WELL. WILL ENDORSE THE PATIENT TO THE AM SHIFT NURSE FOR BRYN
--- NOTE | 2017-06-29 07:30 | NUR ---
REFINISHER RECEIVED PATIENT AWAKE ON BED CONNECTED TO ET TUBE ON COOL AEROSOL @ 40% OPENS EYES SPONTANEOUSLY, NO TRACKING AFEBRILE THICK SECRETION UPON SUCTIONING, BROWNISH YELLOWISH IN COLOR FEEDING TUBE NO RESIDUAL NOTED CONTRACTED EXTREMITIES NOTED WITH SAMANO CATHETER CONNECTED TO YELLOWISH URINE, ADEQUAE IN AMOUNT WITH FLEXISEAL, SOFT STOOL, BROWN TO YELLOW IN COLOR
[2017-06-29] MEDS: ACETYLCYSTEINE 10% SOLN 400 MG/4 ML VIAL NEB SCH ×3 (07:35→23:20)
[2017-06-29] MEDS: LEVOTHYROXINE SODIUM 75 MCG TABLET PO SCH (07:44)
[2017-06-29] MEDS: FUROSEMIDE 20 MG/2 ML VIAL IV SCH (08:03)
[2017-06-29] MEDS: LEVETIRACETAM SOL (5 ML) 100 MG/ML UDC GT SCH ×2 (08:04→21:54)
[2017-06-29] MEDS: CADEXOMER IODINE 40 GM TUBE TP SCH (08:04)
[2017-06-29] MEDS: ZINC SULFATE 220 MG CAPSULE PO SCH (08:04)
[2017-06-29] MEDS: FERROUS SULFATE (325 MG) 325 MG/TAB TABLET PO SCH (08:04)
[2017-06-29] MEDS: MULTIVITAMINS,THERAGRAN 1 UDTAB TABLET PO SCH (08:04)
[2017-06-29] MEDS: PANTOPRAZOLE 40 MG/PACK PACK GT SCH ×2 (08:04→21:54)
[2017-06-29] MEDS: COLCHICINE 0.6 MG TABLET PO SCH (08:06)
[2017-06-29] MEDS: ASCORBIC ACID 500 MG TABLET PO SCH (08:06)
[2017-06-29] MEDS: DOCUSATE SODIUM LIQ 100 MG/10 ML UDC GT SCH ×2 (08:07→17:00)
[2017-06-29 09:48] LABS: ABG BASE EXCESS 4.2 mmol/L; ABG OXYGEN SATURATION 91.5 % (92.0-98.5); ABG PCO2 38.3 mmHg (35.0-45.0); ABG PH 7.481 (7.350-7.450); ABG PO2 64.1 mmHg (75.0-100.0); AaDO2 177.1 mmHg; COHb 0.1 % (0.5-1.5); MetHb 0.5 % (0.0-1.5); SITE, ABG Left Radial; VENT MODE, BG T-PIECE 40%
[2017-06-29] MEDS ORDERED: Magnesium 1GM/D5W 100ML PREMIX 100 ML IV SCH (11:06)
[2017-06-29] MEDS ORDERED: NEUTRA PHOS 1 POWD.PACKET NG ONE (13:00)
--- NOTE | 2017-06-29 19:30 | NUR ---
ELECTRIC ORGAN CHECKER S/W DR PERALES REGARDING TRACH PLACEMENT; PER DR PERALES HE HAD NOT BEEN NOTIFIED ABOUT TRACH PLACEMENT. STATES HE WILL PLACE TRACH TOMORROW MORNING.
[2017-06-30] VITALS (25 sets, daily range): BP systolic 88–109; BP diastolic 40–60
[2017-06-30] MEDS: ALBUTEROL FS 2.5 MG/0.5 ML VIAL.NEB NEB SCH ×4 (01:38→19:28)
[2017-06-30] MEDS: IPRATROPIUM NEB FS 0.5 MG/2.5 ML AMPUL.NEB NEB SCH ×4 (01:38→19:28)
--- NOTE | 2017-06-30 02:00 | NUR ---
ADMINISTRATION CLERK COMPETE BED BATH AND ORAL CARE RENDERED. PT TOLERATED WELL.
[2017-06-30 05:22] LABS: CALCIUM, SERUM 8.2 mg/dL (8.5-10.1); CARBON DIOXIDE 30 mmol/L (21-32); CHLORIDE 104 mmol/L (98-107); CREATININE 1.8 mg/dL (0.6-1.3); GLUCOSE 90 mg/dL (74-106); POTASSIUM 4.1 mmol/L (3.5-5.1); SODIUM SERUM 141 mmol/L (136-145); UREA NITROGEN, BLOOD 48 mg/dL (7-18)
--- NOTE | 2017-06-30 07:30 | NUR ---
COMBER TENDER RECEIVED PATIENT DROWSY, OPEN EYES TO PAIN AFEBRILE GT FEEDING HELD FOR POSSIBLE SURGERY TODAY AWAITING DOCTOR'S RESPONSE FOR TRACHEOSTOMY PLACEMENT MONITORED CLOSELY WITH SAMANO CATHETER DRAINING TO YELLOWISH URINE ADEQUATE IN AMOUNT
[2017-06-30] MEDS: ACETYLCYSTEINE 10% SOLN 400 MG/4 ML VIAL NEB SCH ×3 (07:31→23:13)
[2017-06-30] MEDS: LEVOTHYROXINE SODIUM 75 MCG TABLET PO SCH (07:34)
[2017-06-30] MEDS: LEVETIRACETAM SOL (5 ML) 100 MG/ML UDC GT SCH ×2 (09:00→21:11)
[2017-06-30] MEDS: DOCUSATE SODIUM LIQ 100 MG/10 ML UDC GT SCH ×2 (09:00→16:18)
[2017-06-30] MEDS: MULTIVITAMINS,THERAGRAN 1 UDTAB TABLET PO SCH (09:00)
[2017-06-30] MEDS: PANTOPRAZOLE 40 MG/PACK PACK GT SCH ×2 (09:00→21:11)
[2017-06-30] MEDS: ASCORBIC ACID 500 MG TABLET PO SCH (09:00)
[2017-06-30] MEDS: COLCHICINE 0.6 MG TABLET PO SCH (09:00)
[2017-06-30] MEDS: ZINC SULFATE 220 MG CAPSULE PO SCH (09:00)
[2017-06-30] MEDS: FERROUS SULFATE (325 MG) 325 MG/TAB TABLET PO SCH (09:00)
--- NOTE | 2017-06-30 09:00 | NUR ---
SULFUR CHLORIDE OPERATOR KETTLE GIRL CALLED UP DR. PERALES'S OFFICE TO CHECK IF HE WILL DO TRACHEOSTOMY PLACEMENT TODAY TRANSCRIPTION TYPIST SAID THAT DOCTOR LASHAUN COME BY AT 2 PM PATIENT IS STILL ON NPO
[2017-06-30] MEDS: CADEXOMER IODINE 40 GM TUBE TP SCH (09:10)
[2017-06-30] MEDS: FUROSEMIDE 20 MG/2 ML VIAL IV SCH (09:10)
--- NOTE | 2017-06-30 18:19 | NUR ---
DRIVER LICENSE TECHNICIAN DR. PERALES DID NOT COME TO SEE THE PATIENT AT 2 PM PER MASTER [employer]AT [employer]AKES'S ADVICE THAT HIS COMING IN AT 2 CALLED UP HIS OFFICE AT 4 PM TO FOLLOW UP WITH HIM BUT THE CALL GOT TRANSFERRED TO [place] OFFICE UNDER DR. MCCLELLAN WE DIDN'T GET RESPOND FROM THE OFFICE WELL WILL START FEEDING ANYTIME SINCE NO SCHEDULE YET FOR TRACHEOSTOMY PLACEMENT MONITORED CLOSELY ENDORSED TO NOD
[2017-06-30] MEDS: FIBERSOURCE HN 1,000 ML BOTTLE GT PRN (18:39)
--- NOTE | 2017-06-30 20:16 | NUR ---
received pt form day shift, alert, does not follows commands, drowsy, SR, 1 degree AV block, intubated on T tube at 40% fio2, sat well, lungs congested, no edema, GT to feeding tolerates well, f/c OK output, v/s stable, no pain, pt turned and repositioned.
[2017-06-30] MEDS ORDERED: ACETAMINOPHEN 650 MG/20.3 ML UDC NG PRN (22:30)
[2017-07-01] VITALS (24 sets, daily range): BP systolic 88–113; BP diastolic 37–69
--- NOTE | 2017-07-01 00:24 | NUR ---
pt is resting in the bed, v/s stable, no pain, tolerates feeding, pt turned and repositioned q2hrs.
[2017-07-01] MEDS: IPRATROPIUM NEB FS 0.5 MG/2.5 ML AMPUL.NEB NEB SCH ×4 (01:26→19:58)
[2017-07-01] MEDS: ALBUTEROL FS 2.5 MG/0.5 ML VIAL.NEB NEB SCH ×4 (01:26→19:58)
--- NOTE | 2017-07-01 04:19 | NUR ---
pt is resting in the bed, no acute distress overnight, SR, on T tube, sat well, tolerates feeding, v/s stable, no pain, pt cleaned, changed and repositioned q2hrs.
[2017-07-01] MEDS: ACETYLCYSTEINE 10% SOLN 400 MG/4 ML VIAL NEB SCH ×3 (07:35→23:22)
[2017-07-01] MEDS: ASCORBIC ACID 500 MG TABLET PO SCH (08:27)
[2017-07-01] MEDS: LEVETIRACETAM SOL (5 ML) 100 MG/ML UDC GT SCH ×2 (08:27→20:40)
[2017-07-01] MEDS: MULTIVITAMINS,THERAGRAN 1 UDTAB TABLET PO SCH (08:27)
[2017-07-01] MEDS: PANTOPRAZOLE 40 MG/PACK PACK GT SCH ×2 (08:27→20:40)
[2017-07-01] MEDS: DOCUSATE SODIUM LIQ 100 MG/10 ML UDC GT SCH ×2 (08:27→17:38)
[2017-07-01] MEDS: LEVOTHYROXINE SODIUM 75 MCG TABLET PO SCH (08:27)
[2017-07-01] MEDS: ZINC SULFATE 220 MG CAPSULE PO SCH (08:28)
[2017-07-01] MEDS: FERROUS SULFATE (325 MG) 325 MG/TAB TABLET PO SCH (08:28)
[2017-07-01] MEDS: COLCHICINE 0.6 MG TABLET PO SCH (08:28)
[2017-07-01] MEDS: FUROSEMIDE 20 MG/2 ML VIAL IV SCH (08:28)
[2017-07-01] MEDS: CADEXOMER IODINE 40 GM TUBE TP SCH (08:32)
--- NOTE | 2017-07-01 10:15 | NUR ---
RN NOTE RN CONTACTED MD SCHAEFFER OFFICE TO CANCEL TRACHEOSTOMY PROCEDURE , RN SPOKE WITH SAE CHAVEZ INFORMED THAT THIS HAS BEEN COMPLETED , RN PLACED ORDER FOR CONSULT WITH MD EUGENE FOR PLACEMENT OF TRACH , CHARGE NURSE AWARE , RN WILL CONTINUE TO FOLLOW
[2017-07-01] MEDS ORDERED: LIDOCAINE 2% 20 ML MDV TP ONE (12:30)
[2017-07-01] MEDS ORDERED: SILVER NITRATE APPLICATOR 1 EA BOX TP ONE (12:30)
[2017-07-01] MEDS: FIBERSOURCE HN 1,000 ML BOTTLE GT PRN (14:16)
--- NOTE | 2017-07-01 14:33 | NUR ---
RN NOTE RN SPOKE WITH MD HUYNH IN REGARDS TO DEBRIDEMENT CONSENT . RN ATTEMPTED 2 TIME TO CONTACT AND DAUGHTER IN REGARDS TO OBTAINING CONSENT ORDER , CHARGE NURSE NOTIFIED IN REGARDS TO CONSENT ORDER NOT BEING SIGNED
[2017-07-01] MEDS ORDERED: LIDOCAINE 1%-EPI 1:100,000 20 ML VIAL TP ONE (15:00)
--- NOTE | 2017-07-01 15:30 | NUR ---
RN NOTE RN ENDORSED CARE TO IRASEMA [facility]ED[facility] ICU FOR CONTINUATION OF CARE. CONSENT FOR DEBRIDEMENT OBTAINED AND VERIFIED VIA 2 RN WITNESSES.
[2017-07-01] MEDS: HYDROCODONE/APAP 5/325MG 1 EACH TABLET PO PRN (17:45)
--- NOTE | 2017-07-01 17:48 | NUR ---
RESPIRATORY CARE PRACTITIONER NOTE 1530: Received patient from Toya QUEVEDO for BRYN, patient with ETT to cool aerosol, tolerated. No respiratory distress noted, O2 sat 97%. With GT intact, feeding tolerated. Kept HOB elevated. No residuals at this time. On [employer] mattress. With Corbin cath intact, noted with minimal to moderate bora colored urine drained to BSD. RADHA midline intact. RFA PIV intact. Awaiting Dr. Mike for sacral wound debridement. Previous RN spoke with daughter re: sacral wound debridement. 1610: Sacral decub debridement done by Dr. Mike and Betty AUTOMOTIVE UPHOLSTERER at bedside. Patient tolerated procedure. Cleaned patient, noted with 1 soft brown BM. 1630: Dr. Clements S/E both feet multiple redness/DTI, with order to apply Mepilex and offload. Taken pictures and attached to chart. 1730: Noted patient with RR >35. 1745: [place]ster given as ordered for high RR, might be pain from SP debridement, will continue to monitor.
[2017-07-01] MEDS: DAKINS QUARTER STRENGTH (0.125%) 480 ML BOTTLE TOP SCH (19:15)
--- NOTE | 2017-07-01 20:15 | NUR ---
received pt from day shift, drowsy, does not follow commands, SR, 1 degree av block, on T tube intubated, sat well, lungs congested, no edema, GT to feeding, tolerates well, f/c OK output, v/s stable, no pain pt turned and repositioned.
[2017-07-02] VITALS (34 sets, daily range): BP systolic 79–109; BP diastolic 44–63
--- NOTE | 2017-07-02 00:17 | NUR ---
pt is resting in the bed, v/s stable, no pain, pt turned and repositioned q2hrs.
[2017-07-02] MEDS: IPRATROPIUM NEB FS 0.5 MG/2.5 ML AMPUL.NEB NEB SCH ×4 (01:19→19:24)
[2017-07-02] MEDS: ALBUTEROL FS 2.5 MG/0.5 ML VIAL.NEB NEB SCH ×4 (01:19→19:24)
--- NOTE | 2017-07-02 04:17 | NUR ---
pt is resting in the bed, no acute distress overnight, SR, tolerates feeding, v/s stable, no pain, pt cleaned, changed and repositioned q2hrs, off of feeding since 07/02/[address] Mota.
[2017-07-02] MEDS: DAKINS QUARTER STRENGTH (0.125%) 480 ML BOTTLE TOP SCH ×2 (04:31→17:25)
[2017-07-02] MEDS: ACETYLCYSTEINE 10% SOLN 400 MG/4 ML VIAL NEB SCH ×3 (07:25→22:49)
[2017-07-02] MEDS: LEVOTHYROXINE SODIUM 75 MCG TABLET PO SCH (07:27)
[2017-07-02 08:37] LABS: ABG BASE EXCESS 5.3 mmol/L; ABG OXYGEN SATURATION 89.6 % (92.0-98.5); ABG PCO2 43.7 mmHg (35.0-45.0); ABG PH 7.452 (7.350-7.450); ABG PO2 57.3 mmHg (75.0-100.0); AaDO2 90.8 mmHg; COHb 0.2 % (0.5-1.5); MetHb 0.1 % (0.0-1.5); O2Hb 89.3 % (94.0-97.0); SITE, ABG Right Radial; VENT MODE, BG T-TUBE
[2017-07-02 08:55] LABS: BASOPHILS % (AUTO) 0.5 % (0.0-2.0); EOSINOPHILS # (AUTO) 0.3 /CMM (0.0-0.7); HEMATOCRIT 24 % (39-51); LYMPHOCYTES # (AUTO) 0.9 /CMM (0.8-4.8); LYMPHOCYTES % (AUTO) 15.4 % (20.0-44.0); MEAN CORPUSCULAR HEMOGLOBIN 32 PG (26.0-33.0); MEAN CORPUSCULAR HGB CONC 34 g/dl (31.0-36.0); MEAN CORPUSCULAR VOLUME 96 fL (80-96); MONOCYTES # (AUTO) 0.9 /CMM (0.1-1.30); MONOCYTES % (AUTO) 15.9 % (2.0-12.0); NEUTROPHILS # (AUTO) 3.6 /CMM (1.8-8.9); NEUTROPHILS % (AUTO) 62.2 % (43.0-81.0); PLATELET COUNT (AUTO) 268 /CMM (150-450); RDW COEFFICIENT OF VARIATION 17.7 (11.5-15.0); RED BLOOD CELL COUNT(AUTO) 2.51 MIL/uL (4.5-6.0); WHITE BLOOD COUNT (AUTO) 5.7 K/uL (4.3-11.0)
[2017-07-02] MEDS: COLCHICINE 0.6 MG TABLET PO SCH (09:00)
[2017-07-02] MEDS: PANTOPRAZOLE 40 MG/PACK PACK GT SCH ×2 (09:00→21:12)
[2017-07-02] MEDS: FUROSEMIDE 20 MG/2 ML VIAL IV SCH (09:00)
[2017-07-02] MEDS: ASCORBIC ACID 500 MG TABLET PO SCH (09:00)
[2017-07-02] MEDS: DOCUSATE SODIUM LIQ 100 MG/10 ML UDC GT SCH ×2 (09:00→17:25)
[2017-07-02] MEDS: MULTIVITAMINS,THERAGRAN 1 UDTAB TABLET PO SCH (09:00)
[2017-07-02] MEDS: ZINC SULFATE 220 MG CAPSULE PO SCH (09:00)
[2017-07-02] MEDS: FERROUS SULFATE (325 MG) 325 MG/TAB TABLET PO SCH (09:00)
[2017-07-02 09:06] LABS: CALCIUM, SERUM 8.7 mg/dL (8.5-10.1); CARBON DIOXIDE 30 mmol/L (21-32); CHLORIDE 107 mmol/L (98-107); CREATININE 2.1 mg/dL (0.6-1.3); GLUCOSE 92 mg/dL (74-106); POTASSIUM 4.5 mmol/L (3.5-5.1); SODIUM SERUM 145 mmol/L (136-145); UREA NITROGEN, BLOOD 64 mg/dL (7-18)
[2017-07-02 09:54] LABS: INR 0.96 (0.87-1.13)
--- NOTE | 2017-07-02 11:00 | NUR ---
RN NOTE RECEIVE PT ON BED, OBTUNDED, RESPONDS TO PAINFUL STIMULI, ETT TUBE TO COOL AEROSOL, AT 40%, O2 SAT 93%, ON TELE SR WITH FIRST DEGREE AVB, , HR IN 70'S , SAMANO DRAINING TO GRAVITY WITH YELLOW URINE, TF ON HOLD AT THIS TIME, NPO, FOR TRACH PLACEMENT LATER TODAY . L UPPER RM MIDLINE AND R FA IV SITE G 20, SITES CDI, SR UP x3, CALL LIGHTS WITHIN EASY REACH, BED LOCKED AND IN LOWEST POSITION , WILL CONTINUE TO MONITOR PT CLOSELY.
--- NOTE | 2017-07-02 11:25 | NUR ---
SURVIVAL EQUIPMENT REPAIRER NOTE 0720: Received patient lethargic, responds to light pain, unable to follow commands. With ETT to cool aerosol 40%, sat 97%. Noted with minimal to moderate thick secretions when suctioned. With GT intact, feeding on hold for trache placement prep. SR with 1 degree AV block 90's on the monitor. 0900: Held /GT meds for prep for traceh placement. 1100: at bedside, aware for the POC, all questions and concerns were answered. 1120: Endorsed patient to Narda QUEVEDO for BRYN. No any significant changes noted at this time.
[2017-07-02] MEDS: LEVETIRACETAM SOL (5 ML) 100 MG/ML UDC GT SCH ×2 (14:00→21:12)
[2017-07-02] MEDS ORDERED: LIDOCAINE 1%-EPI 1:100,000 20 ML VIAL ONE (15:37)
--- NOTE | 2017-07-02 16:00 | NUR ---
RN NOTES PT GOING TO OR AT THIS TIME FOR TRACHEOSTOMY PLACEMENT . VSS STABLE .
[2017-07-02] MEDS ORDERED: MIDAZOLAM HCL 2 MG/2ML VIAL ONE (16:12)
[2017-07-02] MEDS ORDERED: FENTANYL PF 100MCG/2ML AMPUL ONE (16:12)
--- NOTE | 2017-07-02 17:00 | NUR ---
RN NOTES PT BACK TO ROOM FROM RECOVERY , VSS STABLE , TRACH /VENT DEPENDENT AT THIS TIME ON SIMV MODE, TRACH SUCTIONING DONE, NO COMPLICATION NOTED AT THE TRACH SITE , O2 SAT 92%, AT THE BEDSIDE, CONTINUE TO MONITOR VSS CLSOELY.
--- NOTE | 2017-07-02 17:06 | NUR ---
RT NOTE PT PLACED ON SIMV MODE, RR12, VT450, PS12 40% FIO2 PER MD ORDER, POST TRACH INSERTION, PT ON A SunFunderLEY 8. AMBUBAG AT BEDSIDE, VENT PLUGGED INTO RED OUTLET, ALARMS ON AND AUDIBLE, PER PROTOCOL. PT STABLE WILL MONITOR CLOSELY Addendum: 07/02/17 at 1708 by SUNDEEP EDWARD RT Amended: Links added.
[2017-07-02] MEDS: FIBERSOURCE HN 1,000 ML BOTTLE GT PRN (17:25)
--- NOTE | 2017-07-02 18:30 | NUR ---
RN NOTES RESPIRATION EVEN AND UNBONDED , O2 SAT 97%, TOLERATING VENT SETTING WELL. TRACH SITE CLEAN AND DRY , HR IN 90'S SR WITH FIRST DEGREE AVB, SAMANO DRAINING TO GRAVITY , TF FIBERSOURCE AT 60CC/HR RUNNING VIA GT, TOLERATING WELL, L UPPER ARM MIDLINE CDI. SR UP x3, CALL LIGHT WITHIN EASY REACH, WILL ENDORSE TO PIG IRON LOADER NURSE FOR BRYN .
--- NOTE | 2017-07-02 19:41 | NUR ---
ICU/RN RECEIVED PT. ON VENT PER TRACH,SAT.OF 100% ON 40% FI02,MONITOR SHOWS SINU RHYTHM W/ IST DEGREE AVB.PT OBTUNDED,RESPONDS TO DEEP STERNAL STIMULI BY PARTIALLY OPENING EYES.
[2017-07-03] VITALS (14 sets, daily range): BP systolic 94–115; BP diastolic 53–68
--- NOTE | 2017-07-03 | NUR ---
ICU/RN SUCTIONED FOR SCANT AMT.THIN-THINK PINK TINGED SECRETIONS.VITAL SIGNS STABLE.AFEBRILE.REPOSITIONED AND TURNED.
[2017-07-03] MEDS: IPRATROPIUM NEB FS 0.5 MG/2.5 ML AMPUL.NEB NEB SCH ×4 (00:44→19:07)
[2017-07-03] MEDS: ALBUTEROL FS 2.5 MG/0.5 ML VIAL.NEB NEB SCH ×4 (00:44→19:07)
--- NOTE | 2017-07-03 03:30 | NUR ---
ICU'RN COMPLETE BED BATH GIVEN WOUND CARE TO SACRUM AND BUTTOCKS ORDERED.CONDITION UNCHANGED.TOLERATING TUBE FEEDING WELL.URINE OUTPUTBARELY ADEQUATE..
[2017-07-03] MEDS: DAKINS QUARTER STRENGTH (0.125%) 480 ML BOTTLE TOP SCH ×2 (03:57→17:00)
--- NOTE | 2017-07-03 05:30 | NUR ---
ICU/RN REPORT AND CARE OF PT. GIVEN TO KASSIDY QUEVEDO IN [place].
--- NOTE | 2017-07-03 06:58 | NUR ---
ICU/RN UNABLE TO TRANSFER PT AT THIS TIME.
[2017-07-03] MEDS: ACETYLCYSTEINE 10% SOLN 400 MG/4 ML VIAL NEB SCH ×3 (07:35→23:07)
--- NOTE | 2017-07-03 07:36 | NUR ---
RN NOTES RECEIVED PT FROM ICU, VENT/TRACH DEPENDENT, NONVERBAL, TOLERATING VENT SETTINGS NO SOB OR DISTRESS NOTED. SR ON THE TELE MARLEY. SAMANO DRAINING TO GRAVITY. RADHA MIDLINE INTACT NO IVF. GTF AT 60ML/HR. BED LOCKED AND IN LOWEST POSITION, SIDE RAILS UPX3, WILL CONT TO MARLEY.
[2017-07-03] MEDS: FUROSEMIDE 20 MG/2 ML VIAL IV SCH (08:17)
[2017-07-03] MEDS: ZINC SULFATE 220 MG CAPSULE PO SCH (08:17)
[2017-07-03] MEDS: MULTIVITAMINS,THERAGRAN 1 UDTAB TABLET PO SCH (08:17)
[2017-07-03] MEDS: ASCORBIC ACID 500 MG TABLET PO SCH (08:17)
[2017-07-03] MEDS: PANTOPRAZOLE 40 MG/PACK PACK GT SCH ×2 (08:17→22:17)
[2017-07-03] MEDS: DOCUSATE SODIUM LIQ 100 MG/10 ML UDC GT SCH ×2 (08:17→17:00)
[2017-07-03] MEDS: FERROUS SULFATE (325 MG) 325 MG/TAB TABLET PO SCH (08:17)
[2017-07-03] MEDS: LEVETIRACETAM SOL (5 ML) 100 MG/ML UDC GT SCH ×2 (08:17→22:17)
[2017-07-03] MEDS: LEVOTHYROXINE SODIUM 75 MCG TABLET PO SCH (08:18)
[2017-07-03] MEDS: COLCHICINE 0.6 MG TABLET PO SCH (09:00)
--- NOTE | 2017-07-03 09:03 | NUR ---
PLACED INTO COOL AEROSOL @ 40% FIO2 ORDER. SPO2 98% HR 96 Addendum: 07/03/17 at 0904 by SABIHA KHAN RT Amended: Links added.
[2017-07-03 10:37] LABS: ABG BASE EXCESS 4.5 mmol/L; ABG OXYGEN SATURATION 89.5 % (92.0-98.5); ABG PCO2 37.9 mmHg (35.0-45.0); ABG PH 7.489 (7.350-7.450); ABG PO2 58.2 mmHg (75.0-100.0); AaDO2 183.4 mmHg; O2Hb 88.6 % (94.0-97.0); SITE, ABG Right Radial; VENT MODE, BG cool aerosol @ 40%
--- NOTE | 2017-07-03 18:43 | NUR ---
RN NOTES PT REMAINED IN STABLE CONDITION THROUGHOUT THE SHIFT, TOLERATING COOL AEROSOL, O2 SAT HIGH 90S. ALL NEEDS MET. NO SIGNIFICANT CHANGES NOTED. WILL ENDORSE TO ONCOMING SHIFT.
--- NOTE | 2017-07-03 20:17 | NUR ---
RN NOTES RECEIVED PATIENT IN BED WITH NO RESPIRATORY DISTRESS OR SHORTNESS OF BREATH. BREATHING EVEN AND UNLABORED. COOL AEROSOL WELL TOLERATED. SUCTIONED MODERATE TO LARGE AMOUNT OF SEMI LOOSE YELLOWISH SECRETION. OBTUNDED. NO PHYSICAL MANIFESTATION OF PAIN OR DISCOMFORT. VITAL SIGNS WNL. WILL CONTINUE TO MONITOR.
[2017-07-04] VITALS: BP 99/56
[2017-07-04] MEDS: ALBUTEROL FS 2.5 MG/0.5 ML VIAL.NEB NEB SCH ×4 (01:41→19:34)
[2017-07-04] MEDS: IPRATROPIUM NEB FS 0.5 MG/2.5 ML AMPUL.NEB NEB SCH ×4 (01:41→19:34)
[2017-07-04 04:00] VITALS: BP 115/59
[2017-07-04] MEDS: DAKINS QUARTER STRENGTH (0.125%) 480 ML BOTTLE TOP SCH ×2 (05:24→17:30)
--- NOTE | 2017-07-04 06:11 | NUR ---
RN CLOSING NOTES NO SIGNIFICANT CHANGE OF CONDITION. NO SIGN OR SYMPTOM OF PAIN OR DISCOMMFORT. VITAL SIGNS WNL. COOL AEROSOL WELL TOLERATED. FC PATENT AND INTACT DRAINING CLEAR YELLOW WITH NO FOLLOW. WILL ENDORSE TO AM SHIFT FOR CONTINUITY OF CARE.
[2017-07-04 06:39] LABS: BASOPHILS % (AUTO) 0.2 % (0.0-2.0); EOSINOPHILS # (AUTO) 0.3 /CMM (0.0-0.7); EOSINOPHILS % (AUTO) 2.8 % (0.0-6.0); HEMATOCRIT 26 % (39-51); HEMOGLOBIN 8.9 g/dL (13.5-17.5); LYMPHOCYTES # (AUTO) 0.8 /CMM (0.8-4.8); LYMPHOCYTES % (AUTO) 6.5 % (20.0-44.0); MEAN CORPUSCULAR HEMOGLOBIN 33 PG (26.0-33.0); MEAN CORPUSCULAR HGB CONC 34 g/dl (31.0-36.0); MEAN CORPUSCULAR VOLUME 99 fL (80-96); MONOCYTES # (AUTO) 1.2 /CMM (0.1-1.30); MONOCYTES % (AUTO) 10.3 % (2.0-12.0); NEUTROPHILS # (AUTO) 9.4 /CMM (1.8-8.9); NEUTROPHILS % (AUTO) 80.2 % (43.0-81.0); PLATELET COUNT (AUTO) 230 /CMM (150-450); RDW COEFFICIENT OF VARIATION 18.1 (11.5-15.0); RED BLOOD CELL COUNT(AUTO) 2.67 MIL/uL (4.5-6.0); WHITE BLOOD COUNT (AUTO) 11.8 K/uL (4.3-11.0)
[2017-07-04 06:48] LABS: ALANINE AMINOTRANSFERASE 7 U/L (12-78); ALBUMIN 1.5 g/dL (3.4-5.0); ALKALINE PHOSPHATASE 130 U/L (46-116); ASPARTATE AMINOTRANSFERASE 27 U/L (15-37); BILIRUBIN,TOTAL 0.2 mg/dL (0.2-1.0); CALCIUM, SERUM 8.9 mg/dL (8.5-10.1); CARBON DIOXIDE 28 mmol/L (21-32); CHLORIDE 107 mmol/L (98-107); CREATININE 2.1 mg/dL (0.6-1.3); GLUCOSE 118 mg/dL (74-106); MAGNESIUM 2.1 mg/dL (1.8-2.4); PHOSPHORUS 3.7 mg/dL (2.5-4.9); POTASSIUM 4.5 mmol/L (3.5-5.1); SODIUM SERUM 144 mmol/L (136-145); TOTAL PROTEIN, SERUM 6.8 g/dL (6.4-8.2); UREA NITROGEN, BLOOD 58 mg/dL (7-18)
--- NOTE | 2017-07-04 07:12 | NUR ---
RN INITIAL NOTES: REC'D PT ON BED, NOT IN ANY DISTRESS, OBTUNDED. ON COOL AEROSOL VIA TRACH, SATING AT 98%. ON TELEMONITOR, ST W/ HR 104 BPM. HAS GT PATENT & INTACT ON CONT TUBE FEEDING FIBERSOURCE X 60 CC/HR INFUSING WELL. HAS RADHA MIDLINE PATENT & INTACT W/ NO S/SX OF INFECTION/INFILTRATION NOTED. RFA G20, NOTED INFILTRATED, WAS REMOVED. HAS FC PATENT & INTACT. PROVIDED COMFORT & SAFETY MEASURES. BED KEPT LOW & IN LOCKED POS. CALL LIGHT PLACED W/IN REACH. WILL CONTINUE TO MONITOR & ATTEND PT NEEDS.
[2017-07-04] MEDS: ACETYLCYSTEINE 10% SOLN 400 MG/4 ML VIAL NEB SCH ×3 (07:35→23:30)
[2017-07-04 08:00] VITALS: BP_SYST 12; BP_SYST 121; BP_DIAS 100; BP_DIAS 60
[2017-07-04] MEDS: FERROUS SULFATE (325 MG) 325 MG/TAB TABLET PO SCH (08:28)
[2017-07-04] MEDS: COLCHICINE 0.6 MG TABLET PO SCH (08:28)
[2017-07-04] MEDS: ZINC SULFATE 220 MG CAPSULE PO SCH (08:28)
[2017-07-04] MEDS: LEVETIRACETAM SOL (5 ML) 100 MG/ML UDC GT SCH ×2 (08:28→20:54)
[2017-07-04] MEDS: LEVOTHYROXINE SODIUM 75 MCG TABLET PO SCH (08:28)
[2017-07-04] MEDS: DOCUSATE SODIUM LIQ 100 MG/10 ML UDC GT SCH ×2 (08:28→17:29)
[2017-07-04] MEDS: PANTOPRAZOLE 40 MG/PACK PACK GT SCH ×2 (08:28→20:54)
[2017-07-04] MEDS: ASCORBIC ACID 500 MG TABLET PO SCH (08:28)
[2017-07-04] MEDS: MULTIVITAMINS,THERAGRAN 1 UDTAB TABLET PO SCH (08:28)
[2017-07-04] MEDS: FUROSEMIDE 20 MG/2 ML VIAL IV SCH (08:28)
[2017-07-04] MEDS: Z GUARD REMEDY 2 OZ OINT TP PRN (08:29)
[2017-07-04 12:00] VITALS: BP 105/57
--- NOTE | 2017-07-04 13:00 | NUR ---
RN NOTES: PT SEEN & EXAMINED BY DR. VILLARREAL W/ ORDERS MADE & CARRIED OUT.
[2017-07-04 13:18] LABS: BASOPHILS % (AUTO) 0.3 % (0.0-2.0); EOSINOPHILS # (AUTO) 0.2 /CMM (0.0-0.7); HEMATOCRIT 24 % (39-51); HEMOGLOBIN 7.6 g/dL (13.5-17.5); LYMPHOCYTES # (AUTO) 0.6 /CMM (0.8-4.8); LYMPHOCYTES % (AUTO) 5.8 % (20.0-44.0); MEAN CORPUSCULAR HEMOGLOBIN 29 PG (26.0-33.0); MEAN CORPUSCULAR HGB CONC 32 g/dl (31.0-36.0); MEAN CORPUSCULAR VOLUME 89 fL (80-96); MONOCYTES # (AUTO) 1.5 /CMM (0.1-1.30); MONOCYTES % (AUTO) 13.5 % (2.0-12.0); NEUTROPHILS # (AUTO) 8.5 /CMM (1.8-8.9); NEUTROPHILS % (AUTO) 78.4 % (43.0-81.0); PLATELET COUNT (AUTO) 340 /CMM (150-450); RDW COEFFICIENT OF VARIATION 17.5 (11.5-15.0); RED BLOOD CELL COUNT(AUTO) 2.63 MIL/uL (4.5-6.0); WHITE BLOOD COUNT (AUTO) 10.9 K/uL (4.3-11.0)
[2017-07-04 14:50] LABS: APPEARANCE,URINE SL CLOUDY (CLEAR); BILIRUBIN,URINE NEGATIVE (NEGATIVE); BLOOD, URINE 2+ Ery/uL (NEGATIVE); COLOR,URINE YELLOW (YELLOW); KETONES,URINE NEGATIVE (NEGATIVE); LEUKOCYTE ESTERASE ,URINE 3+ (NEGATIVE); NITRITE, URINE NEGATIVE (NEGATIVE); PH,URINE 7.5 (5.0-8.0); PROTEIN,URINE 1+ mg/dl (NEGATIVE); UGLUCOSE NEGATIVE (NEGATIVE); UROBILINOGEN,URINE 0.2 EU/dL (0.2)
[2017-07-04 15:16] LABS: BACTERIA,URINE 4+ /HPF (None Seen)
[2017-07-04 15:17] LABS: SQUAMOUS EPITHELIAL CELL,UR 0-2 /HPF (None Seen)
[2017-07-04 16:00] VITALS: BP 92/42
[2017-07-04] MEDS: FIBERSOURCE HN 1,000 ML BOTTLE GT PRN (17:29)
--- NOTE | 2017-07-04 18:39 | NUR ---
RN CLOSING NOTES: NO ACUTE CHANGES NOTED W/IN SHIFT. PT TOLERATED COOL AEROSOL VIA TRACH. ON TELEMONITOR, STILL ST. GT KEPT PATENT & INTACT ON CONT TUBE FEEDING FIBERSOURCE X 60 CC/HR TOLERATED WELL, NO HIGH RESIDUAL NOTED. RADHA MIDLINE KEPT PATENT & INTACT W/ NO S/SX OF INFECTION/INFILTRATION NOTED. FC KEPT PATENT & INTACT. WOUND CARE DONE. PT TURNED & REPOSITIONED. KEPT WELL RESTED. NEEDS ATTENDED. BED KEPT LOW & IN LOCKED POS. CALL LIGHT PLACED W/IN REACH. WILL ENDORSE TO PM RN FOR BRYN.
--- NOTE | 2017-07-04 19:30 | NUR ---
ADVERTISING REP NOTES, RECEIVED PATIENT IN BED ALERT ALERT AND ORIENTED, ABLE TO LET NEEDS KNOW, MOUTH WORDS, ON VENT SETTINGS, NO SOB/ACUTE DISTRESS NOTED AT THIS TIME, NOTED DRY AND CLEAN, BED IN LOWEST POSITION, QUINTEN MIDLINE INTACT AND PATENT, IVF RUNNING WELL AND PATIENT TOLERATED WELL, NO S/S OF INFILTRATION NOTED AT THIS TIME, GTF ON HOLD AT THIS TIME DUE TO EPISODES OF VOMITING, NO EPISODES NOTED AT THIS TIME, WILL RESTART ORDERED AND WILL CONTINUE TO MONITOR AND ADMINISTER ZOFRAN ORDERED, F/C IN PLACE DRAINING YELLOW URINE, NO HEMATURIA NOTED AT THIS TIME, CALL LIGHT W/I REACH, WILL CONTINUE TO MONITOR CLOSELY. Addendum: 07/04/17 at 2040 by MELISSA HERRERA RN ADVERTISING REP NOTES, RECEIVED PATIENT IN BED, OBTUNDED, UNABLE TO VERBALIZED NEED AND CONCERNS, ON TPC NO SOB/ACUTE DISTRESS NOTED, BREATHING EVEN AND UNLABORED, OXYGEN SATURATION AT 100% AT THIS JORGE, NO FACIAL GRIMACING OR DISCOMFORT NOTED AT THIS TIME, ABDOMEN SOFT AND NON DISTENDED, GT IN PLACE AND GTF RUNNING WELL AND PATIENT TOLERATED WELL, SL GAUGE #20 OM RFA, AND MIDLINE IN RADHA INTACT AND PATENT SL, NOTED DRY AND CLEAN, BED LOCKED AND IN LOWEST POSITION, MICHELLE LIGHT W/I REACH, WILL CONTINUE TO MONITOR CLOSELY.
[2017-07-04 20:00] VITALS: BP 90/43
[2017-07-05] VITALS (8 sets, daily range): BP systolic 87–115; BP diastolic 44–69
[2017-07-05] MEDS: IPRATROPIUM NEB FS 0.5 MG/2.5 ML AMPUL.NEB NEB SCH ×4 (01:21→20:00)
[2017-07-05] MEDS: ALBUTEROL FS 2.5 MG/0.5 ML VIAL.NEB NEB SCH ×4 (01:21→20:00)
[2017-07-05] MEDS ORDERED: IV NS 0.9% 500 ML BAG IV ONE (01:30)
[2017-07-05] MEDS: DAKINS QUARTER STRENGTH (0.125%) 480 ML BOTTLE TOP SCH ×2 (05:31→16:23)
--- NOTE | 2017-07-05 06:20 | NUR ---
RN CLOSING NOTES, PATIENT IN BED, ON COOL AEROSOL AT 30% AT THIS TIME, NO SOB/ACUTE DISTRESS NOTES AT THIS TIME, NO9 EPISODES OF HYPOTENSION, AFTER BOLUS ADMINISTERED, SBP ABOVE 100, AFEBRILE AT THIS TIME, FC/ DRAINING YELLOW CLOUDY URINE, DRY AND CLEAN, AND WELL REPOSITIONED, BED LOCKED AND IN LOWEST POSITION, CALL LIGHT W/W REACH, WILL ENDORSE CONTINUITY OF CARE TO NEXT ONCOMING NURSE.
[2017-07-05 06:57] LABS: BASOPHILS % (AUTO) 0.5 % (0.0-2.0); EOSINOPHILS # (AUTO) 0.3 /CMM (0.0-0.7); HEMATOCRIT 24 % (39-51); HEMOGLOBIN 8.2 g/dL (13.5-17.5); LYMPHOCYTES # (AUTO) 0.8 /CMM (0.8-4.8); MEAN CORPUSCULAR HEMOGLOBIN 34 PG (26.0-33.0); MEAN CORPUSCULAR HGB CONC 34 g/dl (31.0-36.0); MEAN CORPUSCULAR VOLUME 100 fL (80-96); MONOCYTES # (AUTO) 1.3 /CMM (0.1-1.30); MONOCYTES % (AUTO) 14.2 % (2.0-12.0); NEUTROPHILS % (AUTO) 74.3 % (43.0-81.0); PLATELET COUNT (AUTO) 330 /CMM (150-450); RDW COEFFICIENT OF VARIATION 18.2 (11.5-15.0); WHITE BLOOD COUNT (AUTO) 9.4 K/uL (4.3-11.0)
[2017-07-05] MEDS: ACETYLCYSTEINE 10% SOLN 400 MG/4 ML VIAL NEB SCH ×3 (07:25→23:30)
--- NOTE | 2017-07-05 07:35 | NUR ---
MS/RN Patient received Patient received from shift commander. Trach to cool aerosol, saturation >95%, vital signs stable. Call light within reach, will continue to monitor.
[2017-07-05 07:45] LABS: CALCIUM, SERUM 8.8 mg/dL (8.5-10.1); CARBON DIOXIDE 31 mmol/L (21-32); CHLORIDE 110 mmol/L (98-107); CREATININE 2.3 mg/dL (0.6-1.3); GLUCOSE 111 mg/dL (74-106); MAGNESIUM 2.1 mg/dL (1.8-2.4); PHOSPHORUS 3.9 mg/dL (2.5-4.9); POTASSIUM 4.2 mmol/L (3.5-5.1); SODIUM SERUM 147 mmol/L (136-145); UREA NITROGEN, BLOOD 59 mg/dL (7-18)
[2017-07-05] MEDS: LEVETIRACETAM SOL (5 ML) 100 MG/ML UDC GT SCH ×2 (08:19→20:31)
[2017-07-05] MEDS: ASCORBIC ACID 500 MG TABLET PO SCH (08:19)
[2017-07-05] MEDS: DOCUSATE SODIUM LIQ 100 MG/10 ML UDC GT SCH ×2 (08:19→16:22)
[2017-07-05] MEDS: LEVOTHYROXINE SODIUM 75 MCG TABLET PO SCH (08:20)
[2017-07-05] MEDS: MULTIVITAMINS,THERAGRAN 1 UDTAB TABLET PO SCH (08:20)
[2017-07-05] MEDS: FERROUS SULFATE (325 MG) 325 MG/TAB TABLET PO SCH (08:20)
[2017-07-05] MEDS: COLCHICINE 0.6 MG TABLET PO SCH (08:20)
[2017-07-05] MEDS: FUROSEMIDE 20 MG/2 ML VIAL IV SCH (08:20)
[2017-07-05] MEDS: PANTOPRAZOLE 40 MG/PACK PACK GT SCH ×2 (08:20→20:32)
[2017-07-05] MEDS: ZINC SULFATE 220 MG CAPSULE PO SCH (08:20)
--- NOTE | 2017-07-05 09:00 | NUR ---
MS/RN Medications Morning medications administered via GT, GT flushed before and after administration.
--- NOTE | 2017-07-05 09:25 | NUR ---
MS/RN Labs reviewed Morning labs reviewed: -H&H 8.2/24 -Albumin 1.5
--- NOTE | 2017-07-05 11:03 | NUR ---
MS/RN Trach care Trach care provided.
--- NOTE | 2017-07-05 14:53 | NUR ---
MS/flight hostess update Daughter and at bedside, updated as to plan of care.
[2017-07-05] MEDS: FIBERSOURCE HN 1,000 ML BOTTLE GT PRN (16:05)
--- NOTE | 2017-07-05 17:24 | NUR ---
MS/behavioral health care manager / turning Wound care performed as ordered Patient has been turned and repositioned every 2-3 hours throughout the shift to prevent further skin breakdown.
[2017-07-05] MEDS ORDERED: LEVOFLOXACIN 500 MG /D5W 100ML 500 MG in PREMIX 1 EA IV SCH (18:00)
--- NOTE | 2017-07-05 18:23 | NUR ---
MS/RN End note Seen by ARETHA angeles ordered IVAB every 24 hours , medication not yet verified by pharmacy. Has remained in stable condition, saturations greater than 94%, suctioned prn as needed. Will endore to red cap.
[2017-07-06] VITALS: BP 105/54
[2017-07-06] MEDS: ALBUTEROL FS 2.5 MG/0.5 ML VIAL.NEB NEB SCH ×3 (01:20→14:16)
[2017-07-06] MEDS: IPRATROPIUM NEB FS 0.5 MG/2.5 ML AMPUL.NEB NEB SCH ×3 (01:21→14:16)
[2017-07-06 04:00] VITALS: BP 97/48
[2017-07-06] MEDS: DAKINS QUARTER STRENGTH (0.125%) 480 ML BOTTLE TOP SCH ×2 (04:30→17:13)
[2017-07-06 06:23] LABS: BASOPHILS % (AUTO) 0.4 % (0.0-2.0); EOSINOPHILS # (AUTO) 0.5 /CMM (0.0-0.7); EOSINOPHILS % (AUTO) 5.8 % (0.0-6.0); HEMATOCRIT 21 % (39-51); HEMOGLOBIN 7.6 g/dL (13.5-17.5); LYMPHOCYTES # (AUTO) 0.6 /CMM (0.8-4.8); LYMPHOCYTES % (AUTO) 6.7 % (20.0-44.0); MEAN CORPUSCULAR HEMOGLOBIN 37 PG (26.0-33.0); MEAN CORPUSCULAR HGB CONC 36 g/dl (31.0-36.0); MEAN CORPUSCULAR VOLUME 103 fL (80-96); MONOCYTES # (AUTO) 1.2 /CMM (0.1-1.30); MONOCYTES % (AUTO) 14.3 % (2.0-12.0); NEUTROPHILS # (AUTO) 6.2 /CMM (1.8-8.9); NEUTROPHILS % (AUTO) 72.8 % (43.0-81.0); PLATELET COUNT (AUTO) 325 /CMM (150-450); RDW COEFFICIENT OF VARIATION 18.1 (11.5-15.0); RED BLOOD CELL COUNT(AUTO) 2.07 MIL/uL (4.5-6.0); WHITE BLOOD COUNT (AUTO) 8.5 K/uL (4.3-11.0)
--- NOTE | 2017-07-06 06:25 | NUR ---
RN CLOSING NOTES, PATIENT IN BED SLEEPING, ON COOL AEROSOL OXYGEN SATURATION >95%, NO SOB/ACUTE DISTRESS OR DISCOMFORT NOTED AT THIS TIME, NO SIGNIFICANT CHANGE THROUGHOUT THE SHIFT, GTF INFUSING WELL AND PATIENT TOLERATED WELL, NO RESIDUAL AT THIS TIME, HOB ELEVATED AT ALL TIMES FOR ASPIRATION PRECAUTION, SUCTIONING PROVIDED NEEDED FOR THE REMOVAL OF SECRETIONS, RADHA MIDLINE INTACT AND PATENT, F/C DRAINING YELLOW URINE BY GRAVITY , KEPT DRY AND CLEAN, ALL NEEDS PROVIDED AND ANTICIPATED, BED LOCKED AND IN LOWEST POSITION, CALL LIGHT W/I REACH, WILL ENDORSE CONTINUITY OF CARE TO ONCOMING NURSE.
[2017-07-06 06:47] LABS: CALCIUM, SERUM 8.7 mg/dL (8.5-10.1); CARBON DIOXIDE 28 mmol/L (21-32); CHLORIDE 110 mmol/L (98-107); CREATININE 2.2 mg/dL (0.6-1.3); GLUCOSE 111 mg/dL (74-106); MAGNESIUM 2.1 mg/dL (1.8-2.4); PHOSPHORUS 3.1 mg/dL (2.5-4.9); POTASSIUM 4.1 mmol/L (3.5-5.1); SODIUM SERUM 148 mmol/L (136-145); UREA NITROGEN, BLOOD 60 mg/dL (7-18)
[2017-07-06] MEDS: ACETYLCYSTEINE 10% SOLN 400 MG/4 ML VIAL NEB SCH ×2 (07:28→15:30)
--- NOTE | 2017-07-06 07:45 | NUR ---
RN NOTE:(INITIAL) PATIENT RECEIVED OBTUNDED. RESPONSIVE TO TACTILE STIMULI. ON TRAC, COOL AEROSOL 35%. NO BREATHING DISTRESS NOTED. ON TELE MONITOR, SINUS RHYTHM. SAMANO CATH INTACT, DRAINING WITH GRAVITY. RADHA MIDLINE INTACT, ABLE TO FLUSH WITHOUT DIFFICULTY. G-TUBE RUNNING ORDERED, TOLERATING WELL. NO RESIDUAL NOTED. SAFETY MEASURES OBSERVED. ASPIRATION PRECAUTIONS OBSERVED. CALL LIGHT WITHIN REACH. WILL CONTINUE TO MONITOR.
[2017-07-06 08:00] VITALS: BP_SYST 106; BP_SYST 98; BP_DIAS 53; BP_DIAS 59
[2017-07-06 08:45] VITALS: BP 116/62
[2017-07-06] MEDS: ZINC SULFATE 220 MG CAPSULE PO SCH (08:59)
[2017-07-06] MEDS: FERROUS SULFATE (325 MG) 325 MG/TAB TABLET PO SCH (08:59)
[2017-07-06] MEDS: COLCHICINE 0.6 MG TABLET PO SCH (08:59)
[2017-07-06] MEDS: PANTOPRAZOLE 40 MG/PACK PACK GT SCH (08:59)
[2017-07-06] MEDS: MULTIVITAMINS,THERAGRAN 1 UDTAB TABLET PO SCH (08:59)
[2017-07-06] MEDS: ASCORBIC ACID 500 MG TABLET PO SCH (08:59)
[2017-07-06] MEDS: DOCUSATE SODIUM LIQ 100 MG/10 ML UDC GT SCH ×2 (08:59→17:12)
[2017-07-06] MEDS: LEVOTHYROXINE SODIUM 75 MCG TABLET PO SCH (08:59)
[2017-07-06] MEDS: LEVETIRACETAM SOL (5 ML) 100 MG/ML UDC GT SCH (08:59)
[2017-07-06] MEDS: FUROSEMIDE 20 MG/2 ML VIAL IV SCH (09:00)
[2017-07-06 12:00] VITALS: BP 112/73
--- NOTE | 2017-07-06 13:30 | NUR ---
RN NOTES: NOTED ENDO TRACHIAL CULTURE +VE E-COLI ESBL. VANNESA BUSINESS PERFORMANCE SPECIALIST AWARE, RECEIVED ORDERS DROPLET PRECAUTIONS. ORDERS NOTED & CARRIED OUT.
[2017-07-06] MEDS: FIBERSOURCE HN 1,000 ML BOTTLE GT PRN (14:46)
[2017-07-06] MEDS ORDERED: ASCO500T9 PO (15:34)
[2017-07-06] MEDS ORDERED: MERO500V IV (15:34)
[2017-07-06] MEDS ORDERED: ACET1OOV6 NEB (15:34)
[2017-07-06] MEDS ORDERED: ALBU2.5V13 NEB (15:34)
[2017-07-06] MEDS ORDERED: FLUC200P12 IV (15:34)
[2017-07-06] MEDS ORDERED: SODI473S8 TOP (15:34)
[2017-07-06] MEDS ORDERED: Fibersource Hn GT (15:34)
[2017-07-06] MEDS ORDERED: IPRA0.2S9 NEB (15:34)
[2017-07-06] MEDS ORDERED: VANC1PLA11 IV (15:34)
[2017-07-06] MEDS ORDERED: Zinc Sulfate PO (15:34)
[2017-07-06] MEDS ORDERED: FURO-145 PO (15:41)
[2017-07-06 16:00] VITALS: BP 105/61
--- NOTE | 2017-07-06 18:36 | NUR ---
PT DISCHARGE TO SUB ACUTE IN STABLE CONDITION. REPORT GIVEN TO ANEGLIA QUEVEDO.
== END 2017-07-06 18:33 | DRG 3 ==
LOC: ER 03:21 → ICU 06:21 → TELE-TD 07-03 07:11 → TELE1 07-04 11:39
PROVIDERS: ADMIT Nurse Practitioner Acute Care; ATTEND Nurse Practitioner Acute Care
PROC: 5A1955Z Respiratory Ventilation, Greater than 96 Consecutive Hours (ICD-10-PCS; principal; 2017-06-06)
PROC: 0JB70ZZ Excision of Back Subcutaneous Tissue and Fascia, Open Approach (ICD-10-PCS; 2017-06-07)
PROC: 30233N1 Transfusion of Nonautologous Red Blood Cells into Peripheral Vein, Percutaneous Approach (ICD-10-PCS; 2017-06-07)
PROC: 05H633Z Insertion of Infusion Device into Left Subclavian Vein, Percutaneous Approach (ICD-10-PCS; 2017-06-07)
PROC: B547ZZA Ultrasonography of Left Subclavian Vein, Guidance (ICD-10-PCS; 2017-06-07)
PROC: 0HB8XZZ Excision of Buttock Skin, External Approach (ICD-10-PCS; 2017-06-07)
PROC: 0DD58ZX Extraction of Esophagus, Via Natural or Artificial Opening Endoscopic, Diagnostic (ICD-10-PCS; 2017-06-07)
PROC: 0DD68ZX Extraction of Stomach, Via Natural or Artificial Opening Endoscopic, Diagnostic (ICD-10-PCS; 2017-06-07)
PROC: 0BH18EZ Insertion of Endotracheal Airway into Trachea, Via Natural or Artificial Opening Endoscopic (ICD-10-PCS; 2017-06-17)
PROC: 0KBN0ZZ Excision of Right Hip Muscle, Open Approach (ICD-10-PCS; 2017-07-01)
PROC: 0KBP0ZZ Excision of Left Hip Muscle, Open Approach (ICD-10-PCS; 2017-07-01)
PROC: 0B110F4 Bypass Trachea to Cutaneous with Tracheostomy Device, Open Approach (ICD-10-PCS; 2017-07-02)
DX: A41.9 Sepsis, unspecified organism (principal); J69.0 Pneumonitis due to inhalation of food and vomit; E03.5 Myxedema coma; E43 Unspecified severe protein-calorie malnutrition; J15.6 Pneumonia due to other Gram-negative bacteria; G93.41 Metabolic encephalopathy; N17.0 Acute kidney failure with tubular necrosis; J84.9 Interstitial pulmonary disease, unspecified; R65.21 Severe sepsis with septic shock; R53.2 Functional quadriplegia; J96.01 Acute respiratory failure with hypoxia; K22.6 Gastro-esophageal laceration-hemorrhage syndrome; L89.153 Pressure ulcer of sacral region, stage 3; L89.154 Pressure ulcer of sacral region, stage 4; D68.59 Other primary thrombophilia; E87.2 Acidosis; B37.49 Other urogenital candidiasis; K22.10 Ulcer of esophagus without bleeding; J90 Pleural effusion, not elsewhere classified; E87.0 Hyperosmolality and hypernatremia; L89.312 Pressure ulcer of right buttock, stage 2; D69.6 Thrombocytopenia, unspecified; D63.8 Anemia in other chronic diseases classified elsewhere; E86.0 Dehydration; E03.9 Hypothyroidism, unspecified; K21.9 Gastro-esophageal reflux disease without esophagitis; Z85.46 Personal history of malignant neoplasm of prostate; F03.90 Unspecified dementia, unspecified severity, without behavioral disturbance, psychotic disturbance, mood disturbance, and anxiety; R13.10 Dysphagia, unspecified; M19.90 Unspecified osteoarthritis, unspecified site; Z79.899 Other long term (current) drug therapy; Z86.73 Personal history of transient ischemic attack (TIA), and cerebral infarction without residual deficits; Z66 Do not resuscitate; G40.909 Epilepsy, unspecified, not intractable, without status epilepticus; Y95 Nosocomial condition; M10.9 Gout, unspecified; D64.9 Anemia, unspecified; K57.10 Diverticulosis of small intestine without perforation or abscess without bleeding; K29.70 Gastritis, unspecified, without bleeding; K59.00 Constipation, unspecified; E83.42 Hypomagnesemia; S30.813A Abrasion of scrotum and testes, initial encounter; X58.XXXA Exposure to other specified factors, initial encounter; Y92.129 Unspecified place in nursing home as the place of occurrence of the external cause; I12.9 Hypertensive chronic kidney disease with stage 1 through stage 4 chronic kidney disease, or unspecified chronic kidney disease; N18.9 Chronic kidney disease, unspecified; F09 Unspecified mental disorder due to known physiological condition; I70.0 Atherosclerosis of aorta; Z93.1 Gastrostomy status; Z22.322 Carrier or suspected carrier of Methicillin resistant Staphylococcus aureus; L89.529 Pressure ulcer of left ankle, unspecified stage; L89.519 Pressure ulcer of right ankle, unspecified stage; L89.899 Pressure ulcer of other site, unspecified stage
CPT/HCPCS: 31720; 36415; 36600; 71045-TC; 80048-TC; 80053-TC; 80061-TC; 80202-TC; 81000-TC; 82040-TC; 82248-TC; 82272-TC; 82310-TC; 82330; 82803-TC; 82962-TC; 83605-TC; 83735-TC; 83880; 84100-TC; 84439-TC; 84443-TC; 84480; 84481; 84484-TC; 85025-TC; 85027-TC; 85610-TC; 85730-TC; 86850-TC; 86921-TC; 87040-TC; 87070-TC; 87081-TC; 87086-TC; 87186-TC; 87400; 88305-TC; 88313-TC; 88342; 94002-TC; 94003-TC; 94640-TC; 94664-TC; 94760-TC; 94762-TC; 94799-TC; A4216; A4217; A4606; A4624; A6248; A6253; A6402; A6403; C1751; C9113; J0610; J1940; J1953; J1956; J2248; J2250; J2370; J2543; J2704; J2765; J3010; J3370; J3475; J3490; J7030; J7050; J7060; J7120; J8597; P9016-BL; P9047; Z7610

== ENCOUNTER 2017-07-06 17:04 | Inpatient (IN) | payer MEDICARE, OTHER ==
[~2017-07-06] VITALS: Ht 165.1 cm; Wt 60.8 kg
[~2017-07-06 17:04] MED LIST changes: +ACET1OOV6 NEB; +ALBU2.5V13 NEB; +ASCO500T9 PO; +FLUC200P12 IV; +FURO-145 PO; +Fibersource Hn GT; +IPRA0.2S9 NEB; +MERO500V IV; +SODI473S8 TOP; +VANC1PLA11 IV; +Zinc Sulfate PO
[2017-07-06] MEDS ORDERED: FLUCONAZOLE (100 MG) 100 MG TABLET PO SCH (18:00)
[2017-07-06] MEDS ORDERED: FEE PK DOSING 1 MIN EA MC ONE (18:16)
[2017-07-06] MEDS ORDERED: VANCOMYCIN 1 GM in IV D5W 250 ML IV ONE (19:00)
[2017-07-06] MEDS: MEROPENEM 500 MG in IV NS 0.9% 50 ML IV SCH (19:00)
--- NOTE | 2017-07-06 19:00 | NUR ---
RN NOTES ADMITTED 87 YR OLD MALE FROM [place], UNDER THE CARE OF Eva EVERETT. PLACED IN ROOM 273. PT AWAKE WITH NO RESPIRATORY DISTRESS. ON C/A @28% FIO2. DX: RESP FAILURE, SEPSIS, PNA, ACUTE ENCEPHALOPATHY, GI BLEED, HTN, HYPERNATREMIA, ACUTE RENAL INSUFFICIENCY. SEVERE DEHYDRATION. ALL ORDER REVIEWED AND VERIFIED WITH DR. COLE. F/C IN PLACE AND INTACT, DRAINING MEGHAN URINE. WITH LEFT UPPER ARM MIDLINE, INTACT AND PATENT. ROUTINE BODY ASSESSMENT DONE. WILL CONTINUE TO MONITOR.
[2017-07-06 19:27] VITALS: BP 96/50
[2017-07-06] MEDS ORDERED: FLUCONAZOLE (100 MG) 100 MG TABLET ONE (22:05)
[2017-07-07] VITALS (7 sets, daily range): BP systolic 106–116; BP diastolic 54–56
[2017-07-07] MEDS: MEROPENEM 500 MG in IV NS 0.9% 50 ML IV SCH ×2 (06:00→18:30)
--- NOTE | 2017-07-07 07:39 | NUR ---
RT NOTE: RT CALLED BY NURSE DUE TO INCREASED WOB. PATIENT WAS SUCTIONED TO OBTAIN COPIOUS AMOUNT OF THICK SEVERINO SECRETIONS. SP02=84% ON 28% FI02. PATIENT'S FI02 WAS INCREASED TO 35% AT 8LPM. PATIENT'S WOB DECREASED. PATIENT'S SP02=92% AT THIS TIME NURSE AWARE. WILL CONTINUE TO MONITOR.
[2017-07-07 07:55] LABS: CALCIUM, SERUM 8.7 mg/dL (8.5-10.1); CARBON DIOXIDE 26 mmol/L (21-32); CHLORIDE 112 mmol/L (98-107); CREATININE 2.1 mg/dL (0.6-1.3); GLUCOSE 112 mg/dL (74-106); POTASSIUM 4.5 mmol/L (3.5-5.1); SODIUM SERUM 147 mmol/L (136-145); UREA NITROGEN, BLOOD 67 mg/dL (7-18)
[2017-07-07] MEDS ORDERED: FERROUS SULFATE (325 MG) 325 MG/TAB TABLET GT SCH (09:00)
[2017-07-07] MEDS ORDERED: FIBERSOURCE HN 1,000 ML BOTTLE GT PRN ×3 (09:00→18:00)
[2017-07-07] MEDS ORDERED: ACETAMINOPHEN 650 MG/20.3 ML UDC GT PRN (09:00)
[2017-07-07] MEDS ORDERED: MAGNESIUM HYDROXIDE 30 ML UDC GT PRN (09:30)
[2017-07-07] MEDS ORDERED: VITS A AND D/WHITE PET/LANOLIN 5 GM PACKET TP PRN (09:30)
[2017-07-07] MEDS: ASCORBIC ACID 500 MG TABLET GT SCH (09:56)
[2017-07-07] MEDS: MULTIVITAMINS,THERAGRAN 1 UDTAB TABLET GT SCH (09:56)
[2017-07-07] MEDS: ZINC SULFATE 220 MG CAPSULE GT SCH (09:56)
[2017-07-07] MEDS: LEVETIRACETAM SOL (5 ML) 100 MG/ML UDC GT SCH ×2 (09:56→21:06)
[2017-07-07] MEDS: FLUCONAZOLE (100 MG) 100 MG TABLET GT SCH (09:56)
[2017-07-07] MEDS: VITS A AND D/WHITE PET/LANOLIN 5 GM PACKET TP SCH ×4 (11:00→21:46)
[2017-07-07] MEDS: CADEXOMER IODINE 40 GM TUBE TP SCH ×4 (11:00→21:07)
[2017-07-07] MEDS ORDERED: TUBERCULIN,PURIF.PROT.DERIV. 5 TU/0.1 ML VIAL ID SCH (11:00)
--- NOTE | 2017-07-07 11:09 | NUR ---
SHIRLEY contacted Faustino from [facility], which is where the resident was living prior to [facility]. He gave the addiction social worker contact information of the resident's (Charlotte Acosta- [phone]).SHIRLEY called the resident's and she stated she will be coming to the hospital today to sign admission ppwk.
--- NOTE | 2017-07-07 11:23 | NUR ---
WOUND CARE CONSULT: PT SEEN FOR SKIN ASSESSMENT AND NOTED TO HAVE MULTIPLE WOUNDS, PRESENT ON ADMISSION INCLUDING SACRAL ULCER WITH NECROTIC TISSUE, RT BUTTOCK ULCER WITH NECROTIC TISSUE, LEFT HIP, MIDBACK, RT UPPER BACK AND LEFT SHOULDER INTACT DEEP TISSUE INJURIES, LEFT MEDIAL MALLEOLUS, LEFT MEDIAL FOOT, RT LATERAL 5TH TOE INTACT DEEP TISSUE INJURIES NOTED. PT NOTED TO HAVE VERY FRAGILE SKIN WITH UNEVEN PIGMENTATION. PT IS IMMOBILE ON VENTILATOR. PT ON FIRST STEP MATTRESS. RECOMMEND SURGICAL CONSULT. ALL SKIN PROTECTION AND WOUND RECOMMENDATIONS DISCUSSED WITH NURSING STAFF. CONCUR WITH CURRENT WOUND ORDERS. ALL SKIN PROTECTION MEASURES IN PLACE. WOUND MEASUREMENTS AREA FOLLOWS: LEFT HIP PURPLE DTI(INTACT) IS 5CM X 3CM X UTD, NO DRAINAGE. MIDBACK AREA HAS PROXIMAL PURPLE DTI WHICH IS 1.5CM X 4XCM X UTD AND DISTAL MIDBACK PURPLE DTI IS 1.5CM X 1CM X UTD (BOTH INTACT WITH NO DRAINAGE). RT UPPER BACK HAS BROWN INTACT DTI WHICH IS 3CM X 4CM X UTD, NO DRAINAGE. LEFT SHOULDER HAS PURPLE INTACT DTI WHICH IS 2CM X 1.5CM X UTD(NO DRAINAGE). SACRAL ULCER IS 10CM X 4CM X 2CM WITH NECROTIC TISSUE (BROWN) AND SOME PINK GRANULATION TISSUE, SMALL AMOUNT OF PINK/BROWN DRAINAGE, NO ODOR. RT BUTTOCK WOUND IS BROWN AND PINK AND MEASURES 3CM X 3CM X UTD, NO DRAINAGE, NO ODOR. RT LATERAL 5TH TOE PURPLE INTACT DTI MEASURES 0.5CM X 0.5CM X UTD(NO DRAINAGE). LEFT MEDIAL MALLEOLUS MEASURES 2.5CM X 2.5CM X UTD AND IS PURPLE INTACT DTI(NO DRAINAGE). LEFT MEDIAL FOOT PURPLE INTACT DTI MEASURES 1CM X 1CM X UTD(NO DRAINAGE). LEFT DORSAL FOOT HAS RED LINE MEASURING 0.3CM X 4CM, NO DRAINAGE. LEFT BUTTOCK SCAR NOTED. LEFT LATERAL BUTTOCK HAS UNEVEN BROWN PIGMENTATION. RECOMMENDATIONS FOR DTI'S IS OFFLOADING AND PROTECTION WITH MEPILEX. DISCUSSED WITH NURSING STAFF. ALL ABOVE NOTED TO BE PRESENT ON ADMISSION. MD IN AGREEMENT WITH PLAN OF CARE.
--- NOTE | 2017-07-07 13:00 | NUR ---
Seen by Edita De La Rosa NP for Dr. Rashid Babb, she reviewed treatment current orders which she is in agreement. She gave an order to obtain consent for serial debridement. Endorsed.
[2017-07-07] MEDS ORDERED: IPRATROPIUM NEB FS 0.5 MG/2.5 ML AMPUL.NEB NEB SCH (13:30)
[2017-07-07] MEDS ORDERED: IV NS 0.9% 1,000 ML IV PRN (14:00)
[2017-07-07] MEDS ORDERED: VANCOMYCIN 1 GM in IV D5W 250 ML IV SCH (14:00)
[2017-07-07] MEDS: ALBUTEROL FS 2.5 MG/0.5 ML VIAL.NEB NEB SCH ×2 (14:01→20:13)
--- NOTE | 2017-07-07 14:57 | NUR ---
SW met with the resident's in order to sign admission paperwork (patient rights acknowledgement, documentation of preferred intensity of care, conditions of admission, an important message from medicare about your rights, [place] Standard Admission Agreement, and voluntary prior express consent form). Resident's wishes for the resident to be no CPR with maximum treatment. Charge nurse informed. Intake packet placed into the resident's chart.
--- NOTE | 2017-07-07 15:05 | NUR ---
Sent work order for resident's television volume not working.
[2017-07-07] MEDS: COLCHICINE 0.6 MG TABLET GT SCH (16:00)
[2017-07-07] MEDS: FUROSEMIDE 20 MG TABLET GT SCH (16:01)
--- NOTE | 2017-07-07 16:30 | NUR ---
Seen and examined by Dr. Stephen, and clarified some of the orders like Atrovent from which according to pharmacist patient was getting 0.5 mg instead of 0.25mg. . MD Stephen gave an order for Hegins 5/325mg. to be given 30 min. prior to wound care. Senior Sql Server Developer also recommended to increase GT feeding from 60 cc/hr to 65cc/hr and Prostat TID. Dr. Stephen agreed. Order carried out.
[2017-07-07] MEDS ORDERED: PROSOURCE / PROSTAT (PYXIS) 30 ML UDC GT SCH (18:00)
[2017-07-07] MEDS ORDERED: HYDROCODONE/APAP 5/325MG 1 EACH TABLET GT PRN (18:00)
[2017-07-07] MEDS: IPRATROPIUM NEB FS 0.5 MG/2.5 ML AMPUL.NEB NEB SCH (20:13)
[2017-07-07] MEDS ORDERED: VITS A AND D/WHITE PET/LANOLIN 5 GM PACKET TP SCH ×2 (21:00)
[2017-07-07] MEDS: LINEZOLID 600 MG TABLET PO SCH (21:06)
[2017-07-07] MEDS: ACETYLCYSTEINE 10% SOLN 400 MG/4 ML VIAL NEB SCH (23:30)
[2017-07-08] VITALS: BP 108/49
[2017-07-08] MEDS: IPRATROPIUM NEB FS 0.5 MG/2.5 ML AMPUL.NEB NEB SCH ×2 (01:00→07:29)
[2017-07-08] MEDS: ALBUTEROL FS 2.5 MG/0.5 ML VIAL.NEB NEB SCH ×2 (01:00→07:30)
[2017-07-08 04:00] VITALS: BP 110/58
[2017-07-08] MEDS: MEROPENEM 500 MG in IV NS 0.9% 50 ML IV SCH (05:57)
[2017-07-08] MEDS: ACETYLCYSTEINE 10% SOLN 400 MG/4 ML VIAL NEB SCH (07:30)
[2017-07-08 07:38] LABS: CALCIUM, SERUM 8.6 mg/dL (8.5-10.1); CARBON DIOXIDE 28 mmol/L (21-32); CHLORIDE 112 mmol/L (98-107); CREATININE 2.4 mg/dL (0.6-1.3); GLUCOSE 99 mg/dL (74-106); POTASSIUM 4.6 mmol/L (3.5-5.1); SODIUM SERUM 148 mmol/L (136-145); UREA NITROGEN, BLOOD 71 mg/dL (7-18)
--- NOTE | 2017-07-08 08:02 | NUR ---
Notified Dr. Zamudio that pt's BP 67/31 HR 100 T 98.2 F R 20 O2 sat 97%. Placed pt flat on bed. Pt unable to tolerate Trendelenburg. GT feeding held as aspiration precaution.
--- NOTE | 2017-07-08 08:10 | NUR ---
Paged Dr. Zamudio and left message with Lazaro.
--- NOTE | 2017-07-08 08:14 | NUR ---
Notified Dr. Mancini of pt's low BP 67/31 HR 100.
--- NOTE | 2017-07-08 08:25 | NUR ---
Received order from Dr. Mancini to give NS 1 L IV bolus x 1 now. Started IV bolus immediately. BP 67/40 HR HR 97.
--- NOTE | 2017-07-08 08:45 | NUR ---
BP 64/36 HR 95. NS IV infusing.
[2017-07-08] MEDS: FUROSEMIDE 20 MG TABLET GT SCH (09:00)
[2017-07-08] MEDS ORDERED: FERROUS SULFATE UDC 300 MG/5 ML UDC GT SCH (09:00)
[2017-07-08] MEDS: LEVETIRACETAM SOL (5 ML) 100 MG/ML UDC GT SCH (09:00)
--- NOTE | 2017-07-08 09:00 | NUR ---
BP 64/48 HR 95.
[2017-07-08] MEDS: ASCORBIC ACID 500 MG TABLET GT SCH (09:01)
[2017-07-08] MEDS: MULTIVITAMINS,THERAGRAN 1 UDTAB TABLET GT SCH (09:01)
--- NOTE | 2017-07-08 09:15 | NUR ---
BP 64/35 HR 93.
[2017-07-08] MEDS: LINEZOLID 600 MG TABLET PO SCH (09:17)
[2017-07-08] MEDS: ZINC SULFATE 220 MG CAPSULE GT SCH (09:17)
[2017-07-08] MEDS: FLUCONAZOLE (100 MG) 100 MG TABLET GT SCH (09:17)
[2017-07-08] MEDS: COLCHICINE 0.6 MG TABLET GT SCH (09:17)
--- NOTE | 2017-07-08 09:38 | NUR ---
Notified Dr. Mancini that NS IV bolus is completed and BP 63/33 HR 90. Received order to transfer pt to ER.
--- NOTE | 2017-07-08 09:40 | NUR ---
Notified pt's Charlotte and pt's daughter Malika that pt will be transferred to ER due to hypotension.
--- NOTE | 2017-07-08 10:25 | NUR ---
Transferred pt to ER due to hypotension. Pt accompanied by SAE Tatum, RT Clarke, and REBECCA Harley. Addendum: 07/08/17 at 1048 by AZUL LAUREN RN Report given to SAE Nina prior to transfer.
[2017-07-08] MEDS ORDERED: LINE600T2 GT (11:02)
[2017-07-08] MEDS ORDERED: ACET1OOV6 HHN (11:02)
[2017-07-08] MEDS ORDERED: ASCO500T9 GT (11:02)
[2017-07-08] MEDS ORDERED: FURO-145 GT (11:02)
[2017-07-08] MEDS ORDERED: CADE40GE2 TP (11:02)
[2017-07-08] MEDS ORDERED: IPRA0.2S9 IH (11:02)
[2017-07-08] MEDS ORDERED: NUTR150016 GT (11:02)
[2017-07-08] MEDS ORDERED: MERO500V3 IV (11:02)
[2017-07-08] MEDS ORDERED: FERR300L GT (11:02)
[2017-07-08] MEDS ORDERED: VITA56.7 TP (11:02)
[2017-07-08] MEDS ORDERED: AMIN30LI4 GT (11:02)
[2017-07-08] MEDS ORDERED: NORM10004 IV (11:02)
[2017-07-08] MEDS ORDERED: HYDR-3974 GT (11:02)
[2017-07-08] MEDS ORDERED: FLUC100T8 GT (11:02)
[2017-07-08] MEDS ORDERED: ALBU2.5V38 IH (11:02)
[2017-07-08] MEDS ORDERED: ZINC220C8 GT (11:02)
--- NOTE | 2017-07-08 12:10 | NUR ---
Anne was informed that the resident was transferred to [facility] ER. The resident has been placed on a bedhold x7 days as of 07/08/2017. ANNE faxed the "Resident Transfer or Discharge Form" to carmel Escobar fax: [phone] tel: [phone]. Received fax confirmation that it was sent. Resident Transfer or Discharge Form and Bed Hold Notification form was placed into the resident's chart.
[2017-07-12 07:32] LABS: CALCIUM, SERUM 8.1 mg/dL (8.5-10.1); CARBON DIOXIDE 21 mmol/L (21-32); CHLORIDE 110 mmol/L (98-107); CREATININE 1.8 mg/dL (0.6-1.3); GLUCOSE 98 mg/dL (74-106); POTASSIUM 4.6 mmol/L (3.5-5.1); SODIUM SERUM 140 mmol/L (136-145); UREA NITROGEN, BLOOD 52 mg/dL (7-18)
--- NOTE | 2017-07-15 07:50 | NUR ---
Resident seen by Dr. Anthony Avery DPM (clock repairer) on the [facility] on 07/14/2017.
--- NOTE | 2017-07-15 08:27 | NUR ---
Sent referral to Dr. Lehman tel: [phone] fax: [phone] (transmission technician) for new resident optometry evaluation. SW will follow up.
--- NOTE | 2017-07-15 12:50 | NUR ---
Readmitted pt from [facility]. Pt on ventilator LTV 1200 with setting of AC 16 VT 400 FiO2 40%. Has trach tube Shiley 8. Started GT feeding Fibersource HN 65 mL/hr. HOB elevated for aspiration precaution. Made pt clean and comfortable in bed. Body assessment done. Left and right hands noted with edema, left hand has multiple closed blisters. Pt has DTI on the right foot 5th toe, right heel, left trochanter, right side of back. He also has a left thigh wound, sacral wound, right buttock wound, lower back wounds #1 and #2. Verified orders with Dr. Mancini. Call light within easy reach.
--- NOTE | 2017-07-15 13:32 | NUR ---
gas pit worker spoke with the charge nurse and charge nurse informed her that the resident is coming back to the unit today 07/15/2017 with the same accnt number even though he surpassed his 7 day behold. She indicated that it was endorsed to her that the resident is coming from the medical floor with a code status of chemical code only. SW called resident's daughter Malika and she indicated that resident's reported that she wants all interventions aside from CPR. This is also what she indicated to the SW when she completed the intake paperwork (no CPR with maximum treatment). Charge nurse informed.
[2017-07-15] MEDS ORDERED: LACT1CAP72 GT (13:57)
[2017-07-15] MEDS ORDERED: ALLA266C2 TP (13:57)
[2017-07-15] MEDS ORDERED: HEPA50008 SQ (13:57)
[2017-07-15] MEDS ORDERED: ZOLP5TAB8 GT (13:57)
[2017-07-15] MEDS ORDERED: ONDA4VIA30 IVP (13:57)
[2017-07-15] MEDS ORDERED: HYDR-552 GT (13:57)
[2017-07-15] MEDS: PROSOURCE / PROSTAT (PYXIS) 30 ML UDC GT SCH (17:00)
[2017-07-15] MEDS ORDERED: HYDROCODONE/APAP 5/325MG 1 EACH TABLET GT PRN (17:00)
[2017-07-15] MEDS ORDERED: ACETAMINOPHEN 650 MG/20.3 ML UDC GT PRN (17:00)
[2017-07-15] MEDS ORDERED: FIBERSOURCE HN 1,000 ML BOTTLE GT PRN (17:00)
[2017-07-15] MEDS: LACTOBACILLUS RHAMNOSUS GG 1 EACH CAP.SPRINK GT SCH (17:00)
[2017-07-15] MEDS ORDERED: MAGNESIUM HYDROXIDE 30 ML UDC GT PRN (17:30)
[2017-07-15] MEDS ORDERED: ONDANSETRON HCL/PF 4 MG/2 ML VIAL IVP PRN (17:30)
--- NOTE | 2017-07-15 18:06 | NUR ---
RT NOTE PT RECEIVED MECHANICALLY VENTILATED. SETTINGS ENDORSED. PT WAS TRANSFERRED FROM [facility]. ALARMS SET PER PROTOCOL AND AUDIBLE. VENT PLUGGED IN TO RED OUTLET. AMBU BAG AT BED SIDE. NO DISTRESS NOTED. TRACH MIDLINE AND SECURE. CUFF INFLATED. Addendum: 07/15/17 at 1808 by MURPHY GRAHAM RT Amended: Links added.
[2017-07-15] MEDS: ALBUTEROL FS 2.5 MG/0.5 ML VIAL.NEB NEB SCH (19:44)
[2017-07-15] MEDS: IPRATROPIUM NEB FS 0.5 MG/2.5 ML AMPUL.NEB NEB SCH (19:44)
[2017-07-15] MEDS: LEVETIRACETAM SOL (5 ML) 100 MG/ML UDC GT SCH (20:21)
[2017-07-15] MEDS: HEPARIN SODIUM, PORCINE 5000 UNITS/1 ML VIAL SQ SCH (20:21)
[2017-07-15 20:31] VITALS: BP 113/59
[2017-07-15] MEDS ORDERED: BACI/NEOM/POLY B OINT PKT 1 UDPKT PACKET TP SCH ×2 (21:00)
[2017-07-15] MEDS ORDERED: VITS A AND D/WHITE PET/LANOLIN 5 GM PACKET TP SCH (21:00)
[2017-07-15] MEDS ORDERED: CADEXOMER IODINE 40 GM TUBE TP SCH ×2 (21:00)
[2017-07-15] MEDS ORDERED: NEOMY SULF/BACITRAC ZN/POLY 15 GM TUBE TP SCH (21:00)
[2017-07-15] MEDS ORDERED: ZOLPIDEM TARTRATE 5 MG TABLET GT PRN (22:00)
[2017-07-15] MEDS: ACETYLCYSTEINE 10% SOLN 400 MG/4 ML VIAL NEB SCH (23:41)
[2017-07-16 00:10] VITALS: BP 108/58
[2017-07-16] MEDS: IPRATROPIUM NEB FS 0.5 MG/2.5 ML AMPUL.NEB NEB SCH ×2 (01:49→07:55)
[2017-07-16] MEDS: ALBUTEROL FS 2.5 MG/0.5 ML VIAL.NEB NEB SCH ×2 (01:49→07:55)
[2017-07-16 04:12] VITALS: BP 119/62
--- NOTE | 2017-07-16 06:50 | NUR ---
Pt remain stable during the night ,no distress noted.O2 sats 92-94% on 40% Fio2 mechanical vent.Repositioned q 2 hours and kept comfortable.Will continue to monitor.
[2017-07-16] MEDS: ACETYLCYSTEINE 10% SOLN 400 MG/4 ML VIAL NEB SCH (07:35)
[2017-07-16 07:37] VITALS: BP 107/49
--- NOTE | 2017-07-16 08:00 | NUR ---
Resident is on ventilator with respiratory rate of 28 br/min,RT aware ,as per night club manager report resident has increased respiratory rate since re admitted.oxygen saturation checked 100%,resident is not on distress.vital signs is stable continue to monitor.
[2017-07-16] MEDS: LEVETIRACETAM SOL (5 ML) 100 MG/ML UDC GT SCH (08:41)
[2017-07-16] MEDS: LACTOBACILLUS RHAMNOSUS GG 1 EACH CAP.SPRINK GT SCH (08:41)
[2017-07-16] MEDS: PROSOURCE / PROSTAT (PYXIS) 30 ML UDC GT SCH (08:43)
[2017-07-16] MEDS: HEPARIN SODIUM, PORCINE 5000 UNITS/1 ML VIAL SQ SCH (08:44)
[2017-07-16] MEDS ORDERED: FERROUS SULFATE - FOR SA ONLY 330 MG/7.5 ML UDC GT SCH (09:00)
[2017-07-16] MEDS ORDERED: ZINC SULFATE 220 MG CAPSULE GT SCH (09:00)
[2017-07-16] MEDS ORDERED: FERROUS SULFATE UDC 300 MG/5 ML UDC GT SCH (09:00)
[2017-07-16] MEDS ORDERED: COLCHICINE 0.6 MG TABLET GT SCH (09:00)
[2017-07-16] MEDS ORDERED: ASCORBIC ACID 500 MG TABLET GT SCH (09:00)
[2017-07-16] MEDS ORDERED: MULTIVITAMINS,THERAGRAN 1 UDTAB TABLET GT SCH (09:00)
[2017-07-16] MEDS ORDERED: FUROSEMIDE 20 MG TABLET GT SCH (09:00)
--- NOTE | 2017-07-16 09:13 | NUR ---
Received a call from resident's daughter Malika Acosta stating that her sibling was upset that she could not get any information yesterday since she is not a responsible alliance party. Per Malika, it is okay to release any information to any family. She reported that these will be the frequent visitors: Patience Acosta, Nichole Acosta, Yodit Acosta, Carin Alvarez, Antoni Acosta, Carin Biswas, Malika Acosta, and Humble Acosta. She notes that the resident has over 14+ children that will be visiting at different times. SHe noted that if someone is not on the list, to please call her to provide approval. She notes that resident's and herself are the only ones that are able to make medical decisions. Charge nurse informed and a notice was placed into the resident's chart.
--- NOTE | 2017-07-16 09:45 | NUR ---
Notified Dr. Mancini resident with slight T 99.5, R 20, 99%, 107/49. NNO given at this time.
--- NOTE | 2017-07-16 10:00 | NUR ---
Resident O2 saturation is 98%.not on any distress.with respiratory rate of 22.continue to monitor.
--- NOTE | 2017-07-16 11:45 | NUR ---
Entered in resident's room to do wound care. resident was not on distress ,WATER SOFTENER INSTALLER was with the patient.Resident start vomiting large blackish vomitus,charge nurse aware,suction done.vital signs checked ,BP 58/47, HR 113 ,Charge nurse aware,Called for rapid response.Rapid response team arrived at the bed side.Report given what happened to the resident.
--- NOTE | 2017-07-16 12:04 | NUR ---
Upon entering the room found resident with large amount of black coffee ground color emesis in the patient's mouth and linen. Per nurse assigned patient has B/P of 58/47 and HR 113. RR immediately called. RR response team arrived, assessed resident no palpable pulse appreciated, eyes fixed, no vital signs of life. ICU RR nurse Kaila pronounced his at 11:54. Resident's attending physician Dr. Mancini and family c/o Malika notified of patient's passing.
--- NOTE | 2017-07-16 12:50 | NUR ---
Spoke with Juan Pablo from [facility], patient not a candidate Case # [id number]. Patience daughter was the first to arrive and signed record of release of body. Nursing supervisor plasma and admitting department notified of patient's .
--- NOTE | 2017-07-16 15:15 | NUR ---
Resident's family gathered at bedside to pay their last respect with resident. Allowed family to mourn. No mortuary arrangement at this time, body taken to hospital morgue and proper identification attached.
== END 2017-07-16 11:54 | disposition expired | DRG 189 ==
LOC: SA 17:04
PROVIDERS: ADMIT Internal Medicine; ATTEND Internal Medicine
PROC: 05H633Z Insertion of Infusion Device into Left Subclavian Vein, Percutaneous Approach (ICD-10-PCS; principal; 2017-07-07)
PROC: B547ZZA Ultrasonography of Left Subclavian Vein, Guidance (ICD-10-PCS; 2017-07-07)
DX: J96.21 Acute and chronic respiratory failure with hypoxia (principal); R65.21 Severe sepsis with septic shock; N17.0 Acute kidney failure with tubular necrosis; E43 Unspecified severe protein-calorie malnutrition; A41.9 Sepsis, unspecified organism; G93.41 Metabolic encephalopathy; J18.9 Pneumonia, unspecified organism; L89.153 Pressure ulcer of sacral region, stage 3; L89.313 Pressure ulcer of right buttock, stage 3; E87.0 Hyperosmolality and hypernatremia; N39.0 Urinary tract infection, site not specified; Z93.0 Tracheostomy status; N18.3 Chronic kidney disease, stage 3 (moderate); R13.10 Dysphagia, unspecified; Z79.899 Other long term (current) drug therapy; Z86.73 Personal history of transient ischemic attack (TIA), and cerebral infarction without residual deficits; Z93.1 Gastrostomy status; Z85.46 Personal history of malignant neoplasm of prostate; Y95 Nosocomial condition; K21.9 Gastro-esophageal reflux disease without esophagitis; I25.10 Atherosclerotic heart disease of native coronary artery without angina pectoris; M19.90 Unspecified osteoarthritis, unspecified site; F03.90 Unspecified dementia, unspecified severity, without behavioral disturbance, psychotic disturbance, mood disturbance, and anxiety; M10.9 Gout, unspecified; F09 Unspecified mental disorder due to known physiological condition; I12.9 Hypertensive chronic kidney disease with stage 1 through stage 4 chronic kidney disease, or unspecified chronic kidney disease; E03.9 Hypothyroidism, unspecified; D63.1 Anemia in chronic kidney disease; E86.1 Hypovolemia; G40.909 Epilepsy, unspecified, not intractable, without status epilepticus; S30.813A Abrasion of scrotum and testes, initial encounter; X58.XXXA Exposure to other specified factors, initial encounter; Y92.129 Unspecified place in nursing home as the place of occurrence of the external cause
CPT/HCPCS: 31720; 36415; 80048-TC; 80202-TC; 86580-TC; 87081-TC; 94003-TC; A4216; A4623; A6253; A6402; A7526; J1644; J1953; J2185; J3370; J7060; Z7610

== ENCOUNTER 2017-07-08 10:32 | Inpatient (IN) | payer MEDICARE, OTHER ==
[~2017-07-08] VITALS: Ht 177.8 cm; Wt 67.6 kg
[2017-07-08] VITALS (39 sets, daily range): BP systolic 77–111; BP diastolic 36–59
[~2017-07-08 10:32] MED LIST changes: -AMLO10TA2 PO; -BISA10SU8 RC; -HYDR-3974 PO; -NA P133E RC
--- NOTE | 2017-07-08 10:40 | NUR ---
BIBNURSE FROM SUBACUTE VIA BED DT LOW BLOOD PRESSURE. PER REPORT BP REMAINS LOW EVEN AFTER RECEIVING A 1L OF NS. PATIENT RECEIVED OBTUNDED, NOTED WITH TRACHE ON COOL AEROSOL. PT IS SATING 87% WITH O2 SUPPLEMENT AT 10LPM. PATIENT IS SR ON TELE MONITOR, BP ON LOW SIDE-- 60S. GT NOTED WITH NO ABDOMINAL DISTENTION. PATIENT WITH SAMANO CATHETER. PER REPORT PT IS ON ISOLATION FOR ESBL URINE. PATIENT HAS MIDLINE ON RADHA- WHICH APPERS, DRESSING DATED 07/08/17. PATIENT HAS LOW GRADE FEVER. SKIN IS WARM TO TOUCH. CONNECTED PT TO TELE MONITOR. MD GRAHAM AT BEDSIDE FOR EVALUATION. NOTIFIED RT WITH O2.
[2017-07-08] MEDS ORDERED: IV NS 0.9% 1,000 ML BAG IV ONE ×2 (11:00→13:00)
[2017-07-08] MEDS ORDERED: CADE40GE2 TP (11:02)
[2017-07-08] MEDS ORDERED: ACET1OOV6 HHN (11:02)
[2017-07-08] MEDS ORDERED: NUTR150016 GT (11:02)
[2017-07-08] MEDS ORDERED: MERO500V3 IV (11:02)
[2017-07-08] MEDS ORDERED: LINE600T2 GT (11:02)
[2017-07-08] MEDS ORDERED: HYDR-3974 GT (11:02)
[2017-07-08] MEDS ORDERED: ZINC220C8 GT (11:02)
[2017-07-08] MEDS ORDERED: NORM10004 IV (11:02)
[2017-07-08] MEDS ORDERED: IPRA0.2S9 IH (11:02)
[2017-07-08] MEDS ORDERED: FLUC100T8 GT (11:02)
[2017-07-08] MEDS ORDERED: ASCO500T9 GT (11:02)
[2017-07-08] MEDS ORDERED: ALBU2.5V38 IH (11:02)
[2017-07-08] MEDS ORDERED: FURO-145 GT (11:02)
[2017-07-08] MEDS ORDERED: VITA56.7 TP (11:02)
[2017-07-08] MEDS ORDERED: AMIN30LI4 GT (11:02)
[2017-07-08] MEDS ORDERED: FERR300L GT (11:02)
[2017-07-08 11:14] LABS: EOSINOPHILS # (AUTO) 0.1 /CMM (0.0-0.7); EOSINOPHILS % (AUTO) 0.8 % (0.0-6.0); HEMATOCRIT 22 % (39-51); HEMOGLOBIN 7.2 g/dL (13.5-17.5); LYMPHOCYTES # (AUTO) 0.2 /CMM (0.8-4.8); LYMPHOCYTES % (AUTO) 1.4 % (20.0-44.0); MEAN CORPUSCULAR HEMOGLOBIN 31 PG (26.0-33.0); MEAN CORPUSCULAR HGB CONC 33 g/dl (31.0-36.0); MEAN CORPUSCULAR VOLUME 95 fL (80-96); MONOCYTES # (AUTO) 0.4 /CMM (0.1-1.30); MONOCYTES % (AUTO) 2.4 % (2.0-12.0); NEUTROPHILS # (AUTO) 16.8 /CMM (1.8-8.9); NEUTROPHILS % (AUTO) 95.4 % (43.0-81.0); PLATELET COUNT (AUTO) 333 /CMM (150-450); RDW COEFFICIENT OF VARIATION 18.5 (11.5-15.0); RED BLOOD CELL COUNT(AUTO) 2.31 MIL/uL (4.5-6.0); WHITE BLOOD COUNT (AUTO) 17.6 K/uL (4.3-11.0)
[2017-07-08 11:20] LABS: APPEARANCE,URINE Cloudy (CLEAR); BILIRUBIN,URINE Negative (NEGATIVE); BLOOD, URINE Small Ery/uL (NEGATIVE); COLOR,URINE Yellow (YELLOW); KETONES,URINE Negative (NEGATIVE); LEUKOCYTE ESTERASE ,URINE Large (NEGATIVE); NITRITE, URINE Negative (NEGATIVE); PH,URINE 8.5 (5.0-8.0); PROTEIN,URINE 100 mg/dl (NEGATIVE); UGLUCOSE Negative (NEGATIVE); UROBILINOGEN,URINE 0.2 EU/dL (0.2)
[2017-07-08 11:24] LABS: CALCIUM, SERUM 8.5 mg/dL (8.5-10.1); CARBON DIOXIDE 24 mmol/L (21-32); CHLORIDE 112 mmol/L (98-107); CREATININE 2.4 mg/dL (0.6-1.3); GLUCOSE 116 mg/dL (74-106); POTASSIUM 4.6 mmol/L (3.5-5.1); SODIUM SERUM 147 mmol/L (136-145); UREA NITROGEN, BLOOD 73 mg/dL (7-18)
--- NOTE | 2017-07-08 11:24 | NUR ---
CALLED NURSING HOOKER OFF REQUESTING BED.
[2017-07-08 11:29] LABS: INR 0.99 (0.87-1.13)
[2017-07-08 11:30] LABS: BACTERIA,URINE Few /HPF (None Seen); SQUAMOUS EPITHELIAL CELL,UR Rare /HPF (None Seen); WBC,URINE TOO NUMEROUS TO COUN /HPF (0-3); YEAST,URINE Hyphal filaments /HPF (None Seen)
[2017-07-08 11:31] LABS: BAND % (MANUAL) 10 % (0.0-5.0); EOSINOPHILS % (MANUAL) 3 % (0-4); LYMPHOCYTES % (MANUAL) 4 % (16-48); MONOCYTES % (MANUAL) 4 % (0-11.0); NEUTROPHILS % (MANUAL) 79 (42-76)
[2017-07-08 11:32] LABS: TROPONIN I < 0.017 ng/mL (0.00-0.056)
[2017-07-08 11:36] LABS: ALANINE AMINOTRANSFERASE 11 U/L (12-78); ALKALINE PHOSPHATASE 122 U/L (46-116); ASPARTATE AMINOTRANSFERASE 33 U/L (15-37); BILIRUBIN,DIRECT 0.1 mg/dL (0.0-0.2); BILIRUBIN,TOTAL 0.3 mg/dL (0.2-1.0)
[2017-07-08 11:39] LABS: ALBUMIN 1.2 g/dL (3.4-5.0)
[2017-07-08] MEDS ORDERED: MEROPENEM 1 G in IV NS 0.9% 100 ML IV ONE (12:00)
[2017-07-08] MEDS ORDERED: VANCOMYCIN 1 GM in IV D5W 250 ML IV ONE (12:00)
--- NOTE | 2017-07-08 12:20 | NUR ---
REPORT GIVEN TO SAE CONTRERAS FOR CONTINUITY OF CARE/
--- NOTE | 2017-07-08 12:56 | NUR ---
ICU 255
--- NOTE | 2017-07-08 13:24 | NUR ---
2ND BAG OF IV NS STILL INFUSING. RECEIVING RN TO REASSESS FOR SEPSIS.
[2017-07-08] MEDS ORDERED: FEE PK DOSING 1 MIN EA MC ONE (14:11)
[2017-07-08] MEDS ORDERED: HYDROCODONE/APAP 5/325MG 1 EACH TABLET PO PRN (14:30)
[2017-07-08] MEDS ORDERED: IV NS 0.9% 500 ML IV ONE (14:30)
[2017-07-08] MEDS ORDERED: ONDANSETRON HCL/PF 4 MG/2 ML VIAL IVP PRN (14:30)
[2017-07-08] MEDS ORDERED: ZOLPIDEM TARTRATE 5 MG TABLET PO PRN (14:30)
--- NOTE | 2017-07-08 15:18 | NUR ---
1400: Admitted 87y/o male patient from ER for Sepsis, hypotension. With trache to cool aerosol, no respiratory distress noted at this time. SBP 80's, on IV NS bolus. S/E by Dr. Stephen, with order to place patient on vent, RT aware. He also ordered to give additional 500mL bolus and may start on Levo if fluid resuscitation ineffective. Placed on isolation prec for ESBL urine history, awaiting urine test. Skin assessment done, noted with right buttock and sacral partial thickness, both feet multiple redness, back redness, etc., taken pictures and attached to chart. Corbin cath intact. RADHA midline intact, 2LFA PIVs intact. Patient is obtunded, responds to pain. Noted with 4 extremities contracted. Temp 96.0 oral. SRF 70's on the monitor. GT intact, clamped, noted with 50mL residuals. No S/S active bleeding noted. 1500: S/E by ROBIN Schwarz, with order to may start GT feeding. She consulted ID. Obtained order for PICC line insertion for possible pressor administration. Still 80's on IV bolus ongoing. 1520: Spoke with Malika daughter and obtained consent for PICC insertion, witnessed by another nurse.
[2017-07-08] MEDS: IV D5/ 0.9% NACL 1,000 ML IV PRN (15:27)
[2017-07-08] MEDS: MEROPENEM 500 MG in IV NS 0.9% 50 ML IV SCH (15:32)
--- NOTE | 2017-07-08 16:19 | NUR ---
placed on vent per dr. nguyễn. settings as ordered zero distress noted. alarms set and audible trach midline b/s equal ambu bag at head of bed. Addendum: 07/08/17 at 1620 by JOSE MCCAULEY RT Amended: Links added.
[2017-07-08] MEDS: FIBERSOURCE HN 1,000 ML BOTTLE GT PRN (17:28)
[2017-07-08] MEDS: NOREPINEPHRINE 16 MG in IV D5W 500 ML IV PRN (17:42)
[2017-07-08] MEDS ORDERED: VORICONAZOLE 200 MG TABLET PO SCH (21:00)
[2017-07-08] MEDS: FLUCONAZOLE (100 MG) 100 MG TABLET GT SCH (21:05)
[2017-07-08] MEDS: HEPARIN SODIUM, PORCINE 5000 UNITS/1 ML VIAL SQ SCH (21:05)
[2017-07-08] MEDS: LINEZOLID 600 MG TABLET PO SCH (21:05)
[2017-07-09] VITALS (97 sets, daily range): BP systolic 88–122; BP diastolic 39–68
[2017-07-09] MEDS: MEROPENEM 500 MG in IV NS 0.9% 50 ML IV SCH ×2 (03:25→14:50)
[2017-07-09] MEDS: IV D5/ 0.9% NACL 1,000 ML IV PRN (03:25)
[2017-07-09 04:37] LABS: BASOPHILS % (AUTO) 0.1 % (0.0-2.0); EOSINOPHILS # (AUTO) 0.4 /CMM (0.0-0.7); EOSINOPHILS % (AUTO) 3.4 % (0.0-6.0); LYMPHOCYTES # (AUTO) 0.3 /CMM (0.8-4.8); LYMPHOCYTES % (AUTO) 2.9 % (20.0-44.0); MEAN CORPUSCULAR HEMOGLOBIN 36 PG (26.0-33.0); MEAN CORPUSCULAR HGB CONC 35 g/dl (31.0-36.0); MEAN CORPUSCULAR VOLUME 102 fL (80-96); MONOCYTES # (AUTO) 0.7 /CMM (0.1-1.30); MONOCYTES % (AUTO) 6.4 % (2.0-12.0); NEUTROPHILS % (AUTO) 87.2 % (43.0-81.0); PLATELET COUNT (AUTO) 281 /CMM (150-450); RDW COEFFICIENT OF VARIATION 18.2 (11.5-15.0); WHITE BLOOD COUNT (AUTO) 10.4 K/uL (4.3-11.0)
[2017-07-09 04:51] LABS: HEMATOCRIT 20 % (39-51); HEMOGLOBIN 6.9 g/dL (13.5-17.5); RED BLOOD CELL COUNT(AUTO) 1.95 MIL/uL (4.5-6.0)
[2017-07-09 04:53] LABS: CARBON DIOXIDE 23 mmol/L (21-32); CHLORIDE 114 mmol/L (98-107); GLUCOSE 104 mg/dL (74-106); MAGNESIUM 1.8 mg/dL (1.8-2.4); PHOSPHORUS 3.1 mg/dL (2.5-4.9); POTASSIUM 4.1 mmol/L (3.5-5.1); SODIUM SERUM 148 mmol/L (136-145); UREA NITROGEN, BLOOD 67 mg/dL (7-18)
[2017-07-09 05:10] LABS: EOSINOPHILS % (MANUAL) 3 % (0-4); LYMPHOCYTES % (MANUAL) 6 % (16-48); MONOCYTES % (MANUAL) 5 % (0-11.0); NEUTROPHILS % (MANUAL) 86 (42-76)
[2017-07-09 05:19] LABS: HEMOGLOBIN 7.5 g/dL (13.5-17.5)
--- NOTE | 2017-07-09 07:25 | NUR ---
RT PATIENT REC'D TRACHED ON [facility] VENT WITH SETTINGS SET BY . VENT ALARMS CHECKED + AUDIBLE. CUFF PRESSURE CHECKED BORING MACHINE OPERATOR VERTICAL. SX'D WITH SMALL AMT PALE SEMITHICK SECRETIONS. AMBU BAG AT HOB Addendum: 07/09/17 at 1137 by WES MARCANO RT Amended: Links added.
[2017-07-09] MEDS: LINEZOLID 600 MG TABLET PO SCH ×2 (08:40→21:13)
[2017-07-09] MEDS: HEPARIN SODIUM, PORCINE 5000 UNITS/1 ML VIAL SQ SCH ×2 (08:41→21:13)
[2017-07-09 09:30] LABS: ABG BASE EXCESS -0.4 mmol/L; ABG PCO2 36.9 mmHg (35.0-45.0); ABG PH 7.428 (7.350-7.450); ABG PO2 76.3 mmHg (75.0-100.0); AaDO2 166.5 mmHg; COHb 0.3 % (0.5-1.5); MetHb 0.6 % (0.0-1.5); O2Hb 93.2 % (94.0-97.0); SITE, ABG Right Radial
--- NOTE | 2017-07-09 10:00 | NUR ---
WOUND CARE CONSULT WOUND CARE RECEIVED CONSULT FOR SACRAL DECUB. PATIENT IS WELL KNOWN TO WOUND CARE AND HAS MULTIPLE SKIN ISSUES. PATIENT BEING FOLLOWED BY SURGICAL TEAM FOR ALL SKIN ISSUES AT THIS TIME. WOUND CARE WILL DEFER CONSULT AND ALL TREATMENT PLANS TO SURGICAL TEAM. PATIENT WITH NAFISA AT 12, ALL PRESSURE ULCER PREVENTION MEASURES NOTED TO BE IN PLACE. 1ST STEP LOW AIRLOSS MATTRESS IN USE FOR TREATMENT AND SKIN MANAGEMENT.
[2017-07-09] MEDS: IV 1/2NS 1000 ML 1,000 ML IV PRN (10:25)
[2017-07-09] MEDS: FIBERSOURCE HN 1,000 ML BOTTLE GT PRN (10:25)
--- NOTE | 2017-07-09 10:50 | NUR ---
CIVIL PROCESS SERVER NOTE 0720: Received patient awake, opens eyes but does not follow commands. With trache to vent, tolerated settings well. No respiratory distress noted. With GT intact, feeding tolerated. No residuals, Kept HOB elevated. SR 80's 1st degree AVB. Corbin cath intact, noted with bora colored urine drained to BSD. QUINTEN PICC intact, on Levo at 2mcg, will titrate as ordered. Remained afebrile. Isolation prec for ESBL Hx maintained and observed. 1015: Spoke with family re: code status, clarified as chem code, no chest compressions, verified by MD FREDDIE aware. 1045: No any significant changes noted at this time. Will continue to monitor.
[2017-07-09] MEDS ORDERED: VANCOMYCIN 500 MG in IV NS 0.9% 100 ML IV SCH (12:00)
[2017-07-09] MEDS: LACTOBACILLUS RHAMNOSUS GG 1 EACH CAP.SPRINK PO SCH (17:14)
[2017-07-09] MEDS: NOREPINEPHRINE 16 MG in IV D5W 500 ML IV PRN (17:14)
[2017-07-09] MEDS ORDERED: Z GUARD REMEDY 2 OZ OINT TP PRN (18:30)
--- NOTE | 2017-07-09 18:55 | NUR ---
PIN CLEANER NOTE No any significant changes noted. Remained on 1mcg of Levophed, tried titrating off but noted with SBP 80's. Placed back on Levo @ 1mcg. Will endorse to next shift.
--- NOTE | 2017-07-09 20:27 | NUR ---
rn nicu. initial assessment. received the pt rest on the bed. TRACH TO VENT CONNECTED. SHILEY#8,AC 24, TV 400,FIO2 50%, SAT 98%. NO ACUTE DISTRESS NOTED. MANAGER COMMUNITY DEVELOPMENT SHOWING NSR WITH 1ST DEGREE HB. IV RT UPPER ARM PICC LINE,LT UPPER ARM MID LINE. IVF 1/2 NS 75ML/H,LEVOPHED 1MCG/MIN. GT INTACT. FIBER SOURCE 65ML/H.FC PATENT. BALTAZAR UPPER AND LOWER EXTREMITY CONTRACTED. TURN AND REPOSITION Q2H. WILL CONTINUE TO MONITOR VITALS
[2017-07-09] MEDS: FLUCONAZOLE (100 MG) 100 MG TABLET GT SCH (21:13)
[2017-07-10] VITALS (66 sets, daily range): BP systolic 97–130; BP diastolic 45–69
[2017-07-10] MEDS: FIBERSOURCE HN 1,000 ML BOTTLE GT PRN (02:32)
[2017-07-10] MEDS: MEROPENEM 500 MG in IV NS 0.9% 50 ML IV SCH ×2 (02:32→14:59)
[2017-07-10] MEDS: IV 1/2NS 1000 ML 1,000 ML IV PRN ×2 (02:32→11:13)
--- NOTE | 2017-07-10 03:53 | NUR ---
CARBON CUTTER. AM CARE, ORAL CARE, BED BATH GIVEN. LINEN CHANGED, REMAINING SAME VENT SETTING TOLERATED WELL. SAT 98%. NO ACUTE DISTRESS NOTED. CARDIAC MONITR SHOWING NSR, IV RT UPPER ARM PICC LINE. IVF 1/2NS 75ML/H. FC PATENT. URINE DRAINING. GT INTACT. FIBER SOURCE 65ML/H. HOB ELEVATED. TURN AND REPOSITION Q2H. WILL CONTINUE TO MONITOR VITALS.
--- NOTE | 2017-07-10 05:38 | NUR ---
RT PT RECEIVED ON [facility] VENT W/ NOTED SETTING. ALARMS SET AND AUDIBLE. VENT TO RED OUTLET. AMBU BAG AT [facility]. ETT PATENT AND SECURE VIA ANCHOR FAST. NO SOB OR RESP DISTRESS NOTED ON SHIFT. Addendum: 07/10/17 at 0541 by SUSI CARMONA RT Amended: Links added. Addendum: 07/10/17 at 0550 by SUSI CARMONA RT RT (PT NOT INTUBATED) PT RECEIVED TRACHED ON [facility] VENT W/ NOTED SETTING. ALARMS SET AND AUDIBLE. VENT TO RED OUTLET. AMBU BAG AT [facility]. TRACH PATENT AND SECURE VIA TRACH TIES. NO SOB OR RESP DISTRESS NOTED ON SHIFT.
--- NOTE | 2017-07-10 06:16 | NUR ---
GUARD RANGE. GT FEEDING HELD, RESIDUAL 200ML.
--- NOTE | 2017-07-10 08:00 | NUR ---
CONSULTING MANAGER NOTES RECEIVED PT IN BED, EYES OPEN, NO ACUTE DISTRESS NOTED. TRACHE VENT SETTINGS PRESCRIBED: AC 16 TV 400 FIO2 50% PEEP 0. SUCTIONED FOR AIRWAY CLEARANCE. AFEBRILE. PT OFF LEVO. SR WITH 1ST DEGREE AV BLOCK ON FLEXIBLE MACHINING SYSTEM MACHINIST. FC PATENT DRAINING ADEQUATE URINE. QUINTEN PICC LINE IN PLACE, DRESSING CDI. GTF HELD D/T RESIDUAL OVERNIGHT. NO RESIDUAL NOTED AT THIS TIME. WILL RESTART GTF FIBERSOURCE. REPOSITIONED FOR COMFORT. ISOLATION PREC OBSERVED. WILL MONITOR CLOSELY.
[2017-07-10] MEDS: LACTOBACILLUS RHAMNOSUS GG 1 EACH CAP.SPRINK PO SCH ×2 (08:23→17:55)
[2017-07-10] MEDS: LINEZOLID 600 MG TABLET PO SCH ×2 (08:23→22:02)
[2017-07-10 08:54] LABS: BASOPHILS % (AUTO) 0.3 % (0.0-2.0); EOSINOPHILS # (AUTO) 0.6 /CMM (0.0-0.7); EOSINOPHILS % (AUTO) 9.1 % (0.0-6.0); LYMPHOCYTES # (AUTO) 0.5 /CMM (0.8-4.8); LYMPHOCYTES % (AUTO) 7.1 % (20.0-44.0); MEAN CORPUSCULAR HEMOGLOBIN 31 PG (26.0-33.0); MEAN CORPUSCULAR HGB CONC 34 g/dl (31.0-36.0); MEAN CORPUSCULAR VOLUME 94 fL (80-96); MONOCYTES # (AUTO) 0.8 /CMM (0.1-1.30); NEUTROPHILS # (AUTO) 4.5 /CMM (1.8-8.9); NEUTROPHILS % (AUTO) 70.5 % (43.0-81.0); PLATELET COUNT (AUTO) 272 /CMM (150-450); RED BLOOD CELL COUNT(AUTO) 2.18 MIL/uL (4.5-6.0); WHITE BLOOD COUNT (AUTO) 6.4 K/uL (4.3-11.0)
[2017-07-10 08:58] LABS: HEMATOCRIT 20 % (39-51); HEMOGLOBIN 6.8 g/dL (13.5-17.5)
[2017-07-10] MEDS: HEPARIN SODIUM, PORCINE 5000 UNITS/1 ML VIAL SQ SCH ×2 (08:59→22:03)
[2017-07-10 09:05] LABS: CALCIUM, SERUM 7.9 mg/dL (8.5-10.1); CARBON DIOXIDE 22 mmol/L (21-32); CHLORIDE 114 mmol/L (98-107); CREATININE 1.9 mg/dL (0.6-1.3); GLUCOSE 88 mg/dL (74-106); POTASSIUM 4.6 mmol/L (3.5-5.1); SODIUM SERUM 146 mmol/L (136-145); UREA NITROGEN, BLOOD 61 mg/dL (7-18)
--- NOTE | 2017-07-10 10:07 | NUR ---
RN NOTES DR YORK AT BEDSIDE, PT WAS SEEN AND EVALUATED. PT OFF PRESSORS. BP STABLE AT THIS TIME. NOTIFIED REGARDING CURRENT LAB RESULTS. H/H 6.8/20 PER MD TRANSFUSE 1 UNIT OF PRBC. ORDER NOTED AND CARRIED OUT. CONSENT OBTAINED FROM DAUGHTER RED VIA TELEPHONE, WITNESSED BY ANOTHER RN
[2017-07-10 12:42] LABS: BAND % (MANUAL) 1 % (0.0-5.0); EOSINOPHILS % (MANUAL) 8 % (0-4); LYMPHOCYTES % (MANUAL) 1 % (16-48); MONOCYTES % (MANUAL) 4 % (0-11.0); NEUTROPHILS % (MANUAL) 86 (42-76)
--- NOTE | 2017-07-10 18:30 | NUR ---
RN NOTES PT RESTING IN BED. NO ACUTE DISTRESS NOTED. NO CHANGE IN CONDITION. VS STABLE AT THIS TIME. S/P 1 UNIT PRBC TRANSFUSION. LABS RE-CHECK IN AM PER MD. DUE MEDS GIVEN, ALL NEEDS ATTENDED. KEPT PT COMFORTABLE. WOUND CARE RENDERED. TURNED AND REPOSITIONED TOLERATED. CLOSELY MONITORED
--- NOTE | 2017-07-10 20:11 | NUR ---
RELIGIOUS RITUAL SLAUGHTERER. INITIAL ASSESSMENT. RECEIVED THE PT REST ON THE BED, TRACH TO VENT CONNECTED. SHILEY#8,AC 16,TV 400,FIO2 50%.SAT 98%, NO ACUTE DISTRESS NOTED. METAL REED TUNER SHOWING NSR WITH 1ST DEGREE HB. GT INTACT. FIBER SOURCE 65ML/H.IV RT UPPER ARM PICC LINE IVF 1/2NS 75ML/H.FC PATENT. URINE DRAINING. AFEBRILE, WILL CONTINUE TO MONITOR VITALS.
[2017-07-10] MEDS: FLUCONAZOLE (100 MG) 100 MG TABLET GT SCH (22:02)
[2017-07-10] MEDS: ACETAMINOPHEN 325 MG TABLET PO PRN (22:31)
[2017-07-11] VITALS (30 sets, daily range): BP systolic 107–130; BP diastolic 50–67
[2017-07-11] MEDS: IV 1/2NS 1000 ML 1,000 ML IV PRN ×2 (02:42→18:24)
[2017-07-11] MEDS: FIBERSOURCE HN 1,000 ML BOTTLE GT PRN ×2 (02:42→23:27)
[2017-07-11] MEDS: MEROPENEM 500 MG in IV NS 0.9% 50 ML IV SCH ×2 (02:42→14:42)
--- NOTE | 2017-07-11 05:11 | NUR ---
ADMINISTRATOR. AM CARE, ORAL CARE, BED BATH GIVEN. LINEN CHANGED. REMAINING SAME VENT SETTING TOLERATED WELL.SAT 98%. NO ACUTE DISTRESS NOTED. IRON CUTTER SHOWING NSR WITH 1ST DEGREE HB. IN RT UPPER ARM PICC LINE IVF 1/2NS 75ML/H. GT FEEDING TOLERATED WELL. FC PATENT. URINE DRAINING. HOB ELEVATED. TURN AND REPOSITION Q2H.WILL CONTINUE TO MONITOR VITALS.
[2017-07-11 05:12] LABS: BASOPHILS # (AUTO) 0.1 /CMM (0.0-0.2); EOSINOPHILS # (AUTO) 0.9 /CMM (0.0-0.7); EOSINOPHILS % (AUTO) 12.6 % (0.0-6.0); HEMATOCRIT 24 % (39-51); HEMOGLOBIN 8.1 g/dL (13.5-17.5); LYMPHOCYTES # (AUTO) 0.7 /CMM (0.8-4.8); LYMPHOCYTES % (AUTO) 10.1 % (20.0-44.0); MEAN CORPUSCULAR HEMOGLOBIN 32 PG (26.0-33.0); MEAN CORPUSCULAR HGB CONC 33 g/dl (31.0-36.0); MEAN CORPUSCULAR VOLUME 95 fL (80-96); MONOCYTES # (AUTO) 0.7 /CMM (0.1-1.30); MONOCYTES % (AUTO) 10.2 % (2.0-12.0); NEUTROPHILS # (AUTO) 4.8 /CMM (1.8-8.9); NEUTROPHILS % (AUTO) 66.1 % (43.0-81.0); PLATELET COUNT (AUTO) 264 /CMM (150-450); RED BLOOD CELL COUNT(AUTO) 2.54 MIL/uL (4.5-6.0); WHITE BLOOD COUNT (AUTO) 7.2 K/uL (4.3-11.0)
[2017-07-11] MEDS: HEPARIN SODIUM, PORCINE 5000 UNITS/1 ML VIAL SQ SCH ×2 (08:42→20:59)
[2017-07-11] MEDS: LINEZOLID 600 MG TABLET PO SCH ×2 (08:42→21:01)
[2017-07-11] MEDS: LACTOBACILLUS RHAMNOSUS GG 1 EACH CAP.SPRINK PO SCH ×2 (08:42→17:12)
--- NOTE | 2017-07-11 10:30 | NUR ---
RN NOTE RECEIVED REPORT ON THIS PT AND UPON RECEIVING PT CARE WAS RENDERED TO SANA QUEVEDO, REPORT GIVEN TO SANA QUEVEDO.
--- NOTE | 2017-07-11 10:35 | NUR ---
RN [facility] NOTE: RECEIVED PATIENT IN BED TO ROOM 104 REPORT RECEIVED FROM SAE CONTRERAS. PATIENT VENT-TRACH DEPENDENT SATURATING WELL 97%. NO S/S OF DISCOMFORT OR PAIN. SAMANO CATHETER NOTED DRAINING CLEAR YELLOW URINE TO GRAVITY. HOB ELEVATED W/ GT FEEDING OF FIBERSOURCE@65CC/HR TOLERATING WELL. ON OFFICE MACHINE REPAIR SHOP SUPERVISOR, SR HR= 79. (L) UA MIDLINE AND (R) UA PICC LINE NOTED PATENT AND INTACT. (R) UA PICC LINE INFUSING W/ 1/2 NS @75CC/HR. BED ALARM AND LOCKED AT ALL TIMES. NEEDS ANTICIPATED.
--- NOTE | 2017-07-11 10:39 | NUR ---
CONCRETE HANDLER NOTE 0720: Received patient, opens eyes but does not follow commands. With trache to vent, tolerated settings. No respiratory distress noted. With GT intact, feeding tolerated. Kept HOB elevated. With Corbin cath intact, noted with clear bora colored urine drained to BSD. 0930: S/E by Dr. Wallace, with order to may transfer patient to [facility], CN aware. 1035: Transferred patient via bed, using ACLS protocol. VSS. Kept clean, warm and dry.
--- NOTE | 2017-07-11 18:52 | NUR ---
RN [facility] NOTE: PATIENT IN BED ASLEEP, AROUSABLE WITH TACTILE STIMULI OR WHEN CALLING HIS NAME. VENT-TRACH DEPENDENT SATURATING WELL 97%. NO S/S OF DISCOMFORT OR PAIN. SAMANO CATHETER NOTED DRAINING CLEAR YELLOW URINE TO GRAVITY. HOB ELEVATED W/ GT FEEDING OF FIBERSOURCE@65CC/HR TOLERATING WELL. AFEBRILE DURING THE SHIFT. ON POURING CRANE OPERATOR, SR W/ 1ST DEGREE AV BLOCK HR= 87. (L) UA MIDLINE AND (R) UA PICC LINE NOTED PATENT AND INTACT. (R) UA PICC LINE INFUSING W/ 1/2 NS @75CC/HR. BED ALARM AND LOCKED AT ALL TIMES. NOTED W/ X1 BM WITHIN THE SHIFT. WILL REPORT TO PM SHIFT NURSE FOR CONTINUITY OF CARE.
--- NOTE | 2017-07-11 19:30 | NUR ---
[facility] RN INITIAL NOTE RECEIVED RESTING COMFORTABLY IN BED. OPENS EYES, CAMBODIAN SPEAKING BUT IS NON VERBAL. ON MECH VENT WITH SETTINGS WELL TOLERATED AND SATURATING 97%. TELE- SR WITH 1ST DEGREE AV BLOCK. IV RADHA MIDLINE QUINTEN PICC CLEAN, DRY, PATENT WITH FLUIDS INFUSING. GTUBE FEEDING IN PLACE WITHOUT ANY RESIDUALS NOTED AT THIS TIME. HOB ELEVATED AND ON ASPIRATION PRECAUTIONS. SAMANO CATHETER IN PLACE AND DRAINING BY GRAVITY. WILL CONTINUE TO MONITOR.
[2017-07-11] MEDS: FLUCONAZOLE (100 MG) 100 MG TABLET GT SCH (21:01)
[2017-07-11] MEDS: ACETAMINOPHEN 325 MG TABLET PO PRN (21:04)
[2017-07-12] VITALS: BP 118/59
[2017-07-12] MEDS: MEROPENEM 500 MG in IV NS 0.9% 50 ML IV SCH ×2 (02:57→15:15)
[2017-07-12 04:00] VITALS: BP 118/51
--- NOTE | 2017-07-12 07:30 | NUR ---
[facility] RN INITIAL NOTE RECEIVED PATIENT RESTING IN BED. OPENS EYES, PASHTO SPEAKING BUT IS NON VERBAL. ON MECH VENT WITH SETTINGS WELL TOLERATED AND SATURATING 95%. TELE- SR WITH 1ST DEGREE AV BLOCK. IV RADHA MIDLINE QUINTEN PICC CLEAN, DRY, PATENT WITH FLUIDS INFUSING. GTUBE FEEDING IN PLACE WITHOUT ANY RESIDUALS NOTED AT THIS TIME. HOB ELEVATED AND ON ASPIRATION PRECAUTIONS. SAMANO CATHETER IN PLACE AND DRAINING BY GRAVITY. BED IN LOW AND LOCKED POSITION, WILL CONTINUE TO MONITOR.
--- NOTE | 2017-07-12 07:35 | NUR ---
[facility] RN CLOSING NOTE PT REMAINED STABLE DURING SHIFT. VENT SETTINGS WELL TOLERATED. SUCTIONED NEEDED. ORAL CARE PERFORMED. KEPT CLEAN AND DRY. REPOSITIONED Q2H. HOB ELEVATED. ALL NEEDS ATTENDED TO PROMPTLY. IV FLUIDS STILL INFUSING. WILL ENDORSE TO NEXT SHIFT FOR CONTINUITY OF CARE.
[2017-07-12 08:00] VITALS: BP 113/63
[2017-07-12] MEDS: LACTOBACILLUS RHAMNOSUS GG 1 EACH CAP.SPRINK PO SCH ×2 (08:34→16:29)
[2017-07-12] MEDS: LINEZOLID 600 MG TABLET PO SCH ×2 (08:34→21:49)
[2017-07-12] MEDS: HEPARIN SODIUM, PORCINE 5000 UNITS/1 ML VIAL SQ SCH ×2 (08:34→21:49)
[2017-07-12 12:00] VITALS: BP 106/59
[2017-07-12] MEDS: IV 1/2NS 1000 ML 1,000 ML IV PRN (15:16)
[2017-07-12] MEDS: Z GUARD REMEDY 2 OZ OINT TP PRN (15:16)
[2017-07-12 16:00] VITALS: BP 96/55
--- NOTE | 2017-07-12 18:11 | NUR ---
RT END OF THE SHIFT REPORT, PT. 87 Y OLD MALE REMAIN STABLE SINCE REC. 0700 AM. AWAKE, AND FOLLOWING COMMAND. MAGO'D DARCY # 8 ON MECHANICAL VENT, WITH NOTED SETTINGS. EQUAL CHEST RISE NOTED, TRACH IN GOOD POSITION AND SECURE. HME CHANGED LINDA VENT WELL T/O DAY B/S RHONCHI BILATERALLY AND SUX'D FOR SMALL AMT OF WHITE SECRETIONS. VENT PLUGGED INTO RED OUTLET, AMBU BAG AT THE BEDSIDE. CONTINUE FOR CARE AND MONITORING, REPORT WILL PASS TO PM SHIFT. Addendum: 07/12/17 at 1813 by JEIMY RED RT Amended: Links added.
[2017-07-12] MEDS: FIBERSOURCE HN 1,000 ML BOTTLE GT PRN (18:27)
--- NOTE | 2017-07-12 19:01 | NUR ---
[facility] RN END NOTES PATIENT RESTING IN BED, NO SIGNS OF DISTRESS, ALL NEEDS MET, CLEANED AND REPOSITIONED, WILL ENDORSE TO QUAIL FARMER FOR CONTINUITY OF CARE.
--- NOTE | 2017-07-12 19:30 | NUR ---
[facility] RN INITIAL NOTE RECEIVED RESTING COMFORTABLY IN BED. OPENS EYES, SAMOAN SPEAKING BUT IS NON VERBAL. ON MECH VENT WITH SETTINGS WELL TOLERATED AND SATURATING 98%. TELE- SR WITH 1ST DEGREE AV BLOCK. IV RADHA MIDLINE QUINTEN PICC CLEAN, DRY, PATENT WITH FLUIDS INFUSING. GTUBE FEEDING IN PLACE WITHOUT ANY RESIDUALS NOTED AT THIS TIME. HOB ELEVATED AND ON ASPIRATION PRECAUTIONS. SAMANO CATHETER IN PLACE AND DRAINING BY GRAVITY. WILL CONTINUE TO MONITOR.
[2017-07-12 20:00] VITALS: BP 125/65
[2017-07-12] MEDS: FLUCONAZOLE (100 MG) 100 MG TABLET GT SCH (21:49)
[2017-07-13] VITALS (7 sets, daily range): BP systolic 92–111; BP diastolic 44–60
[2017-07-13] MEDS: MEROPENEM 500 MG in IV NS 0.9% 50 ML IV SCH ×2 (02:23→15:11)
[2017-07-13] MEDS: IV 1/2NS 1000 ML 1,000 ML IV PRN (05:52)
[2017-07-13 06:43] LABS: CALCIUM, SERUM 7.8 mg/dL (8.5-10.1); CARBON DIOXIDE 24 mmol/L (21-32); CHLORIDE 108 mmol/L (98-107); CREATININE 1.7 mg/dL (0.6-1.3); GLUCOSE 102 mg/dL (74-106); POTASSIUM 5.1 mmol/L (3.5-5.1); SODIUM SERUM 139 mmol/L (136-145); UREA NITROGEN, BLOOD 51 mg/dL (7-18)
--- NOTE | 2017-07-13 07:10 | NUR ---
RN INITIAL NOTES: REC'D PT ON BED, NOT IN ANY DISTRESS, OBTUNDED. ON MV VIA TRACH, SATING AT 98%. ON TELEMONITOR, SR W/ HR 98 BPM. HAS RADHA MIDLINE SL & QUINTEN PICC LINE W/ 2 NS X 75 CC/HR INFUSING WELL, NO S/SX OF INFECTION/INFILTRATION NOTED. HAS GT ON CONT TUBE FEEDING FIBERSOURCE X 65 CC/HR INFUSING WELL, NO RESIDUAL NOTED UPON CHECKING. HAS FC PATENT & INTACT. PROVIDED COMFORT & SAFETY MEASURES. BED KEPT LOW & IN LOCKED POS. CALL LIGHT PLACED W/IN REACH. WILL CONTINUE TO MONITOR AND ATTEND PT NEEDS.
[2017-07-13] MEDS: LACTOBACILLUS RHAMNOSUS GG 1 EACH CAP.SPRINK PO SCH ×2 (08:06→17:06)
[2017-07-13] MEDS: LINEZOLID 600 MG TABLET PO SCH ×2 (08:06→20:13)
[2017-07-13] MEDS: Z GUARD REMEDY 2 OZ OINT TP PRN (08:06)
[2017-07-13] MEDS: HEPARIN SODIUM, PORCINE 5000 UNITS/1 ML VIAL SQ SCH ×2 (08:07→20:16)
[2017-07-13] MEDS: ACETAMINOPHEN 325 MG TABLET PO PRN (10:51)
[2017-07-13] MEDS: FIBERSOURCE HN 1,000 ML BOTTLE GT PRN (12:15)
[2017-07-13] MEDS: CADEXOMER IODINE 40 GM TUBE TP PRN (13:39)
--- NOTE | 2017-07-13 15:45 | NUR ---
RN NOTES: PER DR. DUMONT, MAY DC CURRENT IVF. CHECK CBC TODAY & COLLECT STOOL FOR OCCULT BLOOD.
[2017-07-13 16:21] LABS: BASOPHILS % (AUTO) 0.4 % (0.0-2.0); EOSINOPHILS # (AUTO) 1.2 /CMM (0.0-0.7); EOSINOPHILS % (AUTO) 18.2 % (0.0-6.0); HEMATOCRIT 24 % (39-51); HEMOGLOBIN 7.7 g/dL (13.5-17.5); LYMPHOCYTES # (AUTO) 0.6 /CMM (0.8-4.8); LYMPHOCYTES % (AUTO) 9.2 % (20.0-44.0); MEAN CORPUSCULAR HEMOGLOBIN 30 PG (26.0-33.0); MEAN CORPUSCULAR HGB CONC 33 g/dl (31.0-36.0); MEAN CORPUSCULAR VOLUME 92 fL (80-96); MONOCYTES # (AUTO) 0.3 /CMM (0.1-1.30); MONOCYTES % (AUTO) 3.9 % (2.0-12.0); NEUTROPHILS # (AUTO) 4.5 /CMM (1.8-8.9); NEUTROPHILS % (AUTO) 68.3 % (43.0-81.0); PLATELET COUNT (AUTO) 254 /CMM (150-450); RDW COEFFICIENT OF VARIATION 17.7 (11.5-15.0); RED BLOOD CELL COUNT(AUTO) 2.59 MIL/uL (4.5-6.0); WHITE BLOOD COUNT (AUTO) 6.5 K/uL (4.3-11.0)
--- NOTE | 2017-07-13 18:33 | NUR ---
RN CLOSING NOTES: PT REMAINS OBTUNDED. PT TOLERATED MV SETTINGS VIA TRACH. ON TELEMONITOR, STILL SR. RADHA MIDLINE SL & QUINTEN PICC LINE KEPT PATENT & INTACT W/ NO S/SX OF INFECTION/INFILTRATION NOTED. GT ON CONT TUBE FEEDING FIBERSOURCE X 65 CC/HR TOLERATED WELL, NO HIGH RESIDUAL W/IN SHIFT. FC KEPT PATENT & INTACT. KEPT WELL RESTED. NEEDS ATTENDED. BED KEPT LOW & IN LOCKED POS. CALL LIGHT PLACED W/IN REACH. WILL ENDORSE TO PM RN FOR BRYN. FOR STOOL COLLECTION TO TEST FOR OCCULT/BLOOD. ORDERED PLACED BY SANA (C/O LAB). INFORMED SANA & CN RE: AUTOMATIC REJECTION OF ORDER FOR STOOL OCCULT IN THE [employer]!. DR. DUMONT MADE AWARE OF EPISODE OF LOW GRADE FEVER.
--- NOTE | 2017-07-13 19:42 | NUR ---
ASSET MANAGEMENT LEAD OPENING NOTES RECEIVED REPORT FROM JOMAR Carver RN. PATIENT OBTUNDED & TRACH/VENT DEPENDENT. BREATHING NON-LABORED W/ VENT SETTINGS AC 16, TV 400, FIO2 40%, PEEP 0. ON TELE SINUS RHYTHM, HR 80S. LEFT UPPER ARM MIDLINE & RIGHT UPPER ARM PICC LINE INTACT W/ DRESSING CDI, SALINE LOCKED. G-TUBE INTACT & FLUSHING WELL W/ GTF FIBERSOURCE @ 65 ML/HR, TOLERATING WELL. NO RESIDUAL NOTED @ THIS TIME. SAMANO CATH INTACT & DRAINING YELLOW URINE. NO S/S OF PAIN OR DISCOMFORT @ THIS TIME. SAFETY MEASURES IN PLACE W/ SIDE RAILS UP, BED LOCKED & IN LOWEST POSITION & CALL LIGHT WITHIN REACH. WILL CONTINUE TO MONITOR.
[2017-07-13] MEDS: FLUCONAZOLE (100 MG) 100 MG TABLET GT SCH (20:13)
[2017-07-14] VITALS: BP 113/59
[2017-07-14 01:01] LABS: OCCULT BLOOD STOOL NEGATIVE (NEGATIVE)
[2017-07-14] MEDS: MEROPENEM 500 MG in IV NS 0.9% 50 ML IV SCH (03:09)
[2017-07-14 04:00] VITALS: BP 123/62
[2017-07-14 06:37] LABS: CALCIUM, SERUM 7.8 mg/dL (8.5-10.1); CARBON DIOXIDE 23 mmol/L (21-32); CHLORIDE 108 mmol/L (98-107); CREATININE 1.6 mg/dL (0.6-1.3); GLUCOSE 96 mg/dL (74-106); SODIUM SERUM 139 mmol/L (136-145); UREA NITROGEN, BLOOD 53 mg/dL (7-18)
--- NOTE | 2017-07-14 07:10 | NUR ---
RN INITIAL NOTES: REC'D PT ON BED, NOT IN ANY DISTRESS, OBTUNDED. ON MV VIA TRACH, SATING AT 98%. ON TELEMONITOR, SR W/ HR 82 BPM. HAS RADHA MIDLINE & QUINTEN PICC LINE SL W/ NO S/SX OF INFECTION/INFILTRATION NOTED. HAS GT ON CONT TUBE FEEDING FIBERSOURCE X 65 CC/HR INFUSING WELL, NO RESIDUAL NOTED UPON CHECKING. HAS FC PATENT & INTACT. PROVIDED COMFORT & SAFETY MEASURES. BED KEPT LOW & IN LOCKED POS. CALL LIGHT PLACED W/IN REACH. WILL CONTINUE TO MONITOR AND ATTEND PT NEEDS.
[2017-07-14 07:30] LABS: BASOPHILS % (AUTO) 0.1 % (0.0-2.0); EOSINOPHILS # (AUTO) 1.1 /CMM (0.0-0.7); EOSINOPHILS % (AUTO) 20.1 % (0.0-6.0); HEMATOCRIT 23 % (39-51); HEMOGLOBIN 7.8 g/dL (13.5-17.5); LYMPHOCYTES # (AUTO) 0.7 /CMM (0.8-4.8); LYMPHOCYTES % (AUTO) 12.1 % (20.0-44.0); MEAN CORPUSCULAR HEMOGLOBIN 34 PG (26.0-33.0); MEAN CORPUSCULAR HGB CONC 35 g/dl (31.0-36.0); MEAN CORPUSCULAR VOLUME 97 fL (80-96); MONOCYTES # (AUTO) 0.4 /CMM (0.1-1.30); NEUTROPHILS # (AUTO) 3.5 /CMM (1.8-8.9); NEUTROPHILS % (AUTO) 60.7 % (43.0-81.0); PLATELET COUNT (AUTO) 202 /CMM (150-450); RDW COEFFICIENT OF VARIATION 17.2 (11.5-15.0); RED BLOOD CELL COUNT(AUTO) 2.33 MIL/uL (4.5-6.0); WHITE BLOOD COUNT (AUTO) 5.7 K/uL (4.3-11.0)
[2017-07-14 08:00] VITALS: BP 106/56
[2017-07-14] MEDS: FIBERSOURCE HN 1,000 ML BOTTLE GT PRN (08:34)
[2017-07-14] MEDS: LACTOBACILLUS RHAMNOSUS GG 1 EACH CAP.SPRINK PO SCH ×2 (08:34→16:23)
[2017-07-14] MEDS: LINEZOLID 600 MG TABLET PO SCH (08:34)
[2017-07-14] MEDS: Z GUARD REMEDY 2 OZ OINT TP PRN (08:35)
[2017-07-14] MEDS: CADEXOMER IODINE 40 GM TUBE TP PRN (08:35)
[2017-07-14] MEDS: HEPARIN SODIUM, PORCINE 5000 UNITS/1 ML VIAL SQ SCH ×2 (08:35→21:02)
[2017-07-14 09:40] LABS: EOSINOPHILS % (MANUAL) 7 % (0-4); LYMPHOCYTES % (MANUAL) 12 % (16-48); MONOCYTES % (MANUAL) 4 % (0-11.0); NEUTROPHILS % (MANUAL) 77 (42-76)
[2017-07-14 12:00] VITALS: BP 122/52
[2017-07-14 16:00] VITALS: BP_SYST 127; BP_SYST 128; BP_DIAS 51
--- NOTE | 2017-07-14 17:32 | NUR ---
RECEIVED PATIENT TRACH ON PB 840 VENT. ALARMS VERIFIED AND AUDIBLE. SUCTIONED AND LAVAGED MODERATE-LARGE AMOUNTS OF THICK SEVERINO SECRETIONS. VENT PLUGGED INTO RED OUTLET. AMBU BAG AT [facility].
--- NOTE | 2017-07-14 18:33 | NUR ---
RN CLOSING NOTES: NO ACUTE CHANGES NOTED W/IN SHIFT. PT TOLERATED MV SETTINGS VIA TRACH. ON TELEMONITOR, STILL SR. RADHA MIDLINE SL & QUINTEN PICC LINE KEPT PATENT & INTACT W/ NO S/SX OF INFECTION/INFILTRATION NOTED. GT ON CONT TUBE FEEDING FIBERSOURCE X 65 CC/HR TOLERATED WELL, NO HIGH RESIDUAL W/IN SHIFT. FC KEPT PATENT & INTACT. KEPT WELL RESTED. NEEDS ATTENDED. BED KEPT LOW & IN LOCKED POS. CALL LIGHT PLACED W/IN REACH. WILL ENDORSE TO PM RN FOR BRYN.
--- NOTE | 2017-07-14 19:20 | NUR ---
GATE AGENT OPENING NOTES RECEIVED REPORT FROM JOMAR Carver RN. PATIENT OBTUNDED & TRACH/VENT DEPENDENT. BREATHING NON-LABORED W/ VENT SETTINGS AC 16, TV 400, FIO2 40%, PEEP 0. ON TELE SINUS RHYTHM, HR 80S. LEFT UPPER ARM MIDLINE & RIGHT UPPER ARM PICC LINE INTACT W/ DRESSING CDI, SALINE LOCKED. G-TUBE INTACT & FLUSHING WELL W/ GTF FIBERSOURCE @ 65 ML/HR, TOLERATING WELL. NO RESIDUAL NOTED @ THIS TIME. SAMANO CATH DRAINING YELLOW URINE. NO S/S OF PAIN OR DISCOMFORT @ THIS TIME. SAFETY MEASURES IN PLACE W/ SIDE RAILS UP, BED LOCKED & IN LOWEST POSITION & CALL LIGHT WITHIN REACH. SEIZURE PRECAUTIONS MAINTAINED. WILL CONTINUE TO MONITOR.
[2017-07-14 20:00] VITALS: BP 119/55
[2017-07-15] VITALS: BP 120/50
[2017-07-15] MEDS: FIBERSOURCE HN 1,000 ML BOTTLE GT PRN (01:23)
[2017-07-15 04:00] VITALS: BP 114/62
--- NOTE | 2017-07-15 07:14 | NUR ---
Male oscar pt received on a mechanical vent. Pt oscar is secure. Vent is plugged into a red outlet, alarms are set and audible, and BVM is at bedside. Addendum: 07/15/17 at 0715 by REBECCA SCHMITT RT Amended: Links added.
--- NOTE | 2017-07-15 07:15 | NUR ---
TEL RN OPENING NOTES. PT RECEIVED OBTUNDED. PT TELE: SR. PT VENT AND TRACH DEPENDANT, SETTING REVIEWED AND CORRECT. PT UNABLE TO INDICATE PAIN BUT IS WITHOUT S/S OF DISTRESS OR DISCOMFORT. PT WITH R UA PICC LINE AND L UA MIDLINE SALINE FLUSH PATENT. PT WITH G TUBE INTACT AND OPERATIONAL WITH FIBERSOURCE 65ML/HR. PT WITH SAMANO INTACT AND OPERATIONAL WITH YELLOW URINE IN COLLECTION. PT BED IN LOWEST LOCKED POSITION WITH HNADRAILSX4 AND CALL CONTRERAS WITHIN REACH. WILL CONTINUE TO MONITOR.
[2017-07-15 08:00] VITALS: BP 127/63
[2017-07-15] MEDS: LACTOBACILLUS RHAMNOSUS GG 1 EACH CAP.SPRINK PO SCH (09:36)
[2017-07-15] MEDS: HEPARIN SODIUM, PORCINE 5000 UNITS/1 ML VIAL SQ SCH (09:43)
[2017-07-15] MEDS ORDERED: SILVER NITRATE APPLICATOR 1 EA BOX TP STA (11:28)
[2017-07-15] MEDS ORDERED: LEVETIRACETAM SOL (5 ML) 100 MG/ML UDC GT SCH (11:30)
[2017-07-15] MEDS ORDERED: LIDOCAINE 1%-EPI 1:100,000 20 ML VIAL TP ONE (11:30)
--- NOTE | 2017-07-15 11:30 | NUR ---
RN NOTES. MD DUMONT REQUESTING KEPPRA 500MG BD VIA G.TUBE TO START IMMEDIATELY, ORDERS PLACED.
--- NOTE | 2017-07-15 13:30 | NUR ---
WINDOWS VMWARE ADMINISTRATOR D/C NOTES. PT PREPARED FOR D/C TOP [facility] SUBAC[facility] PER MD. PT REMAINS OBTUNDED. PT TELE: SR. PT VENT AND TRACH DEPENDANT. PT UNABLE TO INDICATE PAIN BUT IS WITHOUT S/S OF DISTRESS OR DISCOMFORT. PT WITH PATENT R UA PICC LINE AND L UA MIDLINE TO REMAIN IN SITU PER MD. PT WITH G TUBE INTACT, FEEDING CEASED AND G TUBE FLUSHED. PT WITH SAMANO INTACT AND OPERATIONAL AND REMAINING IN SITU PER MD. PT REMAINS WITHOUT PERSONAL BELONGINGS AND DOCUMENT SIGNED BY RNX2. PT OBTUNDED AND [facility] D/C PACKET PROVIDED TO SUB ACUTE RN. ALL RN DUTIES ATTENDED TO, PT APPEARS WITH S/S OR DISTRESS OR DISCOMFORT. PT REPORT CALLED TO [facility]O IN [facility] SUB ACUTE. TRANSPORT BY BED WITH RN, LUBRICATION SUPERVISOR AND RT.
[2017-07-15] MEDS ORDERED: HEPA50008 SQ (13:57)
[2017-07-15] MEDS ORDERED: LACT1CAP72 GT (13:57)
[2017-07-15] MEDS ORDERED: HYDR-552 GT (13:57)
[2017-07-15] MEDS ORDERED: ALLA266C2 TP (13:57)
[2017-07-15] MEDS ORDERED: ONDA4VIA30 IVP (13:57)
[2017-07-15] MEDS ORDERED: ZOLP5TAB8 GT (13:57)
== END 2017-07-15 12:42 | DRG 870 ==
LOC: ER 10:33 → ICU 13:00 → TELE-TD 07-11 10:30 → TELE1 07-13 15:45
PROVIDERS: ADMIT Nurse Practitioner Acute Care; ATTEND Nurse Practitioner Acute Care
PROC: 5A1955Z Respiratory Ventilation, Greater than 96 Consecutive Hours (ICD-10-PCS; principal; 2017-07-08)
DX: A41.9 Sepsis, unspecified organism (principal); J96.21 Acute and chronic respiratory failure with hypoxia; N17.0 Acute kidney failure with tubular necrosis; E43 Unspecified severe protein-calorie malnutrition; R65.21 Severe sepsis with septic shock; G93.41 Metabolic encephalopathy; L89.312 Pressure ulcer of right buttock, stage 2; L89.153 Pressure ulcer of sacral region, stage 3; E86.0 Dehydration; R53.2 Functional quadriplegia; N39.0 Urinary tract infection, site not specified; E87.0 Hyperosmolality and hypernatremia; Z93.0 Tracheostomy status; R13.10 Dysphagia, unspecified; F03.90 Unspecified dementia, unspecified severity, without behavioral disturbance, psychotic disturbance, mood disturbance, and anxiety; G40.909 Epilepsy, unspecified, not intractable, without status epilepticus; M19.90 Unspecified osteoarthritis, unspecified site; Z79.899 Other long term (current) drug therapy; Z93.1 Gastrostomy status; Z87.01 Personal history of pneumonia (recurrent); Z85.46 Personal history of malignant neoplasm of prostate; Y95 Nosocomial condition; N18.3 Chronic kidney disease, stage 3 (moderate); K21.9 Gastro-esophageal reflux disease without esophagitis; I12.9 Hypertensive chronic kidney disease with stage 1 through stage 4 chronic kidney disease, or unspecified chronic kidney disease; D63.8 Anemia in other chronic diseases classified elsewhere; F09 Unspecified mental disorder due to known physiological condition; S30.813A Abrasion of scrotum and testes, initial encounter; X58.XXXA Exposure to other specified factors, initial encounter; Y92.129 Unspecified place in nursing home as the place of occurrence of the external cause; L89.529 Pressure ulcer of left ankle, unspecified stage; L89.519 Pressure ulcer of right ankle, unspecified stage; L89.899 Pressure ulcer of other site, unspecified stage; B96.20 Unspecified Escherichia coli [E. coli] as the cause of diseases classified elsewhere; B95.2 Enterococcus as the cause of diseases classified elsewhere; B96.89 Other specified bacterial agents as the cause of diseases classified elsewhere; Z66 Do not resuscitate; K59.00 Constipation, unspecified; E03.9 Hypothyroidism, unspecified
CPT/HCPCS: 31720; 36415; 36600; 71045-TC; 80048-TC; 80076-TC; 81000-TC; 82272-TC; 82803-TC; 83605-TC; 83735-TC; 84100-TC; 84484-TC; 85025-TC; 85027-TC; 85730-TC; 86850-TC; 86921-TC; 87040-TC; 87081-TC; 87086-TC; 94002-TC; 94003-TC; 94760-TC; 99082-TC; A4216; A4606; A6253; C1751; J1644; J1953; J2185; J3370; J3490; J7030; J7040; J7042; J7050; J7060; P9016-BL; Z7610